=== PATIENT | male | born 1980 | race African-American/Black ===

== ENCOUNTER 2019-04-16 09:40 | Emergency (ER) | payer MEDICARE, OTHER ==
[~2019-04-16] VITALS: Ht 177.8 cm; Wt 68.6 kg
--- OUTSIDE RECORDS SUMMARY | 2019-04-16 09:44 | XMS REPORT | Summary of Care ---
Author Author [facility] Organization [facility] Address Unknown Phone Unavailable Encounter HQ [id number]) [id number] Date(s): 10/17/16 - 10/17/16 [facility] [address] [place] [address]- Discharge Disposition: Home or Self Care Attending Physician: Misty Duque MD Admitting Physician: Misty Duque MD Vital Signs No data available for this section Problem List Condition Effective Dates Status Health Status Informant Hypertension(Confirm Active ed) Morbid Active obesity(Confirmed) Allergies, Adverse Reactions, Alerts Substance Reaction Severity Status NKDA Active Medications No data available for this section Results No data available for this section Immunizations No data available for this section Procedures No data available for this section Social History Social History Type Response Smoking Status Never smoker; Exposure to Tobacco Smoke None; Cigarette Smoking Last 365 Days No; Reg Smoking Cessation Counseling No Assessment and Plan No data available for this section
--- OUTSIDE RECORDS SUMMARY | 2019-04-16 09:44 | XMS REPORT | Continuity of Care Document ---
Author Author [employer] Organization [employer] Address Unknown Phone Unavailable Care Team Providers Care Rim Technician Name Role Phone [employer] Unavailable Unavailable Problems Problem Status Onset Date Classification Date Reported Comments Source Unspecified abdominal pain 06/27/2018 11/03/2018 [facility] Liver disease, unspecified 05/07/2018 11/18/2018 [facility] K76.9 Active 04/21/2018 [facility] DX: R10.9/Z98.84 Active 04/09/2018 [facility] Calculus of kidney 02/16/2018 08/30/2018 [facility] N20.0 Active 02/10/2018 [facility] Calculus of ureter 11/11/2017 03/12/2018 [facility] Epigastric pain 11/03/2017 03/12/2018 [facility] ABD PAIN/ BACK PAIN Active 11/02/2017 [facility] VOMITTING Active 11/01/2017 [facility] Acute kidney failure, unspecified 10/21/2017 01/20/2018 [facility] Low back pain 10/15/2017 01/14/2018 [facility] [place] ACUTE KIDNEY INSUFFICIENCY, DEHYDRATION Active 10/11/2017 [facility] VOMITING Active 10/11/2017 [facility] UNK Active 09/10/2017 [facility] K44.9 E66.01 Active 09/10/2017 [facility] LUMBAR Active 08/12/2017 [facility] [place] XRAY Active 07/11/2017 [facility] FIRST NIGHT 53047 Active 06/12/2017 [facility] E11.9 TYPE 2 DIABETES MELLITUS WITHOUT C Active 06/02/2017 [facility] PAIN Active 10/26/2016 [facility] [place] BACK Active 10/26/2016 [facility] [place] DX: E66.01=MORBID (SEVERE) OBESITY DUE Active 10/24/2016 [facility] ABD PAIN RUQ R10.11 SY WEBB Active 07/31/2016 [facility] PAIN IN UNSPECIFIED JOINT Active 05/18/2015 [place] V58.69 - LONG-TERM USE M Active 10/07/2014 D[facility] Hypertensive disorder, systemic arterial (disorder) Active Problem 11/18/2018 [facility] [place], [facility] Morbid obesity (disorder) Active Problem 11/18/2018 [facility] [place], [facility] [place] Knee pain (finding) Resolved Problem 11/18/2018 [facility], [facility] [place] Pain in thoracic spine 01/14/2018 [facility] Abnormal posture 01/14/2018 [facility] Gastroesophageal reflux disease (disorder) Resolved Problem 08/05/2017 [facility], [facility] [place] Depressive disorder (disorder) Resolved Problem 08/05/2017 [facility], [facility] [place] Disorder of kidney and ureter, unspecified 01/20/2018 [facility] Body mass index (BMI) 40.0-44.9, adult 01/20/2018 [facility] Morbid (severe) obesity due to excess calories 02/08/2018 [facility] Dehydration 01/20/2018 [facility] Nausea with vomiting, unspecified 01/20/2018 [facility] Right upper quadrant pain 01/20/2018 [facility] Essential (primary) hypertension 03/12/2018 [facility] Arthropathic psoriasis, unspecified 01/20/2018 [facility] Bariatric surgery status 11/03/2018 [facility] Type 2 diabetes mellitus without complications 01/08/2018 [facility] Psoriasis, unspecified 01/08/2018 [facility] Unspecified osteoarthritis, unspecified site 01/08/2018 [facility] Diaphragmatic hernia without obstruction or gangrene 01/08/2018 [facility] Body mass index (BMI) 45.0-49.9, adult 01/08/2018 [facility] Gastro-esophageal reflux disease without esophagitis 02/08/2018 [facility] Vomiting, unspecified 03/12/2018 [facility] Pleural effusion, not elsewhere classified 11/03/2018 [facility] Constipation, unspecified 08/30/2018 [facility] PAIN IN UNSPECIFIED JOINT Active [facility] RIGHT UPPER QUADRANT PAIN Active [facility] LOW BACK PAIN Active [facility] OTHER HALFWAY (CURRENT) DRUG THERAPY Active [facility] PSORIASIS, UNSPECIFIED Active [facility] MORBID (SEVERE) OBESITY DUE TO EXCESS CA Active [facility] GASTRO-ESOPHAGEAL REFLUX DISEASE WITHOUT Active [facility] ENCOUNTER FOR OTHER PREPROCEDURAL EXAMIN Active [facility] DIAPHRAGMATIC HERNIA WITHOUT OBSTRUCTION Active [facility] DISORDER OF KIDNEY AND URETER, UNSPECIFI Active [facility] DEHYDRATION Active [facility] Medications Medication Details Route Status Patient Instructions Ordering Provider Order Date Source Amoxicillin 500 Mg Capsule Twice A Day Active Jobypatricia 08/04/2018 [facility] Omnipaque 300 100 mL, Route: IV, Drug Form: COLETTE SUERO, Start date: 04/16/18 11:00:00 CDT, Duration: 12 hr, Stop date: 04/16/18 22:59:00 CDTNotes: (Same as:Omnipaque 300). WASTE: F/P - Black; E - Municipal Trash Bin Inactive 04/16/2018 [facility] Phenergan 25 mg oral tablet 25 mg=1 tab, PO, Q6H, PRN Nausea, # 15 tab, 0 Refill(s) Active 11/03/2017 [facility] tramadol hydrochloride 50 MG Oral Tablet [Ultram] 50 mg=1 tab, PO, Q4H, PRN pain, X 3 day, # 20 tab, 0 Refill(s) No Longer Active 11/03/2017 [facility] tramadol hydrochloride 50 MG Oral Tablet [Ultram] 50 mg, 1 tab, Route: PO, Drug form: TAB, ONCE, Dosing Weight 118.182, kg, Priority: STAT, Start date: 11/03/17 0:08:00 CDT, Stop date: 11/03/17 0:08:00 CDTNotes: Not to exceed 400mg/day. (Same As: Ultram) Inactive 11/03/2017 [facility] Phenergan 25 mg, 1 mL, Route: IVPB, ONCE, Dosing Weight 118.182, kg, Priority: STAT, Start date: 11/03/17 0:08:00 CDT, Stop date: 11/03/17 0:08:00 CDTNotes: Do not give IV push. (Same as: Phenergan) Inactive 11/03/2017 [facility] Morphine 4 mg, 1 mL, Route: IVP, Drug form: SOLN, ONCE, Dosing Weight 118.182, kg, Priority: STAT, Start date: 11/03/17 0:07:00 CDT, Stop date: 11/03/17 0:07:00 CDTNotes: (Same as:MORPhine Sulfate) Inactive 11/03/2017 [facility] GI cocktail 30 mL, Route: PO, Drug Form: SUSP, Dosing Weight 118.182, kg, ONCE, STAT, Start date: 11/02/17 23:34:00 CDT, Stop date: 11/02/17 23:34:00 CDTNotes: G.I. Cocktail=antacid with simethicone 22.5 mL - lidocaine viscous 7.5 mL Inactive 11/03/2017 [facility] Famotidine 20 mg, 2 mL, Route: IVP, Drug form: INJ, ONCE, Dosing Weight 118.182, kg, Priority: STAT, Start date: 11/02/17 23:34:00 CDT, Stop date: 11/02/17 23:34:00 CDTNotes: (Same as: Pepcid) Can be dilute in 5-10cc NS IVP: Slow IV push over at least 2 minutes. Inactive 11/03/2017 [facility] Flomax 0.4 mg, 1 cap, Route: PO, Drug form: CAP, ONCE, Dosing Weight 118.182, kg, Start date: 11/02/17 22:29:00 CDT, Stop date: 11/02/17 22:29:00 CDTNotes: (Same As: Flomax) "Do Not Crush" No Longer Active 11/03/2017 [facility] Zofran 4 mg, 2 mL, Route: IVP, Drug form: INJ, ONCE, Dosing Weight 118.182, kg, Priority: STAT, Start date: 11/02/17 22:29:00 CDT, Stop date: 11/02/17 22:29:00 CDTNotes: (Same as: Zofran) MEDICATION WASTE Product Size: 4 mg Product Wasted: ___ mg Inactive 11/03/2017 [facility] Morphine 4 mg, 1 mL, Route: IVP, Drug form: SOLN, ONCE, Dosing Weight 118.182, kg, Priority: STAT, Start date: 11/02/17 22:29:00 CDT, Stop date: 11/02/17 22:29:00 CDTNotes: (Same as:MORPhine Sulfate) Inactive 11/03/2017 [facility] Sodium Chloride 0.9% (Bolus) IV 1,000 mL, 1000 ml/hr, Infuse Over: 1 hr, Route: IV, 1,000, Drug form: INJ, ONCE, Priority: STAT, Dosing Weight 118.182 kg, Start date: 11/02/17 21:15:00 CDT, Stop date: 11/02/17 21:15:00 CDT Inactive 11/03/2017 [facility] Ondansetron 4 mg, 2 mL, Route: IVP, Drug form: INJ, ONCE, Dosing Weight 118.182, kg, Priority: STAT, Start date: 11/02/17 21:15:00 CDT, Stop date: 11/02/17 21:15:00 CDTNotes: (Same as: Leslie) MEDICATION WASTE Product Size: 4 mg Product Wasted: ___ mg Inactive 11/03/2017 [facility] Saline Flush 0.9% 10 mL, Route: IVP, Drug Form: INJ, Dosing Weight 118.182, kg, PRN, PRN Line Flush, Start date: 11/02/17 21:15:00 CDT, Duration: 30 day, Stop date: 12/02/17 21:14:00 CDTNotes: (Same as: BD Posiflush) No Longer Active 11/03/2017 [facility] ibuprofen 800 mg oral tablet 800 mg=1 tab, PO, Q8H, PRN Pain, Take with food, X 5 day, # 30 tab, 0 Refill(s) No Longer Active 11/02/2017 [facility] Ondansetron 4 MG Disintegrating Tablet 4 mg=1 tab, PO, TID, PRN Nausea / Vomiting, Dissolve tab under tongue, # 20 tab, 0 Refill(s) Active 11/02/2017 [facility] Acetaminophen 300 MG / Codeine Phosphate 30 MG Oral Tablet [Tylenol with Codeine #3] 1 - 2 tab, PO, Q6H, PRN Pain, X 4 day, # 20 tab, 0 Refill(s) No Longer Active 11/02/2017 [facility] Tamsulosin hydrochloride 0.4 MG Oral Capsule [Flomax] 0.4 mg=1 cap, PO, QPM, May discontinue when pain free, # 7 cap, 0 Refill(s) Active 11/02/2017 [facility] Ciprofloxacin 500 MG Oral Tablet [Cipro] 500 mg=1 tab, PO, Q12H, X 7 day, # 14 tab, 0 Refill(s) No Longer Active 11/02/2017 [facility] Ketorolac 30 mg, Route: IVP, Drug form: INJ, ONCE, Dosing Weight 118.182, kg, Priority: STAT, Start date: 11/01/17 22:50:00 CDT, Stop date: 11/01/17 22:50:00 CDT Inactive 11/02/2017 [facility] Sodium Chloride 0.9% (Bolus) IV 1,000 mL, 1000 ml/hr, Infuse Over: 1 hr, Route: IV, 1,000, Drug form: INJ, ONCE, Priority: STAT, Dosing Weight 118.182 kg, Start date: 11/01/17 22:21:00 CDT, Stop date: 11/01/17 22:21:00 CDT Inactive 11/02/2017 [facility] Morphine 4 mg, 1 mL, Route: IVP, Drug form: SOLN, ONCE, Dosing Weight 118.182, kg, Priority: STAT, Start date: 11/01/17 22:21:00 CDT, Stop date: 11/01/17 22:21:00 CDTNotes: (Same as:MORPhine Sulfate) Inactive 11/02/2017 [facility] Ondansetron 4 mg, 2 mL, Route: IVP, Drug form: INJ, ONCE, Dosing Weight 118.182, kg, Priority: STAT, Start date: 11/01/17 22:21:00 CDT, Stop date: 11/01/17 22:21:00 CDTNotes: (Same as: Zofran) MEDICATION WASTE Product Size: 4 mg Product Wasted: ___ mg Inactive 11/02/2017 [facility] pantoprazole 40 MG Enteric Coated Tablet [Protonix] 40 mg=1 tab, PO, Daily, # 30 tab, 1 Refill(s), Pharmacy: [facility]/pharmacy #[id number] Active 10/14/2017 [facility] Sucralfate 100 MG/ML Oral Suspension [Carafate] 1 gm=10 ml, PO, QID-Before Meals, # 560 mL, 0 Refill(s), Pharmacy: [facility]/pharmacy #[id number] Active 10/14/2017 [facility] Amlodipine 5 mg, 1 tab, Route: PO, Drug form: TAB, Daily, Dosing Weight 129.545, kg, Start date: 10/14/17 9:00:00 CDT, Duration: 30 day, Stop date: 11/12/17 9:00:00 CDTNotes: (Same as: Norvasc) Inactive 10/14/2017 [facility] morphine Sulfate 6 mg, 3 mL, Route: PO, Drug form: SOLN, Q4H, PRN Pain Score 7-10, Start date: 10/13/17 15:08:00 CDT, Stop date: 11/12/17 15:07:00 CDTNotes: (Same as:MORPhine Sulfate) No Longer Active 10/13/2017 [facility] Reglan 10 mg, 2 mL, Route: IVP, Drug form: SOLN, Q6H, Dosing Weight 129.545, kg, Start date: 10/13/17 12:00:00 CDT, Duration: 30 day, Stop date: 11/12/17 6:00:00 CDTNotes: (Same as: Reglan) No Longer Active 10/13/2017 [facility] Sodium Chloride 0.9% IV 1,000 mL + M.V.I.-12 10 mL Daily + folic acid IV 1 mg Daily + thiamine IV 5 1,000 mL, Rate: 100 ml/hr, Infuse over: 10.2 hr, Route: IV, Dosing Weight 129.545 kg, Total Volume: 1,015.2, Start date: 10/13/17 9:34:00 CDT, Duration: 1 doses or times, Stop date: 10/13/17 19:45:00 CDT, 2.55, m2 Inactive 10/13/2017 [facility] Protonix 40 mg, Route: IVP, Drug form: INJ, Daily, Dosing Weight 129.545, kg, Patient is NPO, Start date: 10/13/17 9:00:00 CDT, Duration: 30 day, Stop date: 11/11/17 9:00:00 CDTNotes: For IV push reconstitute with 10 ml 0.9% sodium chloride and push over 2 minutes. (Same as: Protonix) No Longer Active 10/13/2017 [facility] Lovenox 40 mg, 0.4 mL, Route: SUB-Q, Drug form: INJ, [id number], Dosing Weight 129.545, kg, Start date: 10/12/17 14:00:00 CDT, Duration: 30 day, Stop date: 11/10/17 14:00:00 CDTNotes: (Same as: Lovenox) No Longer Active 10/12/2017 [facility] Sucralfate 100 MG/ML Oral Suspension [Carafate] 1 gm, 1 tab, Route: PO, Drug form: TAB, QID, Dosing Weight 129.545, kg, Start date: 10/12/17 13:00:00 CDT, Duration: 30 day, Stop date: 11/11/17 9:00:00 CDTNotes: May interfere w/enteral feeds - Take 1 hr before or 2 hr after antacids, dairy pdt, meals & minerals - On empty stomach. For patients unable to swallow tablet, dissolve in 10mL - 30mL of water or juice and stir before giving. (Same As: Carafate) No Longer Active 10/12/2017 [facility] Hydralazine 10 mg, 0.5 mL, Route: IVP, Drug form: INJ, Q6H, Dosing Weight 129.545, kg, PRN Elevated BP, Start date: 10/12/17 12:45:00 CDT, Duration: 30 day, Stop date: 11/11/17 12:44:00 CDTNotes: (Same as: Prema burroughs) Push over 5 minutes No Longer Active 10/12/2017 [facility] Morphine 2 mg, 1 mL, Route: IVP, Drug form: SOLN, Q4H, Dosing Weight 129.091, kg, PRN Pain Score 7-10, Start date: 10/12/17 12:07:00 CDT, Duration: 30 day, Stop date: 11/11/17 12:06:00 CDT No Longer Active 10/12/2017 [facility] Sodium Chloride 0.9% IV 1,000 mL + M.V.I.-12 10 mL Daily + folic acid IV 1 mg Daily + thiamine IV 5 1,000 mL, Rate: 100 ml/hr, Infuse over: 10.2 hr, Route: IV, Dosing Weight 129.545 kg, Total Volume: 1,015.2, Start date: 10/12/17 12:02:00 CDT, Duration: 1 doses or times, Stop date: 10/12/17 22:13:00 CDT, 2.55, m2 Inactive 10/12/2017 [facility] D5W 1/2NS + KCL 20mEq/L 1000ml (Premix) 1,000 mL 1,000 mL, Rate: 125 ml/hr, Infuse over: 8 hr, Route: IV, Dosing Weight 129.545 kg, Total Volume: 1,000, Start date: 10/12/17 9:28:00 CDT, Duration: 30 day, Stop date: 11/11/17 9:27:00 CDT, 2.55, c6Mlvod: PREMIX IV - Do Not Alter WASTE: F/P - Sink; E - Municipal Trash Bin No Longer Active 10/12/2017 [facility] Omnipaque 300 100 mL, Route: PO, Drug Form: SOLN, Dosing Weight 129.545, kg, ONCE, Start date: 10/12/17 8:29:00 CDT, Stop date: 10/12/17 8:29:00 CDTNotes: (Same as:Omnipaque 300). WASTE: F/P - Black; E - Municipal Trash Bin Inactive 10/12/2017 [facility] NS (Bolus) IV 1,000 mL, 1,000 ml/hr, Infuse Over: 1 hr, Route: IV, 1,000, Drug form: INJ, ONCE, Priority: STAT, Dosing Weight 129.091 kg, Start date: 10/11/17 21:03:00 CDT, Stop date: 10/11/17 21:03:00 CDT No Longer Active 10/12/2017 [facility] Saline Flush 0.9% 10 ml, Route: IVP, Drug Form: INJ, Dosing Weight 129.091, kg, PRN, PRN Line Flush, Start date: 10/11/17 21:02:00 CDT, Duration: 30 day, Stop date: 11/10/17 21:01:00 CDTNotes: (Same as: BD Posiflush) No Longer Active 10/12/2017 [facility] Sodium Chloride 0.9% IV 1,000 mL 1,000 mL, Rate: 125 ml/hr, Infuse over: 8 hr, Route: IV, Dosing Weight 129.091 kg, Total Volume: 1,000, Start date: 10/11/17 21:02:00 CDT, Duration: 30 day, Stop date: 11/10/17 21:01:00 CDT, 2.54, m2 No Longer Active 10/12/2017 [facility] Morphine 4 mg, 1 mL, Route: IVP, Drug form: SOLN, Q4H, Dosing Weight 129.091, kg, PRN Pain Score 7-10, Start date: 10/11/17 21:02:00 CDT, Duration: 30 day, Stop date: 11/10/17 21:01:00 CDTNotes: (Same as:MORPhine Sulfate) No Longer Active 10/12/2017 [facility] Ondansetron 4 mg, 2 mL, Route: IVP, Drug form: INJ, Q4H, Dosing Weight 129.091, kg, PRN Nausea & Vomiting, Start date: 10/11/17 21:02:00 CDT, Duration: 30 day, Stop date: 11/10/17 21:01:00 CDTNotes: (Same as: Leslie) MEDICATION WASTE Product Size: 4 mg Product Wasted: ___ mg No Longer Active 10/12/2017 [facility] NS (Bolus) IV 1,000 mL, 1,000 ml/hr, Infuse Over: 1 hr, Route: IV, 1,000, Drug form: INJ, ONCE, Priority: STAT, Dosing Weight 129.091 kg, Start date: 10/11/17 20:46:00 CDT, Stop date: 10/11/17 20:46:00 CDT Inactive 10/12/2017 [facility] Acetaminophen 21.7 MG/ML / Hydrocodone Bitartrate 0.5 MG/ML Oral Solution 15 mL, PO, Q6H, PRN Pain Score 4-6, 0 Refill(s) No Longer Active 10/12/2017 [facility] Acetaminophen 21.7 MG/ML / Hydrocodone Bitartrate 0.67 MG/ML Oral Solution 15 mL, PO, Q6H, PRN Pain Score 4-6, 0 Refill(s) Inactive 10/12/2017 [facility] lisinopril 40 mg oral tablet 40 mg=1 tab, PO, Daily, 0 Refill(s) Active 10/12/2017 [facility] NS 1,000 mL 1,000 mL, Rate: 125 ml/hr, Infuse over: 8 hr, Route: IV, Dosing Weight 129.091 kg, Total Volume: 1,000, Start date: 10/11/17 20:21:00 CDT, Duration: 30 day, Stop date: 11/10/17 20:20:00 CDT, 2.54, m2 Inactive 10/12/2017 [facility] Sodium Chloride 0.9% IV 984.8 mL + M.V.I.-12 10 mL Daily + folic acid IV 1 mg Daily + thiamine IV 5 984.8 mL, Rate: 100 ml/hr, Infuse over: 10 hr, Route: IV, Dosing Weight 129.091 kg, Total Volume: 1,000, Start date: 10/11/17 16:30:00 CDT, Duration: 1 doses or times, Stop date: 10/12/17 2:29:00 CDT, 2.54, m2 Inactive 10/11/2017 [facility] Ondansetron 4 mg, 2 mL, Route: IVP, Drug form: INJ, ONCE, Dosing Weight 129.091, kg, Priority: STAT, Start date: 10/11/17 15:51:00 CDT, Stop date: 10/11/17 15:51:00 CDTNotes: (Same as: Leslie) MEDICATION WASTE Product Size: 4 mg Product Wasted: ___ mg Inactive 10/11/2017 [facility] Sodium Chloride 0.9% (Bolus) IV 1,000 mL, 1000 ml/hr, Infuse Over: 1 hr, Route: IV, 1,000, Drug form: INJ, ONCE, Priority: STAT, Dosing Weight 129.091 kg, Start date: 10/11/17 15:51:00 CDT, Stop date: 10/11/17 15:51:00 CDT Inactive 10/11/2017 [facility] Saline Flush 0.9% 10 mL, Route: IVP, Drug Form: INJ, Dosing Weight 129.091, kg, PRN, PRN Line Flush, Start date: 10/11/17 15:51:00 CDT, Duration: 30 day, Stop date: 11/10/17 15:50:00 CDTNotes: (Same as: BD Posiflush) No Longer Active 10/11/2017 [facility] Bentyl 20 mg, 2 mL, Route: IM, Drug form: INJ, ONCE, Dosing Weight 129.091, kg, Start date: 10/11/17 15:51:00 CDT, Stop date: 10/11/17 15:51:00 CDTNotes: (Same as: Bentyl) Inactive 10/11/2017 [facility] Ondansetron 4 MG Oral Tablet [Zofran] 4 mg=1 tab, PO, Q6H, PRN Nausea/Vomiting, please crush before giving, # 30 tab, 0 Refill(s), Pharmacy: [facility]/pharmacy #[id number] No Longer Active 10/02/2017 [facility] Acetaminophen 21.7 MG/ML / Hydrocodone Bitartrate 0.67 MG/ML Oral Solution 15 ml, PO, Q6H, PRN for pain, X 7 day, # 400 mL, 0 Refill(s) No Longer Active 10/01/2017 [facility] pregabalin 75 mg oral capsule 75 mg=1 cap, PO, Q12H, 0 Refill(s) No Longer Active 10/01/2017 [facility] lisinopril 20 mg oral tablet 40 mg=2 tab, PO, Daily, 0 Refill(s) No Longer Active 10/01/2017 [facility] DULoxetine 30 mg oral delayed release capsule 30 mg=1 cap, PO, Daily, 0 Refill(s) Active 10/01/2017 [facility] amLODIPine 5 mg oral tablet 5 mg=1 tab, PO, Daily, 0 Refill(s) Active 10/01/2017 [facility] Ketorolac 15 mg, 1 mL, Route: IVP, Drug form: INJ, Q6H, Dosing Weight 137.841, kg, Start date: 10/01/17 12:00:00 [employer] APPRENTICE DISPENSING, Stop date: 10/03/17 6:00:00 CSTNotes: (Same as:Toradol) IV bolus must be given >15 seconds. Give IM administration slowly and deeply into the muscle. Not for use > 4 days. No Longer Active 10/01/2017 [facility] Lovenox 40 mg, 0.4 mL, Route: SUB-Q, Drug form: INJ, [id number], Dosing Weight 137.841, kg, Start date: 10/01/17 10:00:00 OPTICIAN APPRENTICE DISPENSING, Duration: 30 day, Stop date: 10/30/17 10:00:00 CDTNotes: (Same as: Lovenox) No Longer Active 10/01/2017 [facility] Sodium Chloride 0.9% IV 1,000 mL 1,000 mL, Rate: 125 ml/hr, Infuse over: 8 hr, Route: IV, Dosing Weight 137.841 kg, Total Volume: 1,000, Start date: 10/01/17 9:07:00 [employer] APPRENTICE DISPENSING, Duration: 30 day, Stop date: 10/31/17 9:06:00 CDT, 2.61, m2 No Longer Active 10/01/2017 [facility] Sodium Chloride 0.9% IV 984.8 mL + M.V.I.-12 10 mL Daily + folic acid IV 1 mg Daily + thiamine IV 5 984.8 mL, Rate: 100 ml/hr, Infuse over: 10 hr, Route: IV, Dosing Weight 137.841 kg, Total Volume: 1,000, Start date: 10/01/17 9:07:00 OPTICIAN APPRENTICE DISPENSING, Duration: 10 hr, Stop date: 10/01/17 19:06:00 [employer] APPRENTICE DISPENSING, 2.61, m2 Inactive 10/01/2017 [facility] Morphine 6 mg, 3 mL, Route: PO, Drug form: SOLN, Q4H, Dosing Weight 137.841, kg, PRN Pain Score 7-10, Start date: 10/01/17 9:07:00 OPTICIAN APPRENTICE DISPENSING, Duration: 30 day, Stop date: 10/31/17 9:06:00 CDTNotes: (Same as:MORPhine Sulfate) No Longer Active 10/01/2017 [facility] Ofirmev 1,000 mg, 31.23 mL, Route: PO, Drug form: LIQ, Q6H, Dosing Weight 137.841, kg, PRN Pain 1-3/Temp > 100.4 F, for > or=50 kg, Start date: 10/01/17 9:05:00 OPTICIAN APPRENTICE DISPENSING, Duration: 30 day, Stop date: 10/31/17 9:04:00 CDTNotes: Max erlthaighqjwz=2993nd/day (4 gm/day). (Same as: Tylenol) No Longer Active 10/01/2017 [facility] Amlodipine 10 mg, 2 tab, Route: PO, Drug form: TAB, Daily, Dosing Weight 137.841, kg, Start date: 10/01/17 9:00:00 OPTICIAN APPRENTICE DISPENSING, Duration: 30 day, Stop date: 10/30/17 9:00:00 CDTNotes: (Same as: Norvasc) No Longer Active 10/01/2017 [facility] Lisinopril 40 mg, 2 tab, Route: PO, Drug form: TAB, Daily, Dosing Weight 137.841, kg, Start date: 10/01/17 9:00:00 [employer]IC[employer] APPRENTICE DISPENSING, Duration: 30 day, Stop date: 10/30/17 9:00:00 CDTNotes: (Same as: Prinivil, Zestril) No Longer Active 10/01/2017 [facility] duloxetine 30 mg, 1 cap, Route: PO, Drug form: DRC, Daily, Dosing Weight 137.841, kg, Start date: 10/01/17 9:00:00 [employer] APPRENTICE DISPENSING, Duration: 30 day, Stop date: 10/30/17 9:00:00 CDTNotes: (Same as: Cymbalta) (Do Not Crush) No Longer Active 10/01/2017 [facility] Lyrica 75 mg, 1 cap, Route: PO, Drug form: CAP, Q12H, Dosing Weight 137.841, kg, Start date: 09/30/17 21:00:00 [employer] APPRENTICE DISPENSING, Duration: 30 day, Stop date: 10/30/17 9:00:00 CDTNotes: (Same as: Lyrica) No Longer Active 10/01/2017 [facility] Famotidine 20 mg, 2 mL, Route: IVP, Drug form: INJ, Q12H, Dosing Weight 137.841, kg, Start date: 09/30/17 21:00:00 [employer] APPRENTICE DISPENSING, Duration: 30 day, Stop date: 10/30/17 9:00:00 CDTNotes: (Same as: Pepcid) Can be dilute in 5-10cc NS IVP: Slow IV push over at least 2 minutes. No Longer Active 10/01/2017 [facility] scopolamine 1 patch, Route: TOP, Drug form: ERFILM, PRE OP, Start date: 09/30/17 19:00:00 [employer] APPRENTICE DISPENSING, Duration: 1 day, Stop date: 10/01/17 18:59:00 CSTNotes: "Remove old patch before application of new patch" Change patch every 72 hours (Same as: Transderm-Scop) No Longer Active 10/01/2017 [facility] Hydralazine 10 mg, 0.5 mL, Route: IVP, Drug form: INJ, Q6H, Dosing Weight 137.841, kg, PRN Hypertension, Start date: 09/30/17 18:34:00 [employer]PRENTICE DISPENSING, Duration: 30 day, Stop date: 10/30/17 18:33:00 CDTNotes: (Same as: Apre soline) Push over 5 minutes No Longer Active 10/01/2017 [facility] Metoclopramide 10 mg, 2 mL, Route: IVP, Drug form: SOLN, Q8H, Dosing Weight 137.841, kg, Start date: 09/30/17 16:00:00 [employer]ICIAN APPRENTICE DISPENSING, Duration: 30 day, Stop date: 10/30/17 8:00:00 CDTNotes: (Same as: Reglan) No Longer Active 09/30/2017 [facility] Labetalol 10 mg, 2 mL, Route: IVP, Drug form: INJ, ONCE, Dosing Weight 137.841, kg, Start date: 09/30/17 15:45:00 [employer]ICIAN APPRENTICE DISPENSING, Stop date: 09/30/17 15:45:00 CSTNotes: (Same as: Normodyne, Trandate) Push over 2 minutes Give bolus over 2-3 minutes. 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 Avoid use in elderly., Start date: 09/30/17 15:05:00 [employer]ICIAN APPRENTICE DISPENSING, Stop date: 09/30/17 15:05:00 [employer] APPRENTICE DISPENSING Inactive 09/30/2017 [facility] Promethazine 6.25 mg, Route: IVPB, ONCE, Dosing Weight 137.841, kg, PRN Nausea & Vomiting, Start date: 09/30/17 15:05:00 [employer]IC[employer] APPRENTICE DISPENSING No Longer Active 09/30/2017 [facility] Fentanyl 50 microgram, Route: IVP, Q5Min, Dosing Weight 137.841, kg, PRN Pain Score 7-10, Priority: Routine, Start date: 09/30/17 15:05:00 [employer] APPRENTICE DISPENSING, Duration: 2 doses or times, Stop date: Limited # of times No Longer Active 09/30/2017 [facility] Oxycodone 10 mg, Route: NG, Drug form: LIQ, Q4H, Dosing Weight 137.841, kg, PRN Pain Score 7-10, Start date: 09/30/17 15:05:00 [employer] APPR[employer]ICE DISPENSING, Duration: 30 day, Stop date: 10/30/17 15:04:00 CDT No Longer Active 09/30/2017 [facility] Hydromorphone 0.5 mg, Route: IVP, Q5Min, Dosing Weight 137.841, kg, PRN Pain Score 7-10, Start date: 09/30/17 15:05:00 [employer] APPRENTICE DISPENSING, Duration: 4 doses or times, Stop date: Limited # of times No Longer Active 09/30/2017 [facility] Naloxone 0.4 mg, Route: IVP, Q2MIN, Dosing Weight 137.841, kg, PRN Narcotic Reversal, Start date: 09/30/17 15:05:00 [employer] APPR[employer]ICE DISPENSING, Duration: 8 doses or times, Stop date: Limited # of times No Longer Active 09/30/2017 [facility] Flumazenil 0.2 mg, Route: IVP, PRN, Dosing Weight 137.841, kg, PRN Benzodiazepine Reversal, Initial dose, Start date: 09/30/17 15:05:00 [employer] APPR[employer]ICE DISPENSING, Duration: 30 day, Stop date: 10/30/17 16:04:00 CDT No Longer Active 09/30/2017 [facility] Diphenhydramine 12.5 mg, Route: IVP, Drug form: INJ, Q6H, Dosing Weight 137.841, kg, PRN Itching, Start date: 09/30/17 15:05:00 [employer]ICE DISPENSING, Duration: 30 day, Stop date: 10/30/17 15:04:00 CDT No Longer Active 09/30/2017 [facility] Albuterol 0.83 MG/ML Inhalant Solution 2.49 mg, Route: NEB, Q20Min, Dosing Weight 137.841, kg, PRN Wheezing, Priority: STAT, Start date: 09/30/17 15:05:00 [employer] APPR[employer]ICE DISPENSING, Duration: 30 day, Stop date: 10/30/17 16:04:00 CDT No Longer Active 09/30/2017 [facility] Meperidine 12.5 mg, Route: IVP, Q30Min, Dosing Weight 137.841, kg, PRN Other -See Comment, For shivering, Start date: 09/30/17 15:05:00 [employer] APPR[employer]ICE DISPENSING, Duration: 2 doses or times, Stop date: Limited # of times No Longer Active 09/30/2017 [facility] Ondansetron 4 mg, Route: IVP, ONCE, Dosing Weight 137.841, kg, PRN Nausea & Vomiting, Start date: 09/30/17 15:05:00 [employer]ICE DISPENSING No Longer Active 09/30/2017 [facility] Acetaminophen 1,000 mg, Route: IVPB, Drug form: INJ, ONCE, Dosing Weight 137.841, kg, PRN Pain Score 1-3, Start date: 09/30/17 15:05:00 [employer]ICE DISPENSING No Longer Active 09/30/2017 [facility] Naloxone 0.04 mg, 0.1 mL, Route: IVP, Drug form: INJ, Q2MIN, Dosing Weight 137.841, kg, PRN Narcotic Reversal, Start date: 09/30/17 14:59:00 [employer] APPRENTICE DISPENSING, Duration: 30 day, Stop date: 10/30/17 15:58:00 CDTNotes: Same as Narcan No Longer Active 09/30/2017 [facility] Morphine 30 mg, 30 mL, Route: IV, Initial Loading Dose: 2 mg, [employer] SPECIALIST Dose: 1 mg, [employer] HEALTH SPECIALIST Lockout: 10 minutes, Continuous Basal Rate: 0 mg, 4 Hour Limit (In MG): 30, Drug Form: INJ, Continuous, Start date: 09/30/17 14: 59:00 [employer]PR[employer]ICE DISPENSING, Duration: 30 day, Stop date: 10/30/17...Notes: Dose: Delay: Basal rate: 4hr limit: (Same as:Yelitza) No Longer Active 09/30/2017 [facility] Acetaminophen 21.7 MG/ML / Hydrocodone Bitartrate 0.5 MG/ML Oral Solution 15 mL, Route: PO, Drug Form: SOLN, Dosing Weight 137.841, kg, Q6H, PRN Pain Score 4-6, Start date: 09/30/17 14:58:00 [employer] APPR[employer]ICE DISPENSING, Duration: 30 day, Stop date: 10/30/17 14:57:00 CDTNotes: Do not exceed 4gm/day of acetaminophen. (Same as: [place] 325/7.5) No Longer Active 09/30/2017 [facility] glycopyrrolate (ANES) Route: IV, Drug form: INJ, ONCE, Stop date: 09/30/17 14:57:00 [employer] DISPENSING Inactive 09/30/2017 [facility] neostigmine (ANES) Route: IV, Drug form: INJ, ONCE, Stop date: 09/30/17 14:57:00 [employer]ICE DISPENSING Inactive 09/30/2017 [facility] Ondansetron 4 mg, 2 mL, Route: IVP, Drug form: INJ, Q12H, Dosing Weight 137.841, kg, PRN Nausea & Vomiting, Start date: 09/30/17 14:51:00 [employer]ICE DISPENSING, Duration: 30 day, Stop date: 10/30/17 14:50:00 CDTNotes: (Same as: Zofran) MEDICATION WASTE Product Size: 4 mg Product Wasted: ___ mg No Longer Active 09/30/2017 [facility] Promethazine 12.5 mg, 0.5 mL, Route: IVPB, Q4H, Dosing Weight 137.841, kg, PRN Nausea & Vomiting, Start date: 09/30/17 14:51:00 [employer]ICE DISPENSING, Duration: 30 day, Stop date: 10/30/17 14:50:00 CDTNotes: Do not give IV push. (Same as: Phenergan) No Longer Active 09/30/2017 [facility] Sodium Chloride 0.9% IV 1,000 mL 1,000 mL, Rate: 125 ml/hr, Infuse over: 8 hr, Route: IV, Dosing Weight 137.841 kg, Total Volume: 1,000, Start date: 09/30/17 14:51:00 [employer]ICE DISPENSING, Duration: 30 day, Stop date: 10/30/17 14:50:00 CDT, 2.61, m2 No Longer Active 09/30/2017 [facility] ePHEDrine (ANES) Route: IV, Drug form: INJ, ONCE, Stop date: 09/30/17 13:51:00 [employer] DISPENSING Inactive 09/30/2017 [facility] phenylephrine (ANES) Route: IV, Drug form: INJ, ONCE, Stop date: 09/30/17 13:46:00 [employer] DISPENSING Inactive 09/30/2017 [facility] ondansetron (ANES) Route: IV, Drug form: INJ, ONCE, Stop date: 09/30/17 13:41:00 [employer] DISPENSING Inactive 09/30/2017 [facility] rocuronium (ANES) Route: IV, Drug form: INJ, ONCE, Stop date: 09/30/17 13:36:00 [employer]ICE DISPENSING Inactive 09/30/2017 [facility] propofol (ANES) Route: IV, Drug form: INJ, ONCE, Stop date: 09/30/17 13:36:00 [employer] AP[employer]ICE DISPENSING Inactive 09/30/2017 [facility] fentaNYL (ANES) Route: IV, Drug form: INJ, ONCE, Stop date: 09/30/17 13:36:00 [employer] APPR[employer]ICE DISPENSING Inactive 09/30/2017 [facility] lidocaine (ANES) Route: IV, Drug form: INJ, ONCE, Stop date: 09/30/17 13:30:00 [employer]ICE DISPENSING Inactive 09/30/2017 [facility] midazolam (ANES) Route: IV, Drug form: SOLN, ONCE, Stop date: 09/30/17 13:30:00 [employer] APPR[employer]ICE DISPENSING Inactive 09/30/2017 [facility] acetaminophen (ANES) 10 mg Route: IV, Drug form: INJ, Start date: 09/30/17 13:08:00 [employer]IC[employer] APPRENTICE DISPENSING, Stop date: 09/30/17 14:08:00 [employer] APPRENTICE DISPENSING Inactive 09/30/2017 [facility] cefOXitin (ANES) 1000 mg Route: IV, Drug form: INJ, Start date: 09/30/17 12:50:00 [employer]IAN APPRENTICE DISPENSING, Stop date: 09/30/17 13:50:00 [employer] APPR[employer]ICE DISPENSING Inactive 09/30/2017 [facility] Lactated Ringers Injection IV (ANES) 1000 mL Route: IV, Total Volume: 1,000, Start date: 09/30/17 12:39:00 [employer] APPRENTICE DISPENSING, Stop date: 09/30/17 13:39:00 [employer]ICE DISPENSING Inactive 09/30/2017 [facility] 72 HR Scopolamine 0.0139 MG/HR Transdermal Patch [Transderm Scop] 1 patch, Route: TOP, Drug Form: ERFILM, Dosing Weight 140.909, kg, PRE OP, Start date: 09/30/17 10:00:00 [employer] APPRENTICE DISPENSING, Duration: 30 day, Stop date: 10/30/17 10:59:00 CDT Inactive 09/30/2017 [facility] heparin 5,000 unit, Route: SUB-Q, ONCE, Dosing Weight 140.909, kg, Start date: 09/30/17 9:33:00 [employer] APPRENTICE DISPENSING, Stop date: 09/30/17 9:33:00 [employer] APPR[employer]ICE DISPENSING Inactive 09/30/2017 [facility] Calcium Chloride 0.0014 MEQ/ML / Potassium Chloride 0.004 MEQ/ML / Sodium Chloride 0.103 MEQ/ML / Sodium Lactate 0.028 MEQ/ML Injectable Solution 1,000 mL, Rate: 25 ml/hr, Infuse over: 40 hr, Route: IV, Dosing Weight 140.909 kg, Total Volume: 1,000, Start date: 09/30/17 9:32:00 [employer]ICE DISPENSING, Duration: 30 day, Stop date: 10/30/17 9:31:00 CDT, 2.64, m2 Inactive 09/30/2017 [facility] citalopram 20 mg oral tablet 20 mg=1 tab, PO, Daily, # 30 tab, 0 Refill(s), Pharmacy: [facility]/pharmacy #[id number] Active [facility] citalopram 20 mg oral tablet 20 mg=1 tab, PO, Daily, # 30 tab, 0 Refill(s), Pharmacy: [facility]/pharmacy #[id number] Active 06/25/2017 [facility] Sodium Chloride 0.9% (Bolus) IV 500 mL, 0 ml/hr, Infuse Over: 0 hr, Route: IV, 500, Drug form: INJ, ONCE, Dosing Weight 133.636 kg, Start date: 02/17/17 14:55:00 CDT, Stop date: 02/17/17 14:55:00 CDT, Bolus Inactive 02/17/2017 [facility] Naproxen 500 mg=1 tab, PO, BID, PRN Pain, # 30 tab, 0 Refill(s) Active 02/17/2017 [facility] Allergies, Adverse Reactions, Alerts No Known Medication Allergies Immunizations No Data Provided for This Section Results Order Name Results Value Reference Range Date Interpretation Comments Source CHEM PANEL Lipase Lvl 164 73 - 393 11/03/2017 [facility] CHEM PANEL Globulin 4.1 2.7 - 4.2 11/03/2017 [facility] CHEM PANEL Total Protein 8.2 6.4 - 8.4 11/03/2017 [facility] CHEM PANEL Albumin Lvl 4.1 3.5 - 5.0 11/03/2017 [facility] CHEM PANEL A/G Ratio 1.0 0.7 - 1.6 11/03/2017 [facility] CHEM PANEL Bili Total 0.6 0.2 - 1.3 11/03/2017 [facility] CHEM PANEL Alk Phos 64 39 - 136 11/03/2017 [facility] CHEM PANEL ALT 32 0 - 65 11/03/2017 [facility] CHEM PANEL AST 16 0 - 37 11/03/2017 [facility] CHEM PANEL eGFR 70 11/03/2017 Result Comment: The eGFR is calculated using the CKD-EPI formula. In most young, healthy individuals the eGFR will be >90 mL/min/1.73m2. The eGFR declines with age. An eGFR of 60-89 may be normal in some populations, particularly the elderly, for whom the CKD-EPI formula has not been extensively validated. Use of the eGFR is not recommended in the following populations:

Individuals with unstable creatinine concentrations, including patients and those with serious co-morbid conditions.

Patients with extremes in muscle mass or diet.

The data above are obtained from the National Kidney Disease Education Program (NKDEP) which additionally recommends that when the eGFR is used in patients with extremes of body mass index for purposes of drug dosing, the eGFR should be multiplied by the estimated BMI. [facility] CHEM PANEL Potassium Lvl 3.4 3.5 - 5.1 11/03/2017 [facility] CHEM PANEL Sodium Lvl 138 135 - 145 11/03/2017 [facility] CHEM PANEL Chloride Lvl 101 95 - 109 11/03/2017 [facility] CHEM PANEL Calcium Lvl 8.8 8.5 - 10.5 11/03/2017 [facility] CHEM PANEL CO2 29 24 - 32 11/03/2017 [facility] CHEM PANEL AGAP 11.4 10.0 - 20.0 11/03/2017 [facility] CHEM PANEL B/C Ratio 3 6 - 25 11/03/2017 [facility] CHEM PANEL Glucose Lvl 77 70 - 99 11/03/2017 [facility] CHEM PANEL Creatinine Lvl 1.46 0.50 - 1.40 11/03/2017 [facility] CHEM PANEL BUN 4 7 - 22 11/03/2017 [facility] HEMATOLOGY Hgb 12.9 14.0 - 18.0 11/03/2017 [facility] Hct 39.3 42.0 - 54.0 11/03/2017 [facility] WBC 7.0 3.7 - 10.4 11/03/2017 [facility] RBC 4.70 4.70 - 6.10 11/03/2017 [facility] Platelet 327 133 - 450 11/03/2017 [facility] MPV 8.3 7.4 - 10.4 11/03/2017 [facility] MCV 83.5 80.0 - 94.0 11/03/2017 [facility] MCHC 32.8 32.0 - 36.0 11/03/2017 [facility] MCH 27.4 27.0 - 31.0 11/03/2017 [facility] RDW 14.1 11.5 - 14.5 11/03/2017 [facility] Eosinophils # 0.2 0.0 - 0.5 11/03/2017 [facility] Basophils # 0.1 0.0 - 0.2 11/03/2017 [facility] Monocytes # 0.8 0.0 - 0.8 11/03/2017 [facility] Segs-Bands # 3.3 1.5 - 8.1 11/03/2017 [facility] Lymphocytes # 2.6 1.0 - 5.5 11/03/2017 [facility] Monocytes 11.6 2.0 - 12.0 11/03/2017 [facility] Eosinophils 2.9 0.0 - 4.0 11/03/2017 [facility] Basophils 0.8 0.0 - 1.0 11/03/2017 [facility] Lymphocytes 36.9 20.0 - 40.0 11/03/2017 [facility] Segs 47.8 45.0 - 75.0 11/03/2017 [facility] URINE AND STOOL UA Bili Negative *NA* (11/02/17 10:09 PM) Negative 11/03/2017 [facility] URINE AND STOOL UA Color Yellow *NA* (11/02/17 10:09 PM) Yellow 11/03/2017 [facility] URINE AND STOOL UA Spec Grav 1.014 <=1.030 11/03/2017 [facility] URINE AND STOOL UA Turbidity Clear (11/02/17 10:09 PM) Clear 11/03/2017 [facility] URINE AND STOOL UA RBC 5 0 - 2 11/03/2017 [facility] URINE AND STOOL UA Mucus Few /LPF None Seen /LPF 11/03/2017 [facility] URINE AND STOOL UA Amorph Michelle Occasional /HPF None Seen /HPF 11/03/2017 [facility] URINE AND STOOL UA Urobilinogen <=1.0 mg/dL 0.1 - 1.0 11/03/2017 [facility] URINE AND STOOL UA Nitrite Negative (11/02/17 10:09 PM) Negative 11/03/2017 [facility] URINE AND STOOL UA Leuk Est Negative (11/02/17 10:09 PM) Negative 11/03/2017 [facility] URINE AND STOOL UA Blood Moderate *ABN* (11/02/17 10:09 PM) Negative 11/03/2017 [facility] URINE AND STOOL UA WBC 4 0 - 5 11/03/2017 [facility] URINE AND STOOL UA Sq Epi Occasional /LPF Few /LPF 11/03/2017 [facility] URINE AND STOOL UA Glucose Negative mg/dL Negative mg/dL 11/03/2017 [facility] URINE AND STOOL UA Ketones 80 mg/dL Negative mg/dL 11/03/2017 [facility] URINE AND STOOL UA pH 5.0 5.0 - 8.0 11/03/2017 [facility] URINE AND STOOL UA Protein 30 mg/dL Negative mg/dL 11/03/2017 [facility] CHEM PANEL eGFR 68 11/02/2017 Result Comment: The eGFR is calculated using the CKD-EPI formula. In most young, healthy individuals the eGFR will be >90 mL/min/1.73m2. The eGFR declines with age. An eGFR of 60-89 may be normal in some populations, particularly the elderly, for whom the CKD-EPI formula has not been extensively validated. Use of the eGFR is not recommended in the following populations:

Individuals with unstable creatinine concentrations, including patients and those with serious co-morbid conditions.

Patients with extremes in muscle mass or diet.

The data above are obtained from the National Kidney Disease Education Program (NKDEP) which additionally recommends that when the eGFR is used in patients with extremes of body mass index for purposes of drug dosing, the eGFR should be multiplied by the estimated BMI. [facility] CHEM PANEL Bili Total 0.6 0.2 - 1.3 11/02/2017 [facility] CHEM PANEL Total Protein 8.6 6.4 - 8.4 11/02/2017 [facility] CHEM PANEL AST 18 0 - 37 11/02/2017 [facility] CHEM PANEL Alk Phos 65 39 - 136 11/02/2017 [facility] CHEM PANEL Albumin Lvl 4.3 3.5 - 5.0 11/02/2017 [facility] CHEM PANEL ALT 36 0 - 65 11/02/2017 [facility] CHEM PANEL Chloride Lvl 100 95 - 109 11/02/2017 [facility] CHEM PANEL CO2 29 24 - 32 11/02/2017 [facility] CHEM PANEL Sodium Lvl 137 135 - 145 11/02/2017 [facility] CHEM PANEL Potassium Lvl 4.1 3.5 - 5.1 11/02/2017 [facility] CHEM PANEL Calcium Lvl 9.1 8.5 - 10.5 11/02/2017 [facility] CHEM PANEL Creatinine Lvl 1.50 0.50 - 1.40 11/02/2017 [facility] CHEM PANEL Glucose Lvl 113 70 - 99 11/02/2017 [facility] CHEM PANEL BUN 5 7 - 22 11/02/2017 [facility] CHEM PANEL AGAP 12.1 10.0 - 20.0 11/02/2017 [facility] CHEM PANEL B/C Ratio 3 6 - 25 11/02/2017 [facility] CHEM PANEL Globulin 4.3 2.7 - 4.2 11/02/2017 [facility] CHEM PANEL A/G Ratio 1.0 0.7 - 1.6 11/02/2017 [facility] CHEM PANEL Lipase Lvl 168 73 - 393 11/02/2017 [facility] HEMATOLOGY WBC 9.3 3.7 - 10.4 11/02/2017 [facility] HEMATOLOGY RBC 4.91 4.70 - 6.10 11/02/2017 [facility] HEMATOLOGY MPV 8.6 7.4 - 10.4 11/02/2017 [facility] HEMATOLOGY Hgb 13.4 14.0 - 18.0 11/02/2017 [facility] HEMATOLOGY Hct 41.0 42.0 - 54.0 11/02/2017 [facility] HEMATOLOGY MCV 83.5 80.0 - 94.0 11/02/2017 [facility] HEMATOLOGY MCHC 32.7 32.0 - 36.0 11/02/2017 [facility] HEMATOLOGY MCH 27.3 27.0 - 31.0 11/02/2017 [facility] HEMATOLOGY Platelet 317 133 - 450 11/02/2017 [facility] HEMATOLOGY RDW 14.2 11.5 - 14.5 11/02/2017 [facility] HEMATOLOGY Monocytes 7.5 2.0 - 12.0 11/02/2017 [facility] HEMATOLOGY Lymphocytes 12.6 20.0 - 40.0 11/02/2017 [facility] HEMATOLOGY Segs 79.1 45.0 - 75.0 11/02/2017 [facility] HEMATOLOGY Monocytes # 0.7 0.0 - 0.8 11/02/2017 [facility] HEMATOLOGY Lymphocytes # 1.2 1.0 - 5.5 11/02/2017 [facility] HEMATOLOGY Basophils 0.4 0.0 - 1.0 11/02/2017 [facility] HEMATOLOGY Eosinophils 0.4 0.0 - 4.0 11/02/2017 [facility] HEMATOLOGY Segs-Bands # 7.4 1.5 - 8.1 11/02/2017 [facility] URINE AND STOOL UA Color Anastasia 11/02/2017 [facility] URINE AND STOOL UA WBC Cast 4 <=0 /LPF 11/02/2017 [facility] URINE AND STOOL UA Sq Epi Moderate /LPF Few /LPF 11/02/2017 [facility] URINE AND STOOL UA Mucus Many /LPF None Seen /LPF 11/02/2017 [facility] URINE AND STOOL UA Hyal Cast 86 0 - 2 11/02/2017 [facility] URINE AND STOOL UA RBC 5 0 - 2 11/02/2017 [facility] URINE AND STOOL UA WBC 17 0 - 5 11/02/2017 [facility] URINE AND STOOL UA Leuk Est Negative (11/01/17 10:56 PM) Negative 11/02/2017 [facility] URINE AND STOOL UA Nitrite Negative (11/01/17 10:56 PM) Negative 11/02/2017 [facility] URINE AND STOOL UA Urobilinogen 2.0 0.1 - 1.0 11/02/2017 [facility] URINE AND STOOL UA Blood Negative (11/01/17 10:56 PM) Negative 11/02/2017 [facility] URINE AND STOOL UA Bili Small *ABN* (11/01/17 10:56 PM) Negative 11/02/2017 [facility] URINE AND STOOL UA Glucose 50 mg/dL Negative mg/dL 11/02/2017 [facility] URINE AND STOOL UA pH 6.0 5.0 - 8.0 11/02/2017 [facility] URINE AND STOOL UA Spec Grav 1.027 <=1.030 11/02/2017 [facility] URINE AND STOOL UA Ketones 80 mg/dL Negative mg/dL 11/02/2017 [facility] URINE AND STOOL UA Protein 100 mg/dL Negative mg/dL 11/02/2017 [facility] URINE AND STOOL UA Turbidity Marked *ABN* (11/01/17 10:56 PM) Clear 11/02/2017 [facility] Culture: Urine <10,000 CFU/mL Skin Digna 11/02/2017 [facility] CHEM PANEL eGFR 79 10/13/2017 Result Comment: The eGFR is calculated using the CKD-EPI formula. In most young, healthy individuals the eGFR will be >90 mL/min/1.73m2. The eGFR declines with age. An eGFR of 60-89 may be normal in some populations, particularly the elderly, for whom the CKD-EPI formula has not been extensively validated. Use of the eGFR is not recommended in the following populations:

Individuals with unstable creatinine concentrations, including patients and those with serious co-morbid conditions.

Patients with extremes in muscle mass or diet.

The data above are obtained from the National Kidney Disease Education Program (NKDEP) which additionally recommends that when the eGFR is used in patients with extremes of body mass index for purposes of drug dosing, the eGFR should be multiplied by the estimated BMI. [facility] CHEM PANEL Glucose Lvl 75 70 - 99 10/13/2017 [facility] CHEM PANEL Sodium Lvl 140 135 - 145 10/13/2017 [facility] CHEM PANEL BUN 10 7 - 22 10/13/2017 [facility] CHEM PANEL Creatinine Lvl 1.17 0.50 - 1.40 10/13/2017 [facility] CHEM PANEL Chloride Lvl 104 95 - 109 10/13/2017 [facility] CHEM PANEL CO2 26 24 - 32 10/13/2017 [facility] CHEM PANEL Potassium Lvl 3.4 3.5 - 5.1 10/13/2017 [facility] CHEM PANEL Calcium Lvl 9.0 8.5 - 10.5 10/13/2017 [facility] CHEM PANEL AGAP 13.4 10.0 - 20.0 10/13/2017 [facility] CHEM PANEL Phosphorus 4.2 2.5 - 4.5 10/12/2017 [facility] CHEM PANEL Magnesium Lvl 2.6 1.8 - 2.4 10/12/2017 [facility] CHEM PANEL eGFR 52 10/12/2017 Result Comment: The eGFR is calculated using the CKD-EPI formula. In most young, healthy individuals the eGFR will be >90 mL/min/1.73m2. The eGFR declines with age. An eGFR of 60-89 may be normal in some populations, particularly the elderly, for whom the CKD-EPI formula has not been extensively validated. Use of the eGFR is not recommended in the following populations:

Individuals with unstable creatinine concentrations, including patients and those with serious co-morbid conditions.

Patients with extremes in muscle mass or diet.

The data above are obtained from the National Kidney Disease Education Program (NKDEP) which additionally recommends that when the eGFR is used in patients with extremes of body mass index for purposes of drug dosing, the eGFR should be multiplied by the estimated BMI. [facility] CHEM PANEL Alk Phos 60 39 - 136 10/12/2017 [facility] CHEM PANEL Bili Total 0.7 0.2 - 1.3 10/12/2017 [facility] CHEM PANEL Globulin 4.4 2.7 - 4.2 10/12/2017 [facility] CHEM PANEL ALT 48 0 - 65 10/12/2017 [facility] CHEM PANEL AST 21 0 - 37 10/12/2017 [facility] CHEM PANEL A/G Ratio 0.9 0.7 - 1.6 10/12/2017 [facility] CHEM PANEL Total Protein 8.2 6.4 - 8.4 10/12/2017 [facility] CHEM PANEL Chloride Lvl 103 95 - 109 10/12/2017 [facility] CHEM PANEL Potassium Lvl 3.7 3.5 - 5.1 10/12/2017 [facility] CHEM PANEL Calcium Lvl 8.3 8.5 - 10.5 10/12/2017 [facility] CHEM PANEL B/C Ratio 13 6 - 25 10/12/2017 [facility] CHEM PANEL Sodium Lvl 141 135 - 145 10/12/2017 [facility] CHEM PANEL Creatinine Lvl 1.65 0.50 - 1.40 10/12/2017 [facility] CHEM PANEL BUN 21 7 - 22 10/12/2017 [facility] CHEM PANEL Glucose Lvl 69 70 - 99 10/12/2017 [facility] CHEM PANEL Albumin Lvl 3.8 3.5 - 5.0 10/12/2017 [facility] CHEM PANEL AGAP 13.7 10.0 - 20.0 10/12/2017 [facility] CHEM PANEL CO2 28 24 - 32 10/12/2017 [facility] ENDOCRINOLOGY S Preg Negative *NA* (10/12/17 5:50 AM) Negative 10/12/2017 [facility] HEMATOLOGY Eosinophils # 0.2 0.0 - 0.5 10/12/2017 [facility] HEMATOLOGY Basophils # 0.1 0.0 - 0.2 10/12/2017 [facility] HEMATOLOGY Monocytes # 0.7 0.0 - 0.8 10/12/2017 [facility] HEMATOLOGY Basophils 1.7 0.0 - 1.0 10/12/2017 [facility] HEMATOLOGY Lymphocytes # 2.7 1.0 - 5.5 10/12/2017 [facility] Segs-Bands # 3.5 1.5 - 8.1 10/12/2017 [facility] Monocytes 9.8 2.0 - 12.0 10/12/2017 [facility] Eosinophils 2.8 0.0 - 4.0 10/12/2017 [facility] HEMATOLOGY Segs 49.0 45.0 - 75.0 10/12/2017 [facility] Lymphocytes 36.7 20.0 - 40.0 10/12/2017 [facility] Hct 39.6 42.0 - 54.0 10/12/2017 [facility] MCV 84.5 80.0 - 94.0 10/12/2017 [facility] MCH 27.9 27.0 - 31.0 10/12/2017 [facility] RDW 14.0 11.5 - 14.5 10/12/2017 [facility] MPV 8.0 7.4 - 10.4 10/12/2017 [facility] HEMATOLOGY Platelet 395 133 - 450 10/12/2017 [facility] MCHC 33.0 32.0 - 36.0 10/12/2017 [facility] WBC 7.2 3.7 - 10.4 10/12/2017 [facility] RBC 4.69 4.70 - 6.10 10/12/2017 [facility] Hgb 13.1 14.0 - 18.0 10/12/2017 [facility] URINE AND STOOL UA Urobilinogen <=1.0 mg/dL 0.1 - 1.0 10/12/2017 [facility] URINE AND STOOL UA Mucus Few /LPF None Seen /LPF 10/12/2017 [facility] URINE AND STOOL UA Hyal Cast 8 0 - 2 10/12/2017 [facility] URINE AND STOOL UA Ketones 80 mg/dL Negative mg/dL 10/12/2017 [facility] URINE AND STOOL UA Bili Negative *NA* (10/12/17 3:02 AM) Negative 10/12/2017 [facility] URINE AND STOOL UA Blood Negative (10/12/17 3:02 AM) Negative 10/12/2017 [facility] URINE AND STOOL UA Nitrite Negative (10/12/17 3:02 AM) Negative 10/12/2017 [facility] URINE AND STOOL UA Glucose Negative mg/dL Negative mg/dL 10/12/2017 [facility] URINE AND STOOL UA Leuk Est Negative (10/12/17 3:02 AM) Negative 10/12/2017 [facility] URINE AND STOOL UA RBC <1 0 - 2 10/12/2017 [facility] URINE AND STOOL UA Sq Epi Occasional /LPF Few /LPF 10/12/2017 [facility] URINE AND STOOL UA WBC 2 0 - 5 10/12/2017 [facility] URINE AND STOOL UA Protein 30 mg/dL Negative mg/dL 10/12/2017 [facility] URINE AND STOOL UA Color Yellow *NA* (10/12/17 3:02 AM) Yellow 10/12/2017 [facility] URINE AND STOOL UA Turbidity Slight *ABN* (10/12/17 3:02 AM) Clear 10/12/2017 [facility] URINE AND STOOL UA Spec Grav 1.020 <=1.030 10/12/2017 [facility] URINE AND STOOL UA pH 5.0 5.0 - 8.0 10/12/2017 [facility] CARDIAC ENZYMES CK MB Index <0.3 0.0 - 2.5 10/11/2017 [facility] CARDIAC ENZYMES Total CK 198 12 - 191 10/11/2017 [facility] CARDIAC ENZYMES CK MB <0.5 0.5 - 3.6 10/11/2017 [facility] CARDIAC ENZYMES Troponin-I <0.02 0.00 - 0.40 10/11/2017 [facility] CHEM PANEL Lipase Lvl 213 73 - 393 10/11/2017 [facility] CHEM PANEL Phosphorus 5.1 2.5 - 4.5 10/11/2017 [facility] CHEM PANEL Magnesium Lvl 3.0 1.8 - 2.4 10/11/2017 [facility] CHEM PANEL VITAMIN B1 (THIAMINE) WHOLE BLOOD 141.8 66.5 - 200.0 10/11/2017 Result Comment:
This test was developed and its performance characteristics
determined by [facility]. It has not been cleared or
approved by the Food and Drug Administration.
[facility] At[facility]
[address], [place] [id number]
Tapan Merritt MD Ph:[phone] [facility] CHEM PANEL eGFR 24 10/11/2017 Result Comment: The eGFR is calculated using the CKD-EPI formula. In most young, healthy individuals the eGFR will be >90 mL/min/1.73m2. The eGFR declines with age. An eGFR of 60-89 may be normal in some populations, particularly the elderly, for whom the CKD-EPI formula has not been extensively validated. Use of the eGFR is not recommended in the following populations:

Individuals with unstable creatinine concentrations, including patients and those with serious co-morbid conditions.

Patients with extremes in muscle mass or diet.

The data above are obtained from the National Kidney Disease Education Program (NKDEP) which additionally recommends that when the eGFR is used in patients with extremes of body mass index for purposes of drug dosing, the eGFR should be multiplied by the estimated BMI. [facility] CHEM PANEL Potassium Lvl 3.9 3.5 - 5.1 10/11/2017 [facility] CHEM PANEL CO2 24 24 - 32 10/11/2017 [facility] CHEM PANEL Chloride Lvl 98 95 - 109 10/11/2017 [facility] CHEM PANEL Sodium Lvl 138 135 - 145 10/11/2017 [facility] CHEM PANEL Creatinine Lvl 3.10 0.50 - 1.40 10/11/2017 [facility] CHEM PANEL BUN 27 7 - 22 10/11/2017 [facility] CHEM PANEL Glucose Lvl 94 70 - 99 10/11/2017 [facility] CHEM PANEL Alk Phos 68 39 - 136 10/11/2017 [facility] CHEM PANEL AGAP 19.9 10.0 - 20.0 10/11/2017 [facility] CHEM PANEL Bili Total 0.8 0.2 - 1.3 10/11/2017 [facility] CHEM PANEL AST 24 0 - 37 10/11/2017 [facility] CHEM PANEL Total Protein 9.3 6.4 - 8.4 10/11/2017 [facility] CHEM PANEL ALT 56 0 - 65 10/11/2017 [facility] CHEM PANEL Albumin Lvl 4.5 3.5 - 5.0 10/11/2017 [facility] CHEM PANEL Calcium Lvl 9.1 8.5 - 10.5 10/11/2017 [facility] CHEM PANEL A/G Ratio 0.9 0.7 - 1.6 10/11/2017 [facility] CHEM PANEL Globulin 4.8 2.7 - 4.2 10/11/2017 [facility] CHEM PANEL B/C Ratio 9 6 - 25 10/11/2017 [facility] HEMATOLOGY RDW 14.2 11.5 - 14.5 10/11/2017 [facility] HEMATOLOGY Platelet 466 133 - 450 10/11/2017 [facility] MCHC 33.0 32.0 - 36.0 10/11/2017 [facility] MCH 27.7 27.0 - 31.0 10/11/2017 [facility] MPV 8.2 7.4 - 10.4 10/11/2017 [facility] Hgb 14.1 14.0 - 18.0 10/11/2017 [facility] HEMATOLOGY WBC 8.0 3.7 - 10.4 10/11/2017 [facility] HEMATOLOGY RBC 5.09 4.70 - 6.10 10/11/2017 [facility] HEMATOLOGY Hct 42.7 42.0 - 54.0 10/11/2017 [facility] HEMATOLOGY MCV 83.8 80.0 - 94.0 10/11/2017 [facility] HEMATOLOGY Lymphocytes # 2.4 1.0 - 5.5 10/11/2017 [facility] HEMATOLOGY Monocytes # 0.7 0.0 - 0.8 10/11/2017 [facility] HEMATOLOGY Basophils 1.0 0.0 - 1.0 10/11/2017 [facility] HEMATOLOGY Segs-Bands # 4.7 1.5 - 8.1 10/11/2017 [facility] HEMATOLOGY Segs 58.9 45.0 - 75.0 10/11/2017 [facility] HEMATOLOGY Lymphocytes 30.5 20.0 - 40.0 10/11/2017 [facility] HEMATOLOGY Eosinophils 0.9 0.0 - 4.0 10/11/2017 [facility] HEMATOLOGY Monocytes 8.7 2.0 - 12.0 10/11/2017 [facility] HEMATOLOGY Eosinophils # 0.1 0.0 - 0.5 10/11/2017 [facility] HEMATOLOGY Basophils # 0.1 0.0 - 0.2 10/11/2017 [facility] ELECTROLYTES AGAP 13.8 10.0 - 20.0 10/01/2017 [facility] ELECTROLYTES eGFR 89 10/01/2017 Result Comment: The eGFR is calculated using the CKD-EPI formula. In most young, healthy individuals the eGFR will be >90 mL/min/1.73m2. The eGFR declines with age. An eGFR of 60-89 may be normal in some populations, particularly the elderly, for whom the CKD-EPI formula has not been extensively validated. Use of the eGFR is not recommended in the following populations:

Individuals with unstable creatinine concentrations, including patients and those with serious co-morbid conditions.

Patients with extremes in muscle mass or diet.

The data above are obtained from the National Kidney Disease Education Program (NKDEP) which additionally recommends that when the eGFR is used in patients with extremes of body mass index for purposes of drug dosing, the eGFR should be multiplied by the estimated BMI. [facility] ELECTROLYTES BUN 8 7 - 22 10/01/2017 [facility] ELECTROLYTES Glucose Lvl 108 70 - 99 10/01/2017 [facility] ELECTROLYTES Creatinine Lvl 1.06 0.50 - 1.40 10/01/2017 [facility] ELECTROLYTES Chloride Lvl 101 95 - 109 10/01/2017 [facility] ELECTROLYTES CO2 24 24 - 32 10/01/2017 [facility] ELECTROLYTES Sodium Lvl 135 135 - 145 10/01/2017 [facility] ELECTROLYTES Potassium Lvl 3.8 3.5 - 5.1 10/01/2017 [facility] ELECTROLYTES Calcium Lvl 8.9 8.5 - 10.5 10/01/2017 [facility] HEMATOLOGY WBC 12.9 3.7 - 10.4 10/01/2017 [facility] RBC 4.75 4.70 - 6.10 10/01/2017 [facility] Hct 40.3 42.0 - 54.0 10/01/2017 [facility] Hgb 13.2 14.0 - 18.0 10/01/2017 [facility] MCH 27.7 27.0 - 31.0 10/01/2017 [facility] Platelet 358 133 - 450 10/01/2017 [facility] MPV 8.2 7.4 - 10.4 10/01/2017 [facility] MCHC 32.7 32.0 - 36.0 10/01/2017 [facility] HEMATOLOGY RDW 14.0 11.5 - 14.5 10/01/2017 [facility] HEMATOLOGY MCV 84.7 80.0 - 94.0 10/01/2017 [facility] HEMATOLOGY Monocytes # 0.8 0.0 - 0.8 10/01/2017 [facility] HEMATOLOGY Lymphocytes # 1.6 1.0 - 5.5 10/01/2017 [facility] HEMATOLOGY Segs-Bands # 10.4 1.5 - 8.1 10/01/2017 [facility] HEMATOLOGY Segs 81.0 45.0 - 75.0 10/01/2017 [facility] HEMATOLOGY Basophils # 0.1 0.0 - 0.2 10/01/2017 [facility] HEMATOLOGY Basophils 0.5 0.0 - 1.0 10/01/2017 [facility] HEMATOLOGY Monocytes 6.0 2.0 - 12.0 10/01/2017 [facility] Lymphocytes 12.5 20.0 - 40.0 10/01/2017 [facility] ELECTROLYTES AGAP 13.4 10.0 - 20.0 09/30/2017 [facility] eGFR 65 09/30/2017 Result Comment: The eGFR is calculated using the CKD-EPI formula. In most young, healthy individuals the eGFR will be >90 mL/min/1.73m2. The eGFR declines with age. An eGFR of 60-89 may be normal in some populations, particularly the elderly, for whom the CKD-EPI formula has not been extensively validated. Use of the eGFR is not recommended in the following populations:

Individuals with unstable creatinine concentrations, including patients and those with serious co-morbid conditions.

Patients with extremes in muscle mass or diet.

The data above are obtained from the National Kidney Disease Education Program (NKDEP) which additionally recommends that when the eGFR is used in patients with extremes of body mass index for purposes of drug dosing, the eGFR should be multiplied by the estimated BMI. [facility] ELECTROLYTES CO2 26 24 - 32 09/30/2017 [facility] ELECTROLYTES Calcium Lvl 8.8 8.5 - 10.5 09/30/2017 [facility] ELECTROLYTES Potassium Lvl 4.4 3.5 - 5.1 09/30/2017 [facility] ELECTROLYTES Sodium Lvl 135 135 - 145 09/30/2017 [facility] ELECTROLYTES Chloride Lvl 100 95 - 109 09/30/2017 [facility] ELECTROLYTES Creatinine Lvl 1.38 0.50 - 1.40 09/30/2017 [facility] ELECTROLYTES BUN 13 7 - 22 09/30/2017 [facility] ELECTROLYTES Glucose Lvl 146 70 - 99 09/30/2017 [facility] HEMATOLOGY Basophils # 0.1 0.0 - 0.2 09/30/2017 [facility] HEMATOLOGY Segs-Bands # 14.5 1.5 - 8.1 09/30/2017 [facility] HEMATOLOGY Basophils 0.6 0.0 - 1.0 09/30/2017 [facility] HEMATOLOGY Lymphocytes # 0.9 1.0 - 5.5 09/30/2017 [facility] Monocytes # 0.6 0.0 - 0.8 09/30/2017 [facility] Monocytes 3.5 2.0 - 12.0 09/30/2017 [facility] HEMATOLOGY Eosinophils 0.1 0.0 - 4.0 09/30/2017 [facility] Lymphocytes 5.8 20.0 - 40.0 09/30/2017 [facility] Segs 90.0 45.0 - 75.0 09/30/2017 [facility] MCH 27.9 27.0 - 31.0 09/30/2017 [facility] MCHC 33.0 32.0 - 36.0 09/30/2017 [facility] RDW 14.1 11.5 - 14.5 09/30/2017 [facility] Platelet 338 133 - 450 09/30/2017 [facility] MPV 8.0 7.4 - 10.4 09/30/2017 [facility] WBC 16.0 3.7 - 10.4 09/30/2017 [facility] RBC 4.91 4.70 - 6.10 09/30/2017 [facility] Hgb 13.7 14.0 - 18.0 09/30/2017 [facility] Hct 41.5 42.0 - 54.0 09/30/2017 [facility] MCV 84.5 80.0 - 94.0 09/30/2017 [facility] BLOOD BANK RESULTS Antibody Scrn Negative (09/25/17 12:35 PM) 09/25/2017 [facility] BLOOD BANK RESULTS ABO/Rh O POS 09/25/2017 [facility] ELECTROLYTES AGAP 14.1 10.0 - 20.0 09/25/2017 [facility] ELECTROLYTES Globulin 4.0 2.7 - 4.2 09/25/2017 [facility] ELECTROLYTES B/C Ratio 8 6 - 25 09/25/2017 [facility] ELECTROLYTES A/G Ratio 1.0 0.7 - 1.6 09/25/2017 [facility] ELECTROLYTES eGFR 85 09/25/2017 Result Comment: The eGFR is calculated using the CKD-EPI formula. In most young, healthy individuals the eGFR will be >90 mL/min/1.73m2. The eGFR declines with age. An eGFR of 60-89 may be normal in some populations, particularly the elderly, for whom the CKD-EPI formula has not been extensively validated. Use of the eGFR is not recommended in the following populations:

Individuals with unstable creatinine concentrations, including patients and those with serious co-morbid conditions.

Patients with extremes in muscle mass or diet.

The data above are obtained from the National Kidney Disease Education Program (NKDEP) which additionally recommends that when the eGFR is used in patients with extremes of body mass index for purposes of drug dosing, the eGFR should be multiplied by the estimated BMI. [facility] ELECTROLYTES Bili Total 0.4 0.2 - 1.3 09/25/2017 [facility] ELECTROLYTES AST 13 0 - 37 09/25/2017 [facility] ELECTROLYTES ALT 23 0 - 65 09/25/2017 [facility] ELECTROLYTES Alk Phos 60 39 - 136 09/25/2017 [facility] ELECTROLYTES Albumin Lvl 4.1 3.5 - 5.0 09/25/2017 [facility] ELECTROLYTES Total Protein 8.1 6.4 - 8.4 09/25/2017 [facility] ELECTROLYTES Calcium Lvl 8.8 8.5 - 10.5 09/25/2017 [facility] ELECTROLYTES Chloride Lvl 102 95 - 109 09/25/2017 [facility] ELECTROLYTES CO2 28 24 - 32 09/25/2017 [facility] ELECTROLYTES BUN 9 7 - 22 09/25/2017 [facility] ELECTROLYTES Glucose Lvl 94 70 - 99 09/25/2017 [facility] ELECTROLYTES Creatinine Lvl 1.10 0.50 - 1.40 09/25/2017 [facility] ELECTROLYTES Sodium Lvl 140 135 - 145 09/25/2017 [facility] ELECTROLYTES Potassium Lvl 4.1 3.5 - 5.1 09/25/2017 [facility] HEMATOLOGY MPV 7.9 7.4 - 10.4 09/25/2017 [facility] HEMATOLOGY WBC 4.9 3.7 - 10.4 09/25/2017 [facility] MCH 28.3 27.0 - 31.0 09/25/2017 [facility] MCHC 33.8 32.0 - 36.0 09/25/2017 [facility] RDW 14.2 11.5 - 14.5 09/25/2017 [facility] Platelet 341 133 - 450 09/25/2017 [facility] Hgb 13.6 14.0 - 18.0 09/25/2017 [facility] RBC 4.79 4.70 - 6.10 09/25/2017 [facility] MCV 83.7 80.0 - 94.0 09/25/2017 [facility] Hct 40.1 42.0 - 54.0 09/25/2017 [facility] Basophils # 0.1 0.0 - 0.2 09/25/2017 [facility] Eosinophils # 0.2 0.0 - 0.5 09/25/2017 [facility] Monocytes # 0.5 0.0 - 0.8 09/25/2017 [facility] Eosinophils 5.0 0.0 - 4.0 09/25/2017 [facility] Monocytes 9.3 2.0 - 12.0 09/25/2017 [facility] Lymphocytes # 2.2 1.0 - 5.5 09/25/2017 [facility] Basophils 1.2 0.0 - 1.0 09/25/2017 [facility] Segs-Bands # 1.9 1.5 - 8.1 09/25/2017 [facility] Lymphocytes 44.9 20.0 - 40.0 09/25/2017 [facility] Segs 39.6 45.0 - 75.0 09/25/2017 [facility] SPECIAL CHEMISTRY Hgb A1C 6.4 <=5.6 % 09/25/2017 [facility] Pathology Reports No Data Provided for This Section Diagnostic Reports Report Value Date Source Abdomen w/wo contrast MRI AP Patient Name: JUAN ARVIZU : 1980; Age: 37 years y/o Male MR: [id number] Study: Abdomen w/wo contrast MRI 05/01/2018 4:50 PM CDT CLINICAL INDICATION: K76.9 Liver disease, unspecified - LIVER LESION. COMPARISON: CT on 04/16/2018 TECHNIQUE: Multiplanar and multisequence MR imaging of the abdomen with and without IV contrast. IV contrast: 17 cc of MultiHance FINDINGS: Liver: Normal liver contour and signal. No focal hepatic lesion. Gallbladder: Unremarkable. Bile ducts: No ductal dilatation or choledocholithiasis. Spleen: Normal in size and signal. Pancreas: No mass or ductal dilatation. Adrenals: Tiny left adrenal adenoma. Kidneys: No hydronephrosis or focal lesion. Peritoneum/retroperitoneum: No significant ascites. Vasculature: The visualized aorta and IVC are unremarkable. Lymph nodes: No significant lymphadenopathy. Additional findings: Trace bilateral pleural effusions. Postoperative changes of the stomach related to gastric sleeve. IMPRESSION: Trace bilateral pleural effusions. Otherwise, unremarkable MR imaging of the abdomen. No focal hepatic lesion. The subcapsular hypodense lesions within the liver seen on CT from 04/16/2018 are most likely related to transient perfusion anomalies. 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 50 mL Omnipaque oral contrast. Sagittal and coronal reformats. DL 1636 CT imaging performed at this location utilizes radiation dose optimization techniques which include one or more of the following: -Automated exposure control -Adjustment of the mA and/or kV according to patient size -Use of iterative reconstruction technique FINDINGS: GI TRACT: Stable sleeve gastrectomy. Bowel pattern otherwise appears unremarkable. No bowel obstruction. Appendicoliths without appendicitis. SOLID ORGANS: Mild fatty change of the liver; two triangular low-attenuation foci in the periphery of the right hepatic lobe and one in the dome measure up to 3.5 cm (series 4, images 18-19, 27-28, and 39-45). Mild nodularity of the adrenal glands may reflect small adenomas. The gallbladder, spleen, kidneys, and pancreas are unremarkable. The bladder is underdistended. PERITONEUM AND RETROPERITONEUM: No bulky lymph nodes. No free fluid. LOWER CHEST: New mild airspace disease right lung base. New tiny pleural effusion on the right. BONES: Mild scoliosis. OTHER: Generalized skin thickening most pronounced anterior abdomen. IMPRESSION: 1. Mild fatty change of the liver. Three lesions in the liver are indeterminate, may reflect vascular shunts versus hemangiomas or other lesion; infarcts are considered unlikely. An MRI abdomen with liver protocol is advised to further evaluate. 2. New mild airspace disease right lung base may reflect dependent atelectasis or pneumonia. New tiny pleural effusion on the right. 3. Stable sleeve gastrectomy. 4. Generalized skin thickening, correlate for cellulitis. SL: [id number] 04/16/2018 [facility] Abdomen AP DX Patient Name: REYNA TANG : 1980 Age: 37 years, Male MR: [id number] Study: Abdomen AP DX 02/10/2018 4:09 PM CDT Examination: Abdomen, one view Indication: Nephrolithiasis. Clinical information: - N20.0 Calculus of kidney. Comparison: CT abdomen and pelvis 11/01/2017. Findings: Lines/tubes: None. Bowel: No air-fluid levels. No pneumoperitoneum. Moderate amount of retained feces and air are noted in the colon and rectum. Calcifications: No calcifications project over the renal shadows, expected course of the ureters bilaterally, and urinary bladder. Soft tissues: Normal. Bones: No acute osseous abnormality. IMPRESSION: No acute radiographic abnormality. SL: [id number] 02/10/2018 [facility] [address] CT ABDOMEN AND PELVIS WITHOUT CONTRAST Clinical Indication: - Left-sided abdominal pain. Comparison: None. TECHNIQUE: Helical imaging was performed diaphragm through the symphysis with multiplanar reconstructions. Images reviewed in 3 planes. IV CONTRAST: None. GI CONTRAST: None. DLP: 1251 mGy-cm FINDINGS: This examination is limited for the evaluation of solid organs and vascular structures due to lack of intravenous contrast. LOWER CHEST: The lung bases are clear. No pleural abnormality. Included mediastinum is grossly normal. LIVER: Normal. GALLBLADDER: Normal appearance of the gallbladder (non calcified stones may not be visible on CT). SPLEEN: Normal appearance of the spleen. PANCREAS: Normal. ADRENALS: Normal appearance of each adrenal. KIDNEYS: Punctate calculus at the left UV junction on axial image 103 of series 2 with mild left hydronephrosis and minimal perinephric edema. No other urinary calculus is apparent. BOWEL, MESENTERY: Evidence of previous gastric surgery. No evidence of acute bowel pathology. Mild articular changes noted within the sigmoid colon. APPENDIX: Normal appearance of the appendix. PERITONEUM: No extraluminal gas or significant free fluid. RETROPERITONEUM: No inflammation, mass or adenopathy. Normal appearance of the aorta. ABDOMINAL WALL: No significant abnormality. PELVIS: The urinary bladder is decompressed. No mass, inflammation, lymphadenopathy or significant free fluid. No inguinal abnormality. MUSCULOSKELETAL: No significant skeletal abnormality is apparent. IMPRESSION: 1. Punctate calculus at the left UV junction with mild hydroureteronephrosis. SL: DEBORAH 11/01/2017 [facility] Upper GI Series w water soluble DX Upper GI Series w water soluble DX CLINICAL HISTORY: - post op # 11 Gastric sleeve, r/o leak. Status post gastric sleeve, evaluate for leaks and obstruction TECHNIQUE: Water-soluble contrast was administered per os. Fluoroscopic and overhead images of the GE junction were subsequently performed. FINDINGS: There is no significant delay in passage of contrast from the esophagus to the stomach. The tubular appearance of the stomach is consistent with patient's history of gastric sleeve. There is no evidence for obstruction. No leakage of contrast outside gastric lumen is noted. IMPRESSION: Negative study. No fluoroscopic evidence for obstruction or leak. SL: [id number] 10/12/2017 [facility] Abdomen/Pelvis wo IV contrast CT Patient Name: REYNA TANG : 1980; Age: 37 years y/o Male MR: [id number] Study: Abdomen/Pelvis wo IV contrast CT 10/11/2017 5:25 PM CDT Referring physician:Patrice Mansfield Clinical Indication: - upper abd pain, vomiting, 10d post op gastric sleeve; Comparison: None TECHNIQUE: Sequential trans-axial images were obtained with a multi-detector helical CT without administration of IV contrast. Coronal and sagittal reconstructions were obtained. Total exam DLP 979 FINDINGS: LUNG BASES: Lung bases are clear without significant pleural effusion bilaterally. ABDOMINAL ORGANS: No focal liver or splenic abnormality. No pelvocaliectasis or ureterectasis bilaterally. Punctate 2 mm nonobstructive left renal upper pole calculus. The adrenals, pancreas and gallbladder are unremarkable. PERITONEUM AND RETROPERITONEUM: No abdominal or pelvic lymphadenopathy. No free intraperitoneal air. No abnormal fluid collection identified in the abdomen or pelvis. The abdominal aorta is unremarkable. BOWEL: No acute bowel abnormality identified in the abdomen or pelvis. The appendix is unremarkable. Status post gastroplasty. No pathologic fluid or inflammation is noted regionally. PELVIS: No pelvic mass. Bladder is unremarkable. BONES: There are no definite significant osseous abnormalities seen. IMPRESSION: Status post gastroplasty. No pathologic fluid, inflammation or other acute findings. Punctate nonobstructive left renal calculus. No other significant acute findings. SL: JRICHARDPC 10/11/2017 [facility] Abdomen acute series w chest 1 view DX Clinical Indication: - vomiting, 10d post op gastric sleeve. Comparison: None FINDINGS: Frontal view of the chest was obtained. The heart is normal in size. The lungs are clear. Supine and upright views of the abdomen were obtained. Bowel gas pattern is nonobstructive. There is a moderate stool burden. There is no pneumoperitoneum. Suture material and surgical clips are seen in the left upper quadrant compatible with provided history of sleeve gastrectomy. No acute osseous abnormality. IMPRESSION: 1. No acute cardiopulmonary abnormality 2. No appreciable acute abdominal abnormality SL: NOVAOBERT 10/11/2017 [facility] Chest 2 views DX Patient Name: REYNA TANG : 1980; Age: 36 years y/o Male MR: [id number] * CHEST, 2 views HISTORY: - Dyspnea COMPARISON: 10/17/2016. A study of 10/07/2014 was also reviewed. TECHNIQUE: Frontal and lateral radiographs of the chest were obtained. FINDINGS: There is no evidence of an active or acute process within the chest. The lungs are clear. There are no pleural effusions. The heart and pulmonary vasculature are within normal limits. The regional skeleton is unremarkable. IMPRESSION: 1. No active disease. SL: [id number] 07/11/2017 [facility] Spine thoracic 2 views DX EXAM: XR THORACIC SPINE 2 VIEWS EXAM: XR LUMBAR SPINE 2 VIEWS DATE: 05/20/2017 3:14 PM CDT INDICATION: - Z87.2 Personal history of diseases of the skin and subcutaneous tissue COMPARISON: None TECHNIQUE: AP and lateral radiographs of the thoracic and lumbar spine. DISCUSSION: Visualization of the upper thoracic spinal lateral radiograph. Satisfactory alignment of the thoracic and lumbar spine. 5 lumbar type vertebral bodies. Lumbar vertebral body and disc heights are maintained. Mild facet arthropathy of the lower lumbar spine. No enthesophyte formation. Mediastinal contours are normal. IMPRESSION: 1. Mild facet arthropathy of the lower lumbar spine. 2. No other abnormality identified. 05/20/2017 [facility] Hand 2 views Bilateral DX EXAM: XR BILATERAL HAND 2 VIEWS DATE: 05/20/2017 3:14 PM CDT INDICATION: - Z87.2 Personal history of diseases of the skin and subcutaneous tissue COMPARISON: None TECHNIQUE: PA and lateral radiographs of the hands. Laterality: Bilateral FINDINGS: No acute fracture or malalignment is identified. Joint spaces and bone mineral density are preserved. No erosions, osteophytes, or cysts. No soft tissue abnormality is identified. IMPRESSION: Normal exam of the bilateral hands. 05/20/2017 [facility] Spine cervical 2 or 3 view DX EXAM: XR CERVICAL SPINE 3 VIEWS DATE: 05/20/2017 3:13 PM CDT INDICATION: - Z87.2 Personal history of diseases of the skin and subcutaneous tissue COMPARISON: None TECHNIQUE: AP, open-mouth odontoid and lateral views of the cervical spine FINDINGS: There is loss of cervical lordosis with minimal reversal of curvature centered at C4-5. Mild atlantodental degenerative changes are present. Vertebral body heights, disk heights and alignment are overall preserved. No prevertebral or paraspinous soft tissue abnormality is identified. IMPRESSION: 1. Loss of cervical lordosis may be due to muscle spasm/pain. 2. Mild atlantodental degenerative changes. 05/20/2017 [facility] Spine lumbar 2 or 3 views DX EXAM: XR THORACIC SPINE 2 VIEWS EXAM: XR LUMBAR SPINE 2 VIEWS DATE: 05/20/2017 3:14 PM CDT INDICATION: - Z87.2 Personal history of diseases of the skin and subcutaneous tissue COMPARISON: None TECHNIQUE: AP and lateral radiographs of the thoracic and lumbar spine. DISCUSSION: Visualization of the upper thoracic spinal lateral radiograph. Satisfactory alignment of the thoracic and lumbar spine. 5 lumbar type vertebral bodies. Lumbar vertebral body and disc heights are maintained. Mild facet arthropathy of the lower lumbar spine. No enthesophyte formation. Mediastinal contours are normal. IMPRESSION: 1. Mild facet arthropathy of the lower lumbar spine. 2. No other abnormality identified. 05/20/2017 [facility] Knee 1-2 Views Bilateral DX EXAM: XR BILATERAL KNEE 2 VIEWS DATE: 05/20/2017 3:14 PM CDT INDICATION: - Z87.2 Personal history of diseases of the skin and subcutaneous tissue COMPARISON: None TECHNIQUE: Standing AP and lateral radiographs of both knees FINDINGS: No fracture, dislocation or other acute bony abnormality is identified. Joint spaces are preserved in all three compartments. There is no knee joint effusion. No soft tissue abnormality is identified. IMPRESSION: Normal exam of the bilateral knees. 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 TECHNIQUE: Frontal and lateral radiographs of the chest were obtained. FINDINGS: The lungs are clear. There are no pleural effusions. The heart and pulmonary vasculature are within normal limits. The regional skeleton is unremarkable. IMPRESSION: 1. No active disease. SL: [id number] 10/17/2016 [facility] Abdomen complete US Patient Name: REYNA TANG : 1980; Age: 35 years Male MR: [id number] Study: Abdomen complete US 08/06/2016 9:24 AM [facility] APPRENTICE DISPENSING CLINICAL INDICATION: ruq pain ADDITIONAL HISTORY: None COMPARISON: None TECHNIQUE: Grayscale and limited color sonographic evaluation of the abdomen was performed using standard technique. FINDINGS: Liver: The liver demonstrates increased echogenicity and is normal in size, measuring 16.3 cm. No focal liver lesion identified. Gallbladder: Normal appearance of the gallbladder without evidence of stones, wall thickening, or pericholecystic fluid. Biliary: No intra or extrahepatic biliary ductal dilatation. The common bile duct measures 0.4 cm. Pancreas: The visualized aspects of the pancreas are body are unremarkable. Spleen: The spleen is normal in echogenicity and in size, measuring 10.3 cm. Kidney: The right kidney measures 12.1 cm in length. The left kidney measures 12.7 cm in length. Normal renal echogenicity and contour without evidence of hydronephrosis. Aorta and IVC: The visualized portions are unremarkable. No evidence of free fluid. IMPRESSION: Hepatic steatosis. SL: [id number] 08/06/2016 [facility] Spine lumbar wo contrast MRI EXAM: MRI LUMBAR SPINE WITHOUT CONTRAST DATE: 09/27/2015 2:47 PM [facility]ENTICE DISPENSING INDICATION: low back pain COMPARISON: Lumbar spine radiographs from 05/18/2015 TECHNIQUE: Multiplanar, multisequence noncontrast MR imaging of the lumbar spine. IV contrast: None. FINDINGS: Lumbar vertebrae have normal height, alignment, and signal intensity. A few small Schmorl's nodes. Intervertebral discs maintain normal height and signal intensity. No significant disc protrusion or bulge. Conus medullaris terminates at the T12-L1 level. Normal caliber and distribution of nerve roots in the cauda equina. Mild developmentally narrowed caliber of the spinal canal at the L2-L3 level. Mild right L5-S1 facet arthropathy. No significant foraminal stenosis. Incompletely imaged facet arthropathy on the right at T10-T11. Paraspinal soft tissues are unremarkable. IMPRESSION: Mild developmental spinal canal narrowing at the L2-L3 level. No significant degenerative changes, spinal canal or foraminal stenosis. Mild right L5-S1 facet arthropathy. Right T11-T12 facet arthropathy. [facility] 2 views DX EXAM: XR CHEST 2 VIEWS DATE: 09/13/2015 3:03 PM [facility] APPRENTICE DISPENSING INDICATION: L40.9 Psoriasis, unspecified/Z79.899 Other snf (current) drug therapy COMPARISON: 10/07/2014. TECHNIQUE: PA and lateral chest radiographs FINDINGS: The osseous structures appear grossly on markable. Note that the patient's body habitus prevents adequate visualization of the vertebral bodies on the lateral view. The heart size is normal. No mediastinal or hilar masses are present. The lungs are clear, and there are no pleural effusions. IMPRESSION: 1. No acute cardiopulmonary disease. 09/13/2015 [facility] Knee 4+ views bilat DX Bilateral knee series 4 views each: FINDINGS: There is no evidence for fracture, dislocation or any significant effusion on either side. Minimal to mild decrease in joint space height is present in the medial compartment of both knees. No significant osteophyte formation is noted on either side. SL:13 05/18/2015 [facility] Hand 3 views Bilateral DX RIGHT HAND-3 VIEWS HX: M25.50 Pain in unspecified joint / FINDINGS: AP, lateral and oblique views reveal no evidence of fracture, dislocation or radiopaque foreign body. The visualized soft tissues are grossly normal. There is no evidence of bony erosion, demineralization, subluxation or soft tissue calcification. IMPRESSION: Negative study. SL: 12 05/18/2015 [facility] Spine lumbar series DX Lumbar spine series 5 views: FINDINGS: Five non rib-bearing lumbar type vertebrae are identified. The alignment is anatomic and there is no evidence for acute fractures. The vertebral body heights and disc spaces are reasonably well-maintained. The SI joints demonstrate normal morphology. No significant degenerative change is noted. IMPRESSION: Negative lumbar spine. No fractures are evident. SL:13 05/18/2015 [facility] Sacroiliac joints series DX Sacroiliac joints series HX: M25.50 Pain in unspecified joint COMPARISON: NONE FINDINGS: Views of the SI joints reveal some minimal degenerative spurring of the inferior margins of the joints bilaterally. Some minimal sclerosis is present in the iliac bones at the lateral margins of the SI joints on either side. The joints are well defined. The remaining osseous structures are within normal limits. Bowel gas pattern is unremarkable. No unusual calcifications are noted. IMPRESSION: 1. Minimal sclerosis and spurring of the SI joints consistent with some osteoarthropathy. 2. Otherwise negative. SL: 12 05/18/2015 [facility] Consultation Notes No Data Provided for This Section Discharge Summaries No Data Provided for This Section History and Physicals No Data Provided for This Section Vital Signs Vital Sign Value Date Comments Source Respitory Rate 14 11/03/2017 [facility] Temperature Oral (F) 97.7 F 11/03/2017 [facility] Systolic (mm Hg) 144 11/03/2017 [facility] Diastolic (mm Hg) 96 11/03/2017 [facility] Heart Rate 78 11/03/2017 [facility] Systolic (mm Hg) 155 11/03/2017 [facility] Diastolic (mm Hg) 70 11/03/2017 [facility] Temperature Oral (F) 97.8 F 11/03/2017 [facility] Respitory Rate 18 11/03/2017 [facility] Heart Rate 78 11/03/2017 [facility] Temperature Oral (F) 97.9 F 11/03/2017 [facility] Systolic (mm Hg) 151 11/03/2017 [facility] Diastolic (mm Hg) 94 11/03/2017 [facility] Respitory Rate 20 11/03/2017 [facility] Heart Rate 90 11/03/2017 [facility] Height 175.26 cm 11/03/2017 [facility] Weight 118.182 11/03/2017 [facility] BMI Calculated 38.48 11/03/2017 [facility] Systolic (mm Hg) 120 11/02/2017 [facility] Diastolic (mm Hg) 78 11/02/2017 [facility] Respitory Rate 18 11/02/2017 [facility] Temperature Oral (F) 98.0 F 11/02/2017 [facility] Heart Rate 78 11/02/2017 [facility] Height 175.26 cm 11/02/2017 [facility] Systolic (mm Hg) 129 11/02/2017 [facility] Diastolic (mm Hg) 80 11/02/2017 [facility] Temperature Oral (F) 98.2 F 11/02/2017 [facility] Heart Rate 96 11/02/2017 [facility] Respitory Rate 20 11/02/2017 [facility] Weight 118.182 11/02/2017 [facility] BMI Calculated 38.48 11/02/2017 [facility] Systolic (mm Hg) 137 10/14/2017 [facility] Diastolic (mm Hg) 86 10/14/2017 [facility] Heart Rate 76 10/14/2017 [facility] Temperature Oral (F) 98.4 F 10/14/2017 [facility] Systolic (mm Hg) 150 10/14/2017 [facility] Diastolic (mm Hg) 91 10/14/2017 [facility] Temperature Oral (F) 98.1 F 10/14/2017 [facility] Heart Rate 75 10/14/2017 [facility] Temperature Oral (F) 98.1 F 10/14/2017 [facility] Systolic (mm Hg) 151 10/14/2017 [facility] Diastolic (mm Hg) 89 10/14/2017 [facility] Heart Rate 78 10/14/2017 [facility] Respitory Rate 18 10/12/2017 [facility] Respitory Rate 18 10/12/2017 [facility] Respitory Rate 18 10/12/2017 [facility] BMI Calculated 42.17 10/12/2017 [facility] Weight 129.545 10/12/2017 [facility] Height 175.26 cm 10/12/2017 [facility] Weight 129.091 10/11/2017 [facility] BMI Calculated 42.03 10/11/2017 [facility] Height 175.26 cm 10/11/2017 [facility] Respitory Rate 18 10/02/2017 [facility] Respitory Rate 18 10/02/2017 [facility] Heart Rate 83 10/02/2017 [facility] Systolic (mm Hg) 160 10/02/2017 [facility] Diastolic (mm Hg) 91 10/02/2017 [facility] Temperature Oral (F) 98.0 F 10/02/2017 [facility] Systolic (mm Hg) 147 10/02/2017 [facility] Diastolic (mm Hg) 90 10/02/2017 [facility] Temperature Oral (F) 98.4 F 10/02/2017 [facility] Systolic (mm Hg) 158 10/02/2017 [facility] Diastolic (mm Hg) 74 10/02/2017 [facility] Temperature Oral (F) 98.6 F 10/02/2017 [facility] Respitory Rate 16 10/02/2017 [facility] Heart Rate 96 10/02/2017 [facility] Heart Rate 90 10/01/2017 [facility] Height 172.7 cm 09/30/2017 [facility] BMI Calculated 46.22 09/30/2017 [facility] Weight 137.841 09/30/2017 [facility] Weight 137.841 09/30/2017 [facility] BMI Calculated 46.21 09/30/2017 [facility] Height 172.72 cm 09/25/2017 [facility] Respitory Rate 22 02/18/2017 [facility] Systolic (mm Hg) 148 02/18/2017 [facility] Diastolic (mm Hg) 82 02/18/2017 [facility] Respitory Rate 18 02/18/2017 [facility] Systolic (mm Hg) 151 02/18/2017 [facility] Diastolic (mm Hg) 94 02/18/2017 [facility] Systolic (mm Hg) 135 02/18/2017 [facility] Diastolic (mm Hg) 94 02/18/2017 [facility] Respitory Rate 22 02/18/2017 [facility] Heart Rate 77 02/18/2017 [facility] Weight 133.636 02/17/2017 [facility] BMI Calculated 41.11 02/17/2017 [facility] Height 180.3 cm 02/17/2017 [facility] Encounters Location Location Details Encounter Type Encounter Number Reason For Visit Attending Provider ADM Date DC Date Status Source [facility] [place] [facility] [id number] Misty Duque 10/07/2014 10/08/2014 [facility] Outpatient [id number] Mario Mclean 05/18/2015 05/19/2015 [facility]patient [facility] Outpt Diag Services [id number] Misty Duque 09/13/2015 09/14/2015 [facility] Outpatient Imaging [facility] Outpt Diag Services [id number] Lizeth Valencia 09/27/2015 09/28/2015 [facility] Outpatient [id number] Chidi Garcia Jr 08/06/2016 08/07/2016 [facility] Outpatient [id number] ABRAR ISMAIL 08/27/2016 Active [facility] Outpatient [id number] ABRAR ISMAIL 09/25/2016 Active [facility] [place] OP Therapy Patients [id number] Abrar Ismail 10/09/2016 11/08/2016 [facility] Outpatient [id number] Mistyyessy Duque 10/17/2016 10/18/[address] [facility] Recurring [id number] Abrar Ismail 10/29/2016 11/28/2016 [facility] [place] OP Therapy Patients [id number] Abrar Ismail 11/14/2016 12/14/2016 [facility] [place] OP Therapy Patients [id number] Abrar Ismail 12/20/2016 01/19/2017 [facility] Recurring [id number] Abrar Ismail 12/20/2016 01/19/2017 [facility] Outpatient [id number] ABRAR ISMAIL 01/09/2017 Active [facility] [place] OP Therapy Patients [id number] Abrar Ismail 01/31/2017 03/02/2017 [facility] Bedded Outpatient [id number] Abelardo Heath 02/18/2017 02/18/2017 [facility] Outpatient [id number] ABRAR ISMAIL 04/08/2017 Active [facility] Outpatient [id number] ABRAR ISMAIL 05/12/2017 Active [facility] [place] Outpt Diag Services [id number] Jose Rivers 05/20/2017 05/21/2017 [facility] Outpatient [id number] Precious Gary 06/23/2017 06/24/2017 [facility] Outpatient [id number] Precious Gary 07/05/2017 07/05/2017 [facility] Outpatient [id number] Andrew Cruz 07/11/2017 07/12/2017 [facility][Note 2] Phone Message [id number] 08/01/2017 08/03/2017 [facility] [place] OP Therapy Patients [id number] SY ELKINS 09/09/2017 10/09/2017 [facility] Inpatient [id number] Precious Gary 09/30/2017 10/02/2017 [facility] Inpatient [id number] Chaparro Yi 10/11/2017 10/14/2017 [facility] OP Therapy Patients [id number] SY ELKINS 10/30/2017 11/29/2017 [facility] Emergency [id number] Binu Amor 11/02/2017 11/02/2017 [facility] Emergency [id number] Binu Amor 11/03/2017 11/03/2017 [facility] Outpatient [id number] Juan Frederick 02/10/2018 02/11/2018 [facility] Outpatient [id number] Precious Gray 04/16/2018 04/17/2018 [facility] Outpatient [id number] Precious Gary 05/01/2018 05/02/2018 [facility] Departed Emergency Room [id number] ALEM ESTRELLA MD 08/04/2018 08/04/2018 [facility] Procedures Procedure Code Date Perfomer Comments Source Esophagogastroduodenoscopy [id number] 02/18/2017 [facility] Sleeve gastrectomy with duodenal switch [id number] [facility] Assessment and Plan Assessment and Plan Date Source Extracted from:Title: Clinical Document Author: Eugene Sargent MD Date: 10/14/17 Hospitalist discharge note [facility] Eugene Sargent MD SUBJECTIVE: Patient seen and examined, events reviewed Feels much better today and is able to tolerate a liquid diet now. He has been cleared by GI as well as surgery for discharge home on Carafate as well as a PPI and antiemetics. OBJECTIVE: Vitals and Temp: Vitals Tmp(F) Pulse BP RR SpO2 FIO2 10/14 07:00 98.4 76 137/86 -- 96 --- 10/14 03:20 98.1 75 150/91 -- 96 --- 10/13 23:34 98.1 78 151/89 -- 97 --- 10/13 19:51 98.8 82 144/86 -- 99 --- 10/13 14:59 97.8 94 142/90 -- 100 --- 24 Hr Tmax: 98.8F (37.11c) at 10/13 19:51 Vital Signs are the last 5 in the past 48 hours. Input/Output Record In Out Bal 10/14 24hr Tot 50 0 50 10/13 24hr Tot 3111 0 3111 Labs (Last four charted values) WBC 7.2 (OCT 12) 8.0 (OCT 11) Hgb L 13.1 (OCT 12) 14.1 (OCT 11) Hct L 39.6 (OCT 12) 42.7 (OCT 11) Plt 395 (OCT 12) H 466 (OCT 11) Na 140 (OCT 13) 141 (OCT 12) 138 (OCT 11) K L 3.4 (OCT 13) 3.7 (OCT 12) 3.9 (OCT 11) CO2 26 (OCT 13) 28 (OCT 12) 24 (OCT 11) Cl 104 (OCT 13) 103 (OCT 12) 98 (OCT 11) Cr 1.17 (OCT 13) H 1.65 (OCT 12) H 3.10 (OCT 11) BUN 10 (OCT 13) 21 (OCT 12) H 27 (OCT 11) Glucose Random 75 (OCT 13) L 69 (OCT 12) 94 (OCT 11) Mg H 2.6 (OCT 12) H 3.0 (OCT 11) Phos 4.2 (OCT 12) H 5.1 (OCT 11) Ca 9.0 (OCT 13) L 8.3 (OCT 12) 9.1 (OCT 11) Troponin <0.02 (OCT 11) CK MB <0.5 (OCT 11) Total CK H 198 (OCT 11) MEDICATIONS Scheduled Meds (5):amLODIPine, enoxaparin (Lovenox), metoclopramide (Reglan), pantoprazole (Protonix), sucralfate (Carafate) Unscheduled Meds: None PRN Meds (5):hydrALAZINE, morphine Sulfate, ondansetron, sodium chloride (Saline Flush 0.9%), sodium chloride (Saline Flush 0.9%) One Time Meds: None Continuous Infusions (1):LVP solution with potassium 1,000 mL (D5W 1/2NS + KCL 20mEq/L 1000ml (Premix) 1,000 mL) ASSESSMENT and EXAM: GENERAL: Sitting up in bed in no distress at this time. HEENT: PERRL. NECK: No JVD. CARDIOVASCULAR: Regular rate and rhythm, S1, S2 positive. LUNGS: Clear to auscultation bilateral. GASTROINTESTINAL: Soft, nontender, nondistended, positive bowel sounds. EXTREMITIES: No clubbing, cyanosis or edema. NEUROLOGICAL: No deficits noted. SKIN: no rashes noted. DIAGNOSES and PROBLEMS: Intractable nausea and vomiting Status post laparoscopic gastric sleeve Acute renal failure Morbid obesity Psoriatic arthritis Hypertension PLAN and TREATMENT/HOSPITAL COURSE: Patient is doing much better today Discussed with GI and surgery Cleared for discharge on antiemetics with Carafate and a proton pump inhibitor Patient able to tolerate liquids now Received several days of IV vitamins We will discharge home with close follow-up as an outpatient with GI and surgery DISCHARGE NOTE: Condition: improved Activity: as tolerated Diet: bariatric Follow up: pcp 1 week Medications: see d/c go MATTHEWS time: 35 min Extracted from:Title: Surgery Staff Author: Precious Gary MD Date: 10/14/17 Surgery Staff Progress Note Precious Gary M.D. cc: N/V s/p LSG SUBJECTIVE: Doing much better. No further N/V. Tolerating cornelio clears without issue. Good UOP. Ambulating. Minimal, if any, incisional pain RIGHT abdomen at large incision where deep suture is. Wants to go home. OBJECTIVE: Physical Exam: gen - NAD abd - soft, nontender, incisions c/d/i without infection or port site hernia Vitals Tmp(F) Pulse BP RR SpO2 FIO2 10/14 07:00 98.4 76 137/86 -- 96 --- 10/14 03:20 98.1 75 150/91 -- 96 --- 10/13 23:34 98.1 78 151/89 -- 97 --- 10/13 19:51 98.8 82 144/86 -- 99 --- 10/13 14:59 97.8 94 142/90 -- 100 --- 24 Hr Tmax: 98.8F (37.11c) at 10/13 19:51 Vital Signs are the last 5 in the past 48 hours. I&O Record In Out Bal 10/13 24hr Tot 3111 0 3111 10/12 24hr Tot 3076 0 3076 Labs (Last four charted values) WBC 7.2 (OCT 12) 8.0 (OCT 11) Hgb L 13.1 (OCT 12) 14.1 (OCT 11) Hct L 39.6 (OCT 12) 42.7 (OCT 11) Plt 395 (OCT 12) H 466 (OCT 11) Na 140 (OCT 13) 141 (OCT 12) 138 (OCT 11) K L 3.4 (OCT 13) 3.7 (OCT 12) 3.9 (OCT 11) CO2 26 (OCT 13) 28 (OCT 12) 24 (OCT 11) Cl 104 (OCT 13) 103 (OCT 12) 98 (OCT 11) Cr 1.17 (OCT 13) H 1.65 (SEP 18) H 3.10 (OCT 11) BUN 10 (OCT 13) 21 (OCT 12) H 27 (OCT 11) Glucose Random 75 (OCT 13) L 69 (OCT 12) 94 (OCT 11) Mg H 2.6 (OCT 12) H 3.0 (OCT 11) Phos 4.2 (OCT 12) H 5.1 (OCT 11) Ca 9.0 (OCT 13) L 8.3 (OCT 12) 9.1 (OCT 11) Troponin <0.02 (OCT 11) CK MB <0.5 (OCT 11) Total CK H 198 (OCT 11) ASSESSMENT: 37 year old with 1 day history of persistent nausea and emesis s/p LSG 3..18. Doing better. Tolerating liquids. Renal function improved. Ready to go home. PLAN: 1. OK to d/c home from surgery standpoint. Cornelio clear/full liquids until sees me back in clinic on 10.16.17 for follow up. 2. Bariatric clear to full liquid diet. Crush all medications prior to taking. 3. RTC with me 10.16.17. 4. Resume home meds. 5. See med rec for new scripts. Take as prescribed only. Be sure to take carafate and protonix! 6. Activity: no strenuous activity or heavy lifting more than 10 pounds. OK to shower, no tub baths. Encourage ambulation and use of incentive spirometry. 7. Call Precious Gary MD at [phone] for: fever of 101.5 degrees F or higher, any big increase in abdominal pain, any redness/drainage from incisions, any persistent nausea/emesis, or any questions or concerns. Discussed with patient and RN. All questions answered. Extracted from:Title: Clinical Document Author: Abelardo Heath MD Date: 10/13/17 Progress Note - Daily [facility] Completed: Sep, 12:06 by Abelardo Heath MD RM: 309 - 1P, SE C3BS REYNA TANG 37y (: 1980) M Attending: Chaparro Yi MD Service: Internal Medicine Reason for Admission: ACUTE KIDNEY INSUFFICIENCY, DEHYDRATION Working DRG: Renal failure w/o CC/SENIOR CARE Code status: Full Code [Ordered] Current diet: Isolation: No Isolation/Standard Precautions Allergies: NKDA SUBJECTIVE 37 yo , morbid obesity S/p Gastric sleeve 10 days ago Readmitted for n/v and dehydration Gastirc sleeve [address] and UGI 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, 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, 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 Past hx HT, psoriasis , arthritis ,morbid obesity OBJECTIVE HEENT: Normal Pulmonary: Lungs clear Cardiac: Normal rate and rhythm, no murmurs Abdomen: Soft, nontender, no masses, good bowel sounds 24hr Labs 10/13 1115 Glucose Lvl 75 BUN 10 Creatinine Lvl 1.17 Sodium Lvl 140 Potassium Lvl 3.4 L Chloride Lvl 104 CO2 26 AGAP 13.4 Calcium Lvl 9.0 eGFR 79 10/12 1214 POC Performing Locatio See Note Glucose POC 71 10/12 0550 S Preg Negative Gallegos still necessary (Yes/No): Line still necessary (Yes/No): Vitals Tmp(F) Pulse BP RR SpO2 FIO2 10/13 07:12 98.6 77 134/85 -- 99 --- 10/13 03:00 98.4 78 149/81 -- 98 --- 10/12 23:13 99.2 75 165/94 -- 99 --- 10/12 18:45 98.3 67 145/74 -- 98 --- 10/12 16:04 98.5 77 127/82 18 97 --- 24 Hr Tmax: 99.2F (37.33c) at 10/12 23:13 Vital Signs are the last 5 in the past 48 hours. Date Wt(kg) Wt(lb) Ht(cm) Ht(in) Method 10/11 (initial) 129.09 284.00 Estimated 10/11 175.26 69.00 Stated I&O Record In Out Bal 10/13 24hr Tot 415 0 415 10/12 24hr Tot 3076 0 3076 Medications (13) Active Scheduled Meds (5): 10/14/17 amLODIPine 5 mg PO Daily 10/12/17 enoxaparin (Lovenox) 40 mg SUB-Q [id number] 10/13/17 metoclopramide (Reglan) 10 mg IVP Q6H 10/13/17 pantoprazole (Protonix) 40 mg IVP Daily 10/12/17 sucralfate (Carafate) 1 gm PO QID Unscheduled Meds: None PRN Meds (5): 10/12/17 hydrALAZINE 10 mg IVP Q6H 10/12/17 morphine Sulfate 2 mg IVP Q4H 10/11/17 ondansetron 4 mg IVP Q4H 10/11/17 sodium chloride (Saline Flush 0.9%) 10 mL IVP PRN 10/11/17 sodium chloride (Saline Flush 0.9%) 10 ml IVP PRN One Time Meds (1): 10/12/17 (Completed) iohexol (Omnipaque 300) 100 mL PO ONCE Continuous Infusions (2): 10/12/17 LVP solution with potassium 1,000 mL (D5W 1/2NS + KCL 20mEq/L 1000ml (Premix) 1,000 mL) 1,000 mL 125 ml/hr 10/13/17 Sodium Chloride 0.9% IV 1,000 mL + multivitamin 10 mL Daily + folic acid 1 mg Daily + thiamine 500 (Sodium Chloride 0.9% IV 1,000 mL + M.V.I.-12 10 mL Daily + folic acid IV 1 mg Daily + thiamine IV 5) 1,000 mL 100 ml/hr ASSESSMENT and EXAM Nausea , Vomiting dehydration and renal insufficiency Neg CT and UGI UGI suboptimal study - possible narrowing at distal sleeve PLAN and TREATMENT PPI Carafate Anti emetic Consider endoscopy if not tolerating liquids over next 24-48 hrs 10/14/2017 [facility] Extracted from:Title: Surgery Staff Author: Precious Gary MD Date: 10/02/17 Surgery Staff Progress Note Precious Abdirahman, M.D. cc: POD #1 s/p LSG with HH repair SUBJECTIVE: Feeling much better today. Cornelio clears going well without any emesis. Occasional 'sticking' feeling in throat. Hasn't required anti nausea meds. Ambulating. Pain only at specimen extraction site. Good UOP. Feels ready to go home. Has family at home that will be staying with him. OBJECTIVE: Physical Exam: gen - NAD abd - s/nt/nd, incisions c/d/i without infection or port site hernia, pain to palpation of largest incision where deep fascial suture is Vitals Tmp(F) Pulse BP RR SpO2 FIO2 10/02 08:04 ---- --- ----- 18 97 21% 10/02 08:00 98.0 83 160/91 18 97 --- 10/02 04:00 98.4 --- 147/90 -- 96 --- 10/02 01:00 ---- --- 158/74 -- --- --- 10/01 23:36 98.6 --- 165/97 -- 98 --- 24 Hr Tmax: 98.6F (37.00c) at 10/01 23:36 Vital Signs are the last 5 in the past 48 hours. I&O Record In Out Bal 10/01 24hr Tot 3049 1500 1549 09/30 24hr Tot 3138 1055 2084 Labs (Last four charted values) WBC H 12.9 (OCT 01) H 16.0 (SEP 30) 4.9 (SEP 25) Hgb L 13.2 (OCT 01) L 13.7 (SEP 30) L 13.6 (SEP 25) Hct L 40.3 (OCT 01) L 41.5 (SEP 30) L 40.1 (SEP 25) Plt 358 (OCT 01) 338 (SEP 30) 341 (SEP 25) Na 135 (OCT 01) 135 (SEP 30) 140 (SEP 25) K 3.8 (OCT 01) 4.4 (SEP 30) 4.1 (SEP 25) CO2 24 (OCT 01) 26 (SEP 30) 28 (SEP 25) Cl 101 (OCT 01) 100 (SEP 30) 102 (SEP 25) Cr 1.06 (OCT 01) 1.38 (SEP 30) 1.10 (SEP 25) BUN 8 (OCT 01) 13 (SEP 30) 9 (SEP 25) Glucose Random H 108 (OCT 01) H 146 (SEP 30) 94 (SEP 25) Ca 8.9 (OCT 01) 8.8 (SEP 30) 8.8 (SEP 25) ASSESSMENT: POD #2 s/p LSG with HH repair. Doing well. PLAN: 1. DISCHARGE home. 2. Bariatric full liquid diet. Crush all medications prior to taking. 3. RTC with me 1-2 weeks. Please call to confirm appointment details. 4. Resume home meds. Do not take prescribed pain medication with any other narcotic pain medication. Monitor blood pressure frequently at home. 5. See med rec for new scripts. Take as prescribed only. 6. Activity: no strenuous activity or heavy lifting more than 10 pounds. OK to shower, no tub baths. Encourage ambulation and use of incentive spirometry. 7. Call Precious Gary MD at [phone] for: fever of 101.5 degrees F or higher, any big increase in abdominal pain, any redness/drainage from incisions, any persistent nausea/emesis, or any questions or concerns. Discussed with patient and RN. All questions answered. Extracted from:Title: Surgery Staff Author: Precious Gary MD Date: 09/30/17 DATE OF OPERATION/PROCEDURE: 09.30.17 *_*_* SURGEON: Precious Gary M.D. AGENCY SALES MANAGEMENT ASSISTANT: 1. Eugene Wilkes M.D. 2. Paige Nuñez, surgical technician. PREOPERATIVE DIAGNOSES: 1. Morbid obesity. 2. Hiatal hernia. 3. Hypertension. 4. Psoriasis. 5. Arthritis. POSTOPERATIVE DIAGNOSES: 1. Morbid obesity. 2. Hiatal hernia. 3. Hypertension. 4. Psoriasis. 5. Arthritis. PROCEDURE: 1. Laparoscopic sleeve gastrectomy. 2. Laparoscopic hiatal hernia repair. 3. Intraoperative EGD - by Dr. Eugene Wilkes. PATHOLOGY: Portion of stomach. WOUND CLASS: Clean contaminated. ESTIMATED BLOOD LOSS: 30 mL FINDINGS: 1. Appropriately sized sleeve gastrectomy formed over a 36 marshallese VISIGI bougie starting 5 cm from the pylorus. 2. Negative intraoperative leak test. CONDITION ON TRANSFER Stable to recovery. INDICATION FOR SURGERY: This is a pleasant 37 year old gentleman who suffers from morbid obesity as well as the obesity associated condition of hypertension and arthritis. During preoperative work he was also diagnosed with a hiatal hernia. The risks and benefits of laparoscopic sleeve gastrectomy with hiatal hernia repair were discussed with the patient and he desired to proceed. PROCEDURE IN DETAIL: After informed consent was obtained, the patient was brought to the operating room and general anesthesia was induced per anesthesiology. He was positioned appropriately with all of his pressure points supported. He was then prepped and draped in the usual sterile fashion, after which a timeout performed. Appropriate perioperative antibiotics were given. We all agreed on the timeout. We began the procedure by injecting 0.25% Marcaine in the patient's left upper quadrant and using an optical access trocar to carefully gain access to the abdominal cavity under direct visualization after making a 5-mm incision. The abdominal cavity was entered under direct visualization and insufflation was begun. It was surveyed. Anatomy was normal. One further port was placed in the left upper quadrant, it was 5 mm. It was placed under direct visualization and then a 15 mm and a 5-mm port were placed in the patient's right upper quadrant under direct visualization. The liver retractor was placed to elevate the left lobe of the liver. We began by measuring 5 cm proximal to the pylorus and then began dissecting the greater omentum off the greater curvature of the stomach with the harmonic, caudal to cranial being sure to obtain hemostasis. Once the angle of His was fully mobilized, I began dissecting out the hiatus by opening the phrenoesophageal ligament. Once the hiatus was well dissected out and there was at least 3 cm of intra abdominal esophagus mobilized, a posterior crural repair was performed with a 2-0 silk Endostitch in a figure of 8 fashion. This was performed after the size 36-Icelandic VISIGI bougie had been carefully inserted and directed down into the patient's pyloric region. After the hiatal hernia repair, we then turned our attention to the posterior surface of the stomach to ensure all posterior attachments were taken down. Next, a black load CovRoamleren stapler with TRS staple line reinforcement was placed into the abdomen and the first staple fire was taken just lateral to the VISIGI bougie, taking care not to narrow the incisura. Then each subsequent black load reinforced staple fire was taken just lateral to the bougie ensuring that the staple line overlapped the previous staple line. The final staple fire was taken just lateral to the lateral angle of His. The stomach specimen was placed aside. The staple line was inspected. Hemostasis was reinforced with 5- mm clips. Dr. Wilkes scrubbed out to perform an intraoperative leak test through the endoscope. The endoscope was carefully directed into the patient's oropharynx and down through the esophagus into the newly formed sleeve gastrectomy. The patient was placed supine and normal saline was injected in the patient's upper abdomen. There were no leaks noted on the laparoscopic view while insufflating the stomach with the endoscope. The staple line was intact with good hemostasis on endoscopic view. The scope reached the pylorus and then the stomach was suctioned flat as the endoscope was carefully withdrawn. The specimen was removed through the 15-mm port site and then the fascia was closed with 0 Vicryl on a transfascial suture passer. All other trocars were removed under direct visualization. The skin was closed with a 4-0 Monocryl and skin glue was applied. The patient was awoken from general anesthesia and taken to recovery in stable condition. There were no immediate complications and all sponge, needle, and instrument counts were correct x 2. 10/02/2017 [facility] Plan of Care Plan of Care Date Source Discharge Date 08/04/18 2:22pm Disposition HOME, SELF-CARE Condition at Discharge Stable Instructions/Education Provided Strep Throat - Adult Forms Provided Work/School Excuse Prescriptions See Medication Section Referrals JANE ELKINS M.D. Order Date: Call for an appointment Address: [address] [place] [address] [place] [id number] Note: If not better can for an apt in 3 days Additional Instructions/Education Take Tylenol for pain 08/04/2018 [facility] Social History Social History Date Source Smoking Status Start Date Stop Date Never Smoker 08/04/2018 [facility] Social History TypeResponse Substance Abuse Use: None. Alcohol Current, Type Beer, Wine, Liquor. Frequency: 1-2 times per month. Smoking Status Never smoker; Type: Cigarettes; Exposure to Tobacco Smoke None; Cigarette Smoking Last 365 Days No; Reg Smoking Cessation Counseling No entered on: 11/02/17 09/25/2017 [facility] Social History TypeResponse Substance Abuse Use: None. Alcohol Current, Type Beer, Wine, Liquor. Frequency: 1-2 times per month. Smoking Status Never smoker; Type: Cigarettes; Exposure to Tobacco Smoke None; Cigarette Smoking Last 365 Days No; Reg Smoking Cessation Counseling No entered on: 11/02/17 09/25/2017 [facility] Social History TypeResponse Alcohol Never Smoking Status Never smoker; Exposure to Tobacco Smoke None; Cigarette Smoking Last 365 Days No; Reg Smoking Cessation Counseling No 02/17/2017 [facility] Social History TypeResponse Alcohol Never Smoking Status Never smoker; Exposure to Tobacco Smoke None; Cigarette Smoking Last 365 Days No; Reg Smoking Cessation Counseling No 02/17/2017 [facility] No data available for this section 09/28/2015 [facility] No data available for this section 05/19/2015 [facility] Family History No Data Provided for This Section Advance Directives Order Name Results Value Date Source Advance Directives Advance Directives Directive Response Recorded Date/Time Does the patient have an advance directive? No 08/04/18 1:47pm Do you have a Directive to Physician? No 08/04/18 1:47pm Do you have a Medical Power of [place] Operator? No 08/04/18 1:47pm Do you have an out of hospital Do Not Resuscitate Order? No 08/04/18 1:47pm Do you have any special needs we should be aware of? No 08/04/18 1:47pm Do you have a support person here with you today? No 08/04/18 1:47pm Did patient receive Notice of Privacy Practices? Yes 08/04/18 1:47pm Did patient receive patient rights and responsibilities? Yes 08/04/18 1:47pm 08/04/2018 [facility] Functional Status No Data Provided for This Section
--- OUTSIDE RECORDS SUMMARY | 2019-04-16 09:44 | XMS REPORT | Summary of Care ---
Author Author [facility] Address Unknown Phone Unavailable Encounter HQ Encntr_alias(FIN) [id number] Date(s): 09/27/15 - 09/27/15 [facility] [address] [place] [address] [phone] Discharge Disposition: Home Attending Physician: Lizeth Valencia MD Vital Signs No data available for this section Problem List No data available for this section Allergies, Adverse Reactions, Alerts No data available for this section Medications No data available for this section Results No data available for this section Immunizations No data available for this section Procedures No data available for this section Social History No data available for this section Assessment and Plan No data available for this section
--- OUTSIDE RECORDS SUMMARY | 2019-04-16 09:44 | XMS REPORT | Summary of Care ---
Author Author [facility] Outpatient Imaging [facility] Address Unknown Phone Unavailable Encounter HQ Encntr_alias(FIN) [id number] Date(s): 09/13/15 - 09/13/15 [facility] Outpatient Imaging [facility] [address] [place] [address] [phone] Discharge Disposition: Home Attending Physician: Misty Duque MD Vital Signs No [...]
--- OUTSIDE RECORDS SUMMARY | 2019-04-16 09:44 | XMS REPORT | Summary of Care ---
Author Author [facility] Organization [facility] Address Unknown Phone Unavailable Encounter HQ Encntr_alias(FIN) [id number] Date(s): 08/06/16 - 08/06/16 [facility] [address] [place] [address]- Discharge Disposition: Home or Self Care Attending Physician: Chidi Velasquez MD Vital Signs No data available for [...]
--- OUTSIDE RECORDS SUMMARY | 2019-04-16 09:44 | XMS REPORT | Summary of Care ---
Author Author [facility] Organization [facility] Address Unknown Phone Unavailable Encounter HQ Encntr_alias(FIN) [id number] Date(s): 05/18/15 - 05/18/[address] [address]- Discharge Disposition: Home Attending Physician: Mario Mclean MD Admitting Physician: Mario Mclean MD Vital Signs No data available for [...]
--- OUTSIDE RECORDS SUMMARY | 2019-04-16 09:44 | XMS REPORT | Summary of Care ---
Author Author [facility] Organization [facility] Address Unknown Phone Unavailable Encounter HQ Encntr_alias(FIN) [id number] Date(s): 05/18/15 - 05/18/[address] [address]- Discharge Disposition: Home Attending Physician: Mario Mclean [...]
--- OUTSIDE RECORDS SUMMARY | 2019-04-16 09:44 | XMS REPORT | Summary of Care ---
Author Organization Unknown Address Unknown Phone Unavailable Encounter HQ Encntr_alias(FIN) [id number] Date(s): 10/07/14 - 10/07/14 [facility] Outpatient Imaging [address] [address] [phone] Discharge Disposition: Home Physician Attending: Misty Duque MD Vital Signs No data [...]
--- OUTSIDE RECORDS SUMMARY | 2019-04-16 09:45 | XMS REPORT | Summary of Care ---
Author Author [facility] Organization [facility] Address Unknown Phone Unavailable Encounter HQ Nithya(SATISH) [id number] Date(s): 06/23/17 - 06/23/17 [facility] [address] [place] [address]- Discharge Disposition: Home or Self Care Attending Physician: Precious Gary MD Referring Physician: Precious Gary MD Vital Signs No data available for this section Problem List Condition Effective Dates Status Health Status Informant Arthralgia of Resolved knee(Confirmed) GERD Resolved (gastroesophageal reflux disease)(Confirmed) Hypertension(Confirm Resolved ed) Hypertension(Confirm Active ed) Depression(Confirmed Resolved ) Morbid Resolved obesity(Confirmed) Morbid Active obesity(Confirmed) Allergies, Adverse Reactions, Alerts Substance Reaction Severity Status NKDA Active Medications No data available for this section Results No data available for this section Immunizations No data available for this section Procedures No data available for this section Social History Social History Type Response Alcohol Never Smoking Status Never smoker; Exposure to Tobacco Smoke None; Cigarette Smoking Last 365 Days No; Reg Smoking Cessation Counseling No Assessment and Plan No data available for this section
--- OUTSIDE RECORDS SUMMARY | 2019-04-16 09:45 | XMS REPORT | Summary of Care ---
Author Author [facility] Organization [facility] Address Unknown Phone Unavailable Encounter HQ Hoang_gen(FIN) [id number] Date(s): 07/11/17 - 07/11/17 [facility] [address] [place] [address]- [phone] Discharge Disposition: Home or Self Care Attending Physician: Andrew Cruz MD Vital Signs No data available for [...]
--- OUTSIDE RECORDS SUMMARY | 2019-04-16 09:45 | XMS REPORT | Summary of Care ---
Author Author [facility] Organization [facility] Address Unknown Phone Unavailable Encounter HQ Nithya(FIN) [id number] Date(s): 07/04/17 - 07/04/17 [facility] [address] [place] [address]- [phone] Discharge Disposition: Home or Self Care Attending [...] Substance Reaction Severity Status NKDA Active Medications citalopram 20 mg oral tablet 20 mg=1 tab, PO, Daily, # 30 tab, 0 Refill(s), Pharmacy: [facility]/pharmacy #[id number] Start Date: 06/25/17 Status: Ordered Results No data available for this section [...]
--- OUTSIDE RECORDS SUMMARY | 2019-04-16 09:45 | XMS REPORT | Summary of Care ---
Author Author [facility] Outpatient Imaging [facility] Outpatient Imaging [facility] Address Unknown Phone Unavailable Encounter HQ Ashleyr_gen(FIN) [id number] Date(s): 05/20/17 - 05/20/17 [facility] Outpatient Imaging [facility] [address] [facility], [address] [place] [address] [phone] Discharge Disposition: Home or Self Care Attending Physician: Jose Rivers MD Vital Signs No data available for [...]
--- OUTSIDE RECORDS SUMMARY | 2019-04-16 09:45 | XMS REPORT | Summary of Care ---
Author Author [facility] Organization [facility] Address Unknown Phone Unavailable Encounter HQ Nithya(FIN) [id number] Date(s): 04/16/18 - 04/16/18 [facility] [address] [place] [address]- [phone] Encounter Diagnosis Unspecified abdominal pain (Final) - 06/26/18 Pleural effusion, not elsewhere classified (Final) - Bariatric surgery status (Final) - Discharge Disposition: Home or Self Care Attending Physician: Precious Gary MD Referring Physician: Precious Gary MD Vital Signs No data available for this section Problem List Condition Effective Dates Status Health Status Informant Arthralgia of Resolved knee(Confirmed) Hypertension(Confirm Active ed) Morbid Active obesity(Confirmed) Morbid Active obesity(Confirmed) Allergies, Adverse Reactions, Alerts Substance Reaction Severity Status NKDA Active Medications Omnipaque 300 100 mL, Route: IV, Drug Form: COLETTE SUERO, Start date: 04/16/18 11:00:00 CDT, D uration: 12 hr, Stop date: 04/16/18 22:59:00 CDT Notes: (Same as:Omnipaque 300).WASTE: F/P - Black; E - Municipal Trash Bin Start Date: 04/16/18 Stop Date: 04/16/18 Status: Completed Results No data available for this section Immunizations No data available for this section Procedures Procedure Date Related Diagnosis Body Site Status Esophagogastroduodenoscopy 02/18/17 Completed Sleeve gastrectomy with duodenal switch Completed Social History Social History Type Response Substance Abuse Use: None. Alcohol Current, Type Beer, Wine, Liquor. Frequency: 1-2 times per month. Smoking Status Never smoker; Type: Cigarettes; Exposure to Tobacco Smoke None; Cigarette Smoking Last 365 Days No; Reg Smoking Cessation Counseling No entered on: 11/02/17 Assessment and Plan No data available for this section
--- OUTSIDE RECORDS SUMMARY | 2019-04-16 09:45 | XMS REPORT | Summary of Care ---
Author Author [facility] Primary [facility] Address Unknown Phone Unavailable Encounter HQ Lisantr_alifabiano(FIN) [id number] Date(s): 08/01/17 - 08/02/17 [facility] [address] [place], [place] [address]- [phone] Vital Signs No data available for this [...] Daily, # 30 tab, 0 Refill(s), Pharmacy: [facility]/pharmacy #[id number] Start Date: 08/01/17 Status: Ordered Results No data available for [...]
--- OUTSIDE RECORDS SUMMARY | 2019-04-16 09:45 | XMS REPORT | Summary of Care ---
Author Author [facility] Organization [facility] Address Unknown Phone Unavailable Encounter HQ Encntr_alias(FIN) [id number] Date(s): 12/20/16 - 01/18/17 [facility] [address] [place] [address]- [phone] Discharge Disposition: Home or Self Care Attending Physician: Ortega Jaime MD Referring Physician: Fab Montero MD Vital Signs No data available for [...]
--- OUTSIDE RECORDS SUMMARY | 2019-04-16 09:45 | XMS REPORT | Summary of Care ---
Author Author [facility] Address Unknown Phone Unavailable Encounter HQ Ashleyr_gen(FIN) [id number] Date(s): 01/31/17 - 03/01/17 [facility] Discharge Disposition: Home or Self Care Attending Physician: Fab Montero MD Vital Signs No [...]
--- OUTSIDE RECORDS SUMMARY | 2019-04-16 09:45 | XMS REPORT | Summary of Care ---
Author Author [facility] Organization [facility] Address Unknown Phone Unavailable Encounter MANJULA Barriga(SATISH) [id number] Date(s): 02/18/17 - 02/18/17 [facility] [address] [place] [address]- [phone] Discharge Disposition: Home or Self Care Attending Physician: Abelardo Heath MD Referring Physician: Abelardo Heath MD Vital Signs 1 2 3 Most recent to oldest [Reference Range]: 180.3 cm (02/17/17 2:41 PM) Height 148/82 mmHg *HI* (02/18/17 9:15 AM) 151/94 mmHg *HI* (02/18/17 9:00 AM) 135/94 mmHg (02/18/17 8:51 AM) Blood Pressure [90-140/60-90 mmHg] 22 BRMIN *HI* (02/18/17 9:15 AM) 18 BRMIN (02/18/17 9:00 AM) 22 BRMIN *HI* (02/18/17 8:51 AM) Respiratory Rate [14-20 BRMIN] 77 bpm (02/18/17 8:34 AM) Peripheral Pulse Rate [60-100 bpm] 133.636 kg (02/17/17 2:41 PM) Weight 41.11 m2 (02/17/17 2:41 PM) Body Mass Index Problem List Condition Effective Dates Status Health Status Informant Arthralgia of Resolved knee(Confirmed) GERD Resolved (gastroesophageal reflux disease)(Confirmed) Hypertension(Confirm Resolved ed) Hypertension(Confirm Active ed) Depression(Confirmed Resolved ) Morbid Resolved obesity(Confirmed) Morbid Active obesity(Confirmed) Allergies, Adverse Reactions, Alerts Substance Reaction Severity Status NKDA Active Medications naproxen 500 mg=1 tab, PO, BID, PRN Pain, # 30 tab, 0 Refill(s) Start Date: 02/17/17 Stop Date: 03/04/17 Status: Ordered Sodium Chloride 0.9% (Bolus) IV 500 mL, 0 ml/hr, Infuse Over: 0 hr, Route: IV, 500, Drug form: INJ, ONCE, Dosing Weight 133.636 kg, Start date: 02/17/17 14:55:00 CDT, Stop date: 02/17/17 14:55 :00 CDT, Bolus Start Date: 02/17/17 Stop Date: 02/17/17 Status: Completed Results No data available for [...]
--- OUTSIDE RECORDS SUMMARY | 2019-04-16 09:45 | XMS REPORT | Summary of Care ---
Author Author [facility] Organization [facility] Address Unknown Phone Unavailable Encounter HQ Encntr_alifabiano(FIN) [id number] Date(s): 10/29/16 - 11/27/16 [facility] [address] [place] [address]- Discharge Disposition: Home or Self Care Attending [...]
--- OUTSIDE RECORDS SUMMARY | 2019-04-16 09:45 | XMS REPORT | Summary of Care ---
Author Author [facility] Address Unknown Phone Unavailable Encounter HQ Hoang_gen(FIN) [id number] Date(s): 10/30/17 - 11/28/17 [facility] Discharge Disposition: Home or Self Care Attending Physician: SY RAE Vital Signs No data available for this [...]
--- OUTSIDE RECORDS SUMMARY | 2019-04-16 09:45 | XMS REPORT | Summary of Care ---
Author Author [facility] Address Unknown Phone Unavailable Encounter HQ Encntr_alias(FIN) [id number] Date(s): 12/20/16 - 01/18/17 [facility] Discharge Disposition: Home or [...]
--- OUTSIDE RECORDS SUMMARY | 2019-04-16 09:45 | XMS REPORT | Summary of Care ---
Author Author [facility] Address Unknown Phone Unavailable Encounter HQ Encntr_alifabiano(FIN) [id number] Date(s): 10/09/16 - 11/07/16 [facility] Discharge Disposition: Home or Self Care Attending [...]
--- OUTSIDE RECORDS SUMMARY | 2019-04-16 09:46 | XMS REPORT | Summary of Care ---
Author Author [facility] Address Unknown Phone Unavailable Encounter HQ Hoang_gen(FIN) [id number] Date(s): 09/09/17 - 10/08/17 [facility] Encounter Diagnosis Low back pain (Final) - 10/14/17 Pain in thoracic spine (Final) - Abnormal posture (Final) - Discharge Disposition: Home or Self Care Attending Physician: [id number] -SY ELKINS Vital Signs No data available for this [...]
--- OUTSIDE RECORDS SUMMARY | 2019-04-16 09:46 | XMS REPORT | Summary of Care ---
Author Author [facility] Organization [facility] Address Unknown Phone Unavailable Encounter HQ Hoang_gen(FIN) [id number] Date(s): 02/10/18 - 02/10/18 [facility] [address] [place] [address]- [phone] Encounter Diagnosis Calculus of kidney (Final) - 02/15/18 Constipation, unspecified (Final) - Discharge Disposition: Home or Self Care Attending Physician: Juan Frederick MD Vital Signs No data available for [...]
--- OUTSIDE RECORDS SUMMARY | 2019-04-16 09:46 | XMS REPORT | Summary of Care ---
Author Author [facility] Organization [facility] Address Unknown Phone Unavailable Encounter MANJULA Barriga(SATISH) [id number] Date(s): 10/11/17 - 10/14/17 [facility] [address] [place] [address]- Encounter Diagnosis Disorder of kidney and ureter, unspecified (Final) - Acute kidney failure, unspecified (Final) - 10/20/17 Body mass index (BMI) 40.0-44.9, adult (Final) - Morbid (severe) obesity due to excess calories (Final) - Dehydration (Final) - Nausea with vomiting, unspecified (Final) - Right upper quadrant pain (Final) - Essential (primary) hypertension (Final) - Arthropathic psoriasis, unspecified (Final) - Bariatric surgery status (Final) - Discharge Disposition: Home or Self Care Attending Physician: Chaparro Yi MD Admitting Physician: Chaparro Yi MD Vital Signs 1 2 3 Most recent to oldest [Reference Range]: 175.26 cm (10/11/17 10:10 PM) 175.26 cm (10/11/17 3:47 PM) Height 98.4 DegF (10/14/17 7:00 AM) 98.1 DegF (10/14/17 3:20 AM) 98.1 DegF (10/13/17 11:34 PM) Temperature Oral [96.4-99.1 DegF] 137/86 mmHg (10/14/17 7:00 AM) 150/91 mmHg *HI* (10/14/17 3:20 AM) 151/89 mmHg *HI* (10/13/17 11:34 PM) Blood Pressure [90-140/60-90 mmHg] 18 BRMIN (10/12/17 4:04 PM) 18 BRMIN (10/12/17 3:57 PM) 18 BRMIN (10/12/17 12:00 PM) Respiratory Rate [14-20 BRMIN] 76 bpm (10/14/17 7:00 AM) 75 bpm (10/14/17 3:20 AM) 78 bpm (10/13/17 11:34 PM) Peripheral Pulse Rate [60-100 bpm] 129.545 kg (10/11/17 10:10 PM) 129.091 kg (10/11/17 3:47 PM) Weight 42.17 m2 (10/11/17 10:10 PM) 42.03 m2 (10/11/17 3:47 PM) Body Mass Index Problem List Condition Effective Dates Status Health Status Informant Arthralgia of Resolved knee(Confirmed) Hypertension(Confirm Active ed) Morbid Active obesity(Confirmed) Morbid Active obesity(Confirmed) Allergies, Adverse Reactions, Alerts Substance Reaction Severity Status NKDA Active Medications acetaminophen-hydrocodone 325 mg-10 mg/15 mL oral solution 15 mL, PO, Q6H, PRN Pain Score 4-6, 0 Refill(s) Start Date: 10/11/17 Stop Date: 10/11/17 Status: Completed acetaminophen-hydrocodone 325 mg-7.5 mg/15 mL oral solution 15 mL, PO, Q6H, PRN Pain Score 4-6, 0 Refill(s) Start Date: 10/11/17 Stop Date: 10/14/17 Status: Discontinued amLODIPine 5 mg, 1 tab, Route: PO, Drug form: TAB, Daily, Dosing Weight 129.545, kg, Start date: 10/14/17 9:00:00 CDT, Duration: 30 day, Stop date: 11/12/17 9:00:00 CDT Notes: (Same as: Norvasc) Start Date: 10/14/17 Stop Date: 10/14/17 Status: Discontinued Bentyl 20 mg, 2 mL, Route: IM, Drug form: INJ, ONCE, Dosing Weight 129.091, kg, Start d ate: 10/11/17 15:51:00 CDT, Stop date: 10/11/17 15:51:00 CDT Notes: (Same as: Bentyl) Start Date: 10/11/17 Stop Date: 10/11/17 Status: Completed Carafate 1 gm, 1 tab, Route: PO, Drug form: TAB, QID, Dosing Weight 129.545, kg, Start da te: 10/12/17 13:00:00 CDT, Duration: 30 day, Stop date: 11/11/17 9:00:00 CDT Notes: May interfere w/enteral feeds - Take 1 hr before or 2 hr after antacids, dairy pdt, meals & minerals - On empty stomach.For patients unable to swallow tablet, dissolve in 10mL - 30mL of water or juice and stir before giving. (Same As: Carafate) Start Date: 10/12/17 Stop Date: 10/14/17 Status: Discontinued Carafate 1 g/10 mL oral suspension 1 gm=10 ml, PO, QID-Before Meals, # 560 mL, 0 Refill(s), Pharmacy: [facility]/pharmacy #[id number] Start Date: 10/14/17 Stop Date: 10/28/17 Status: Ordered D5W 1/2NS + KCL 20mEq/L 1000ml (Premix) 1,000 mL 1,000 mL, Rate: 125 ml/hr, Infuse over: 8 hr, Route: IV, Dosing Weight 129.545 k g, Total Volume: 1,000, Start date: 10/12/17 9:28:00 CDT, Duration: 30 day, Stop date: 11/11/17 9:27:00 CDT, 2.55, m2 Notes: PREMIX IV - Do Not AlterWASTE: F/P - Sink; E - Municipal Trash Bin Start Date: 10/12/17 Stop Date: 10/14/17 Status: Discontinued hydrALAZINE 10 mg, 0.5 mL, Route: IVP, Drug form: INJ, Q6H, Dosing Weight 129.545, kg, PRN E levated BP, Start date: 10/12/17 12:45:00 CDT, Duration: 30 day, Stop date: 10/26 02/11 12:44:00 CDT Notes: (Same as: Apresoline)Push over 5 minutes Start Date: 10/12/17 Stop Date: 10/14/17 Status: Discontinued lisinopril 40 mg oral tablet 40 mg=1 tab, PO, Daily, 0 Refill(s) Start Date: 10/11/17 Status: Ordered Lovenox 40 mg, 0.4 mL, Route: SUB-Q, Drug form: INJ, [id number], Dosing Weight 129.545, kg , Start date: 10/12/17 14:00:00 CDT, Duration: 30 day, Stop date: 11/10/17 14:00 :00 CDT Notes: (Same as: Lovenox) Start Date: 10/12/17 Stop Date: 10/14/17 Status: Discontinued morphine Sulfate 6 mg, 3 mL, Route: PO, Drug form: SOLN, Q4H, PRN Pain Score 7-10, Start date: 15:08:00 CDT, Stop date: 11/12/17 15:07:00 CDT Notes: (Same as:MORPhine Sulfate) Start Date: 10/13/17 Stop Date: 10/14/17 Status: Discontinued morphine Sulfate 4 mg, 1 mL, Route: IVP, Drug form: SOLN, Q4H, Dosing Weight 129.091, kg, PRN Shawn n Score 7-10, Start date: 10/11/17 21:02:00 CDT, Duration: 30 day, Stop date: 21:01:00 CDT Notes: (Same as:MORPhine Sulfate) Start Date: 10/11/17 Stop Date: 10/12/17 Status: Discontinued morphine Sulfate 2 mg, 1 mL, Route: IVP, Drug form: SOLN, Q4H, Dosing Weight 129.091, kg, PRN Shawn n Score 7-10, Start date: 10/12/17 12:07:00 CDT, Duration: 30 day, Stop date: 12:06:00 CDT Start Date: 10/12/17 Stop Date: 10/13/17 Status: Voided With Results NS (Bolus) IV 1,000 mL, 1,000 ml/hr, Infuse Over: 1 hr, Route: IV, 1,000, Drug form: INJ, ONCE , Priority: STAT, Dosing Weight 129.091 kg, Start date: 10/11/17 20:46:00 CDT, S top date: 10/11/17 20:46:00 CDT Start Date: 10/11/17 Stop Date: 10/11/17 Status: Completed NS (Bolus) IV 1,000 mL, 1,000 ml/hr, Infuse Over: 1 hr, Route: IV, 1,000, Drug form: INJ, ONCE , Priority: STAT, Dosing Weight 129.091 kg, Start date: 10/11/17 21:03:00 CDT, S top date: 10/11/17 21:03:00 CDT Start Date: 10/11/17 Stop Date: 10/12/17 Status: Completed NS 1,000 mL 1,000 mL, Rate: 125 ml/hr, Infuse over: 8 hr, Route: IV, Dosing Weight 129.091 k g, Total Volume: 1,000, Start date: 10/11/17 20:21:00 CDT, Duration: 30 day, Sto p date: 11/10/17 20:20:00 CDT, 2.54, m2 Start Date: 10/11/17 Stop Date: 10/11/17 Status: Discontinued Omnipaque 300 100 mL, Route: PO, Drug Form: SOLN, Dosing Weight 129.545, kg, ONCE, Start date: 10/12/17 8:29:00 CDT, Stop date: 10/12/17 8:29:00 CDT Notes: (Same as:Omnipaque 300).WASTE: F/P - Black; E - Municipal Trash Bin Start Date: 10/12/17 Stop Date: 10/12/17 Status: Completed ondansetron 4 mg, 2 mL, Route: IVP, Drug form: INJ, ONCE, Dosing Weight 129.091, kg, Priorit y: STAT, Start date: 10/11/17 15:51:00 CDT, Stop date: 10/11/17 15:51:00 CDT Notes: (Same as: Zofran) MEDICATION WASTE Product Size: 4 mgProduct Was verónica: ___ mg Start Date: 10/11/17 Stop Date: 10/11/17 Status: Completed ondansetron 4 mg, 2 mL, Route: IVP, Drug form: INJ, Q4H, Dosing Weight 129.091, kg, PRN Naus ea & Vomiting, Start date: 10/11/17 21:02:00 CDT, Duration: 30 day, Stop date: 11/10/17 21:01:00 CDT Notes: (Same as: Zofran) MEDICATION WASTE Product Size: 4 mgProduct Was verónica: ___ mg Start Date: 10/11/17 Stop Date: 10/14/17 Status: Discontinued Protonix 40 mg, Route: IVP, Drug form: INJ, Daily, Dosing Weight 129.545, kg, Patient is NPO, Start date: 10/13/17 9:00:00 CDT, Duration: 30 day, Stop date: 11/11/17 9:0 0:00 CDT Notes: For IV push reconstitute with 10 ml 0.9% sodium chloride and push over 2 minutes. (Same as: Protonix) Start Date: 10/13/17 Stop Date: 10/14/17 Status: Discontinued Protonix 40 mg oral enteric coated tablet 40 mg=1 tab, PO, Daily, # 30 tab, 1 Refill(s), Pharmacy: [facility]/pharmacy #[id number] Start Date: 10/14/17 Status: Ordered Reglan 10 mg, 2 mL, Route: IVP, Drug form: SOLN, Q6H, Dosing Weight 129.545, kg, Start date: 10/13/17 12:00:00 CDT, Duration: 30 day, Stop date: 11/12/17 6:00:00 CDT Notes: (Same as: Reglan) Start Date: 10/13/17 Stop Date: 10/14/17 Status: Discontinued Saline Flush 0.9% 10 mL, Route: IVP, Drug Form: INJ, Dosing Weight 129.091, kg, PRN, PRN Line Flus h, Start date: 10/11/17 15:51:00 CDT, Duration: 30 day, Stop date: 11/10/17 15:5 0:00 CDT Notes: (Same as: BD Posiflush) Start Date: 10/11/17 Stop Date: 10/14/17 Status: Discontinued Saline Flush 0.9% 10 ml, Route: IVP, Drug Form: INJ, Dosing Weight 129.091, kg, PRN, PRN Line Flus h, Start date: 10/11/17 21:02:00 CDT, Duration: 30 day, Stop date: 11/10/17 21:0 1:00 CDT Notes: (Same as: BD Posiflush) Start Date: 10/11/17 Stop Date: 10/14/17 Status: Discontinued Sodium Chloride 0.9% (Bolus) IV 1,000 mL, 1000 ml/hr, Infuse Over: 1 hr, Route: IV, 1,000, Drug form: INJ, ONCE, Priority: STAT, Dosing Weight 129.091 kg, Start date: 10/11/17 15:51:00 CDT, St op date: 10/11/17 15:51:00 CDT Start Date: 10/11/17 Stop Date: 10/11/17 Status: Completed Sodium Chloride 0.9% IV 1,000 mL 1,000 mL, Rate: 125 ml/hr, Infuse over: 8 hr, Route: IV, Dosing Weight 129.091 k g, Total Volume: 1,000, Start date: 10/11/17 21:02:00 CDT, Duration: 30 day, Sto p date: 11/10/17 21:01:00 CDT, 2.54, m2 Start Date: 10/11/17 Stop Date: 10/12/17 Status: Discontinued Sodium Chloride 0.9% IV 1,000 mL + M.V.I.-12 10 mL Daily + folic acid IV 1 mg Da king + thiamine IV 5 1,000 mL, Rate: 100 ml/hr, Infuse over: 10.2 hr, Route: IV, Dosing Weight 129.54 5 kg, Total Volume: 1,015.2, Start date: 10/12/17 12:02:00 CDT, Duration: 1 dose s or times, Stop date: 10/12/17 22:13:00 CDT, 2.55, m2 Start Date: 10/12/17 Stop Date: 10/12/17 Status: Completed Sodium Chloride 0.9% IV 1,000 mL + M.V.I.-12 10 mL Daily + folic acid IV 1 mg Da king + thiamine IV 5 1,000 mL, Rate: 100 ml/hr, Infuse over: 10.2 hr, Route: IV, Dosing Weight 129.54 5 kg, Total Volume: 1,015.2, Start date: 10/13/17 9:34:00 CDT, Duration: 1 doses or times, Stop date: 10/13/17 19:45:00 CDT, 2.55, m2 Start Date: 10/13/17 Stop Date: 10/13/17 Status: Completed Sodium Chloride 0.9% IV 984.8 mL + M.V.I.-12 10 mL Daily + folic acid IV 1 mg Da king + thiamine IV 5 984.8 mL, Rate: 100 ml/hr, Infuse over: 10 hr, Route: IV, Dosing Weight 129.091 kg, Total Volume: 1,000, Start date: 10/11/17 16:30:00 CDT, Duration: 1 doses or times, Stop date: 10/12/17 2:29:00 CDT, 2.54, m2 Start Date: 10/11/17 Stop Date: 10/11/17 Status: Completed Results ELECTROLYTES 1 2 3 Most recent to oldest [Reference Range]: 140 mEq/L (10/13/17 11:15 AM) 141 mEq/L (10/12/17 5:50 AM) 138 mEq/L (10/11/17 4:28 PM) Sodium Lvl [135-145 mEq/L] 3.4 mEq/L *LOW* (10/13/17 11:15 AM) 3.7 mEq/L (10/12/17 5:50 AM) 3.9 mEq/L (10/11/17 4:28 PM) Potassium Lvl [3.5-5.1 mEq/L] 104 mEq/L (10/13/17 11:15 AM) 103 mEq/L (10/12/17 5:50 AM) 98 mEq/L (10/11/17 4:28 PM) Chloride Lvl [95-109 mEq/L] 26 mEq/L (10/13/17 11:15 AM) 28 mEq/L (10/12/17 5:50 AM) 24 mEq/L (10/11/17 4:28 PM) CO2 [24-32 mEq/L] 13.4 mEq/L (10/13/17 11:15 AM) 13.7 mEq/L (10/12/17 5:50 AM) 19.9 mEq/L (10/11/17 4:28 PM) AGAP [10.0-20.0 mEq/L] CHEM PANEL 1 2 3 Most recent to oldest [Reference Range]: 1.17 mg/dL (10/13/17 11:15 AM) 1.65 mg/dL *HI* (10/12/17 5:50 AM) 3.10 mg/dL *HI* (10/11/17 4:28 PM) Creatinine Lvl [0.50-1.40 mg/dL] 79 mL/min/1.73m2 1 *NA* (10/13/17 11:15 AM) 52 mL/min/1.73m2 2 *NA* (10/12/17 5:50 AM) 24 mL/min/1.73m2 3 *NA* (10/11/17 4:28 PM) eGFR 10 mg/dL (10/13/17 11:15 AM) 21 mg/dL (10/12/17 5:50 AM) 27 mg/dL *HI* (10/11/17 4:28 PM) BUN [7-22 mg/dL] 13 (10/12/17 5:50 AM) 9 (10/11/17 4:28 PM) B/C Ratio [6-25] 75 mg/dL (10/13/17 11:15 AM) 69 mg/dL *LOW* (10/12/17 5:50 AM) 94 mg/dL (10/11/17 4:28 PM) Glucose Lvl [70-99 mg/dL] 8.2 g/dL (10/12/17 5:50 AM) 9.3 g/dL *HI* (10/11/17 4:28 PM) Total Protein [6.4-8.4 g/dL] 3.8 g/dL (10/12/17 5:50 AM) 4.5 g/dL (10/11/17 4:28 PM) Albumin Lvl [3.5-5.0 g/dL] 4.4 g/dL *HI* (10/12/17 5:50 AM) 4.8 g/dL *HI* (10/11/17 4:28 PM) Globulin [2.7-4.2 g/dL] 0.9 (10/12/17 5:50 AM) 0.9 (10/11/17 4:28 PM) A/G Ratio [0.7-1.6] 9.0 mg/dL (10/13/17 11:15 AM) 8.3 mg/dL *LOW* (10/12/17 5:50 AM) 9.1 mg/dL (10/11/17 4:28 PM) Calcium Lvl [8.5-10.5 mg/dL] 4.2 mg/dL (10/12/17 5:50 AM) 5.1 mg/dL *HI* (10/11/17 4:28 PM) Phosphorus [2.5-4.5 mg/dL] 2.6 mg/dL *HI* (10/12/17 5:50 AM) 3.0 mg/dL *HI* (10/11/17 4:28 PM) Magnesium Lvl [1.8-2.4 mg/dL] 48 unit/L (10/12/17 5:50 AM) 56 unit/L (10/11/17 4:28 PM) ALT [0-65 unit/L] 21 unit/L (10/12/17 5:50 AM) 24 unit/L (10/11/17 4:28 PM) AST [0-37 unit/L] 60 unit/L (10/12/17 5:50 AM) 68 unit/L (10/11/17 4:28 PM) Alk Phos [39-136 unit/L] 0.7 mg/dL (10/12/17 5:50 AM) 0.8 mg/dL (10/11/17 4:28 PM) Bili Total [0.2-1.3 mg/dL] 213 unit/L (10/11/17 4:28 PM) Lipase Lvl [73-393 unit/L] 141.8 nMol/L 4 *NA* (10/11/17 4:28 PM) Vitamin B1 [66.5-200.0 nMol/L] 1Result Comment: The eGFR is calculated using the [...] from the National Kidney Disease Education Program ( NKDEP) which additionally recommends that when the eGFR is used in patients with extremes of body mass index for purposes of drug dosing, the eGFR should be mul tiplied by the estimated BMI. 2Result Comment: The eGFR is calculated using the [...] from the National Kidney Disease Education Program ( NKDEP) which additionally recommends that when the eGFR is used in patients with extremes of body mass index for purposes of drug dosing, the eGFR should be mul tiplied by the estimated BMI. 3Result Comment: The eGFR is calculated using the [...] from the National Kidney Disease Education Program ( NKDEP) which additionally recommends that when the eGFR is used in patients with extremes of body mass index for purposes of drug dosing, the eGFR should be mul tiplied by the estimated BMI. 4Result Comment: This test was developed and its performance characteristics determined by [facility]. It has not been cleared or approved by the Food and Drug Administration. Performed At: [address] [id number] Tapan Merritt MD Ph:[phone] CARDIAC ENZYMES 1 2 3 Most recent to oldest [Reference Range]: 198 unit/L *HI* (10/11/17 4:28 PM) Total CK [12-191 unit/L] <0.5 ng/mL (10/11/17 4:28 PM) CK MB [0.5-3.6 ng/mL] <0.3 (10/11/17 4:28 PM) CK MB Index [0.0-2.5] <0.02 ng/mL (10/11/17 4:28 PM) Troponin-I [0.00-0.40 ng/mL] ENDOCRINOLOGY 1 2 3 Most recent to oldest [Reference Range]: Negative *NA* (10/12/17 5:50 AM) S Preg [Negative] URINE AND STOOL 1 2 3 Most recent to oldest [Reference Range]: Slight *ABN* (10/12/17 3:02 AM) UA Turbidity [Clear] Yellow *NA* (10/12/17 3:02 AM) UA Color [Yellow] 5.0 (10/12/17 3:02 AM) UA pH [5.0-8.0] 1.020 (10/12/17 3:02 AM) UA Spec Grav [<=1.030] Negative mg/dL *NA* (10/12/17 3:02 AM) UA Glucose [Negative mg/dL] Negative (10/12/17 3:02 AM) UA Blood [Negative] 80 mg/dL *ABN* (10/12/17 3:02 AM) UA Ketones [Negative mg/dL] 30 mg/dL *ABN* (10/12/17 3:02 AM) UA Protein [Negative mg/dL] <=1.0 mg/dL *NA* (10/12/17 3:02 AM) UA Urobilinogen [0.1-1.0 mg/dL] Negative *NA* (10/12/17 3:02 AM) UA Bili [Negative] Negative (10/12/17 3:02 AM) UA Leuk Est [Negative] Negative (10/12/17 3:02 AM) UA Nitrite [Negative] 2 /HPF (10/12/17 3:02 AM) UA WBC [0-5 /HPF] <1 /HPF (10/12/17 3:02 AM) UA RBC [0-2 /HPF] Occasional /LPF *NA* (10/12/17 3:02 AM) UA Sq Epi [Few /LPF] 8 /LPF *HI* (10/12/17 3:02 AM) UA Hyal Cast [0-2 /LPF] Few /LPF *NA* (10/12/17 3:02 AM) UA Mucus [None Seen /LPF] HEMATOLOGY 1 2 3 Most recent to oldest [Reference Range]: 7.2 K/CMM (10/12/17 5:50 AM) 8.0 K/CMM (10/11/17 4:28 PM) WBC [3.7-10.4 K/CMM] 4.69 M/CMM *LOW* (10/12/17 5:50 AM) 5.09 M/CMM (10/11/17 4:28 PM) RBC [4.70-6.10 M/CMM] 13.1 g/dL *LOW* (10/12/17 5:50 AM) 14.1 g/dL (10/11/17 4:28 PM) Hgb [14.0-18.0 g/dL] 39.6 % *LOW* (10/12/17 5:50 AM) 42.7 % (10/11/17 4:28 PM) Hct [42.0-54.0 %] 84.5 fL (10/12/17 5:50 AM) 83.8 fL (10/11/17 4:28 PM) MCV [80.0-94.0 fL] 27.9 pg (10/12/17 5:50 AM) 27.7 pg (10/11/17 4:28 PM) MCH [27.0-31.0 pg] 33.0 g/dL (10/12/17 5:50 AM) 33.0 g/dL (10/11/17 4:28 PM) MCHC [32.0-36.0 g/dL] 14.0 % (10/12/17 5:50 AM) 14.2 % (10/11/17 4:28 PM) RDW [11.5-14.5 %] 8.0 fL (10/12/17 5:50 AM) 8.2 fL (10/11/17 4:28 PM) MPV [7.4-10.4 fL] 395 K/CMM (10/12/17 5:50 AM) 466 K/CMM *HI* (10/11/17 4:28 PM) Platelet [133-450 K/CMM] 49.0 % (10/12/17 5:50 AM) 58.9 % (10/11/17 4:28 PM) Segs [45.0-75.0 %] 36.7 % (10/12/17 5:50 AM) 30.5 % (10/11/17 4:28 PM) Lymphocytes [20.0-40.0 %] 9.8 % (10/12/17 5:50 AM) 8.7 % (10/11/17 4:28 PM) Monocytes [2.0-12.0 %] 2.8 % (10/12/17 5:50 AM) 0.9 % (10/11/17 4:28 PM) Eosinophils [0.0-4.0 %] 1.7 % *HI* (10/12/17 5:50 AM) 1.0 % (10/11/17 4:28 PM) Basophils [0.0-1.0 %] 3.5 K/CMM (10/12/17 5:50 AM) 4.7 K/CMM (10/11/17 4:28 PM) Segs-Bands # [1.5-8.1 K/CMM] 2.7 K/CMM (10/12/17 5:50 AM) 2.4 K/CMM (10/11/17 4:28 PM) Lymphocytes # [1.0-5.5 K/CMM] 0.7 K/CMM (10/12/17 5:50 AM) 0.7 K/CMM (10/11/17 4:28 PM) Monocytes # [0.0-0.8 K/CMM] 0.2 K/CMM (10/12/17 5:50 AM) 0.1 K/CMM (10/11/17 4:28 PM) Eosinophils # [0.0-0.5 K/CMM] 0.1 K/CMM (10/12/17 5:50 AM) 0.1 K/CMM (10/11/17 4:28 PM) Basophils # [0.0-0.2 K/CMM] Immunizations No data available for this section [...] No entered on: 11/02/17 Assessment and Plan Extracted from: Title: Clinical Document Author: Eugene Sargent MD Date: 10/14/17 Hospitalist discharge note [facility] Eugene Sargent MD SUBJECTIVE: Patient seen and examined, events reviewed Feels much better today and is able to tolerate a liquid diet now. He has been cleared by GI as well as surgery for discharge home on Carafate as well as a PPI and antiemetics. OBJECTIVE: Vitals and Temp: VitalsTmp(F)[id number] 10/14 07:0098.791636/86--96--- 10/14 03:2098.815743/91--96--- 10/13 23:3498.535956/89--97--- 10/13 19:5198.724323/86--99--- 10/13 14:5997.435253/90--100--- 24 Hr Tmax: 98.8F (37.11c) at 10/13 19:51Vital Signs are the last 5 in the past 48 hours. Input/Output RecordInOutBal 09/2023hr Tot 50 0 50 09/1923hr Tot 3111 0 3111 Labs (Last four charted values) WBC 7.2(OCT 12)8.0(OCT 11) Hgb L 13.1(OCT 12)14.1(OCT 11) Hct L 39.6(OCT 12)42.7(OCT 11) Plt 395(OCT 12)H 466(OCT 11) Na 140(OCT 13)141(OCT 12)138(OCT 11) K L 3.4(OCT 13)3.7(OCT 12)3.9(OCT 11) CO2 26(OCT 13)28(OCT 12)24(OCT 11) Cl 104(OCT 13)103(OCT 12)98(OCT 11) Cr 1.17(OCT 13)H 1.65(OCT 12)H 3.10(OCT 11) BUN 10(OCT 13)21(OCT 12)H 27(OCT 11) Glucose Random 75(OCT 13)L 69(OCT 12)94(OCT 11) Mg H 2.6(OCT 12)H 3.0(OCT 11) Phos 4.2(OCT 12)H 5.1(OCT 11) Ca 9.0(OCT 13)L 8.3(OCT 12)9.1(OCT 11) Troponin <0.02(OCT 11) CK MB <0.5(OCT 11) Total CK H 198(OCT 11) MEDICATIONS Scheduled Meds (5):amLODIPine, enoxaparin (Lovenox), metoclopramide (Reglan), pantoprazole (Protonix), sucralfate (Carafate) Unscheduled Meds: None PRN Meds (5):hydrALAZINE, morphine Sulfate, ondansetron, sodium chloride (Saline Flush 0.9%), sodium chloride (Saline Flush 0.9%) One Time Meds: None Continuous Infusions (1):LVP solution with potassium 1,000 mL (D5W 1/2NS + KCL 20mEq/L 1000ml (Premix) 1,000 mL) ASSESSMENT & EXAM: GENERAL: Sitting up in bed in no distress at this time. HEENT: PERRL. NECK: No JVD. CARDIOVASCULAR: Regular rate and rhythm, S1, S2 positive. LUNGS: Clear to auscultation bilateral. GASTROINTESTINAL: Soft, nontender, nondistended, positive bowel sounds. EXTREMITIES: No clubbing, cyanosis or edema. NEUROLOGICAL: No deficits noted. SKIN: no rashes noted. DIAGNOSES & PROBLEMS: Intractable nausea and vomiting Status post laparoscopic gastric sleeve Acute renal failure Morbid obesity Psoriatic arthritis Hypertension PLAN & TREATMENT/HOSPITAL COURSE: Patient is doing much better [...] d/c go [facility] time: 35 min Extracted from: Title: Surgery Staff Author: Precious Gary MD Date: 10/14/17 Surgery Staff Progress Note Precious Abdirahman, M.D. cc: N/V s/p LSG SUBJECTIVE: Doing much better. No further N/V. Tolerating cornelio clears without issue. Good UOP. Ambulating. Minimal, if any, incisional pain RIGHT abdomen at large incision where deep suture is. Wants to go home. OBJECTIVE: Physical Exam: gen - NAD abd - soft, nontender, incisions c/d/i without infection or port site hernia VitalsTmp(F)[id number] 10/14 07:0098.788690/86--96--- 10/14 03:2098.427259/91--96--- 10/13 23:3498.996976/89--97--- 10/13 19:5198.567594/86--99--- 10/13 14:5997.947167/90--100--- 24 Hr Tmax: 98.8F (37.11c) at 10/13 19:51Vital Signs are the last 5 in the past 48 hours. I&ORecordInOutBal 09/1923hr Tot 3111 0 3111 09/1823hr Tot 3076 0 3076 Labs (Last four charted values) WBC 7.2(OCT 12)8.0(OCT 11) Hgb L 13.1(OCT 12)14.1(OCT 11) Hct L 39.6(SEP 18)42.7(OCT 11) Plt 395(SEP 18)H 466(OCT 11) Na 140(OCT 13)141(SEP 18)138(OCT 11) K L 3.4(OCT 13)3.7(SEP 18)3.9(OCT 11) CO2 26(OCT 13)28(SEP 18)24(SEP 17) Cl 104(OCT 13)103(SEP 18)98(SEP 17) Cr 1.17(OCT 13)H 1.65(SEP 18)H 3.10(SEP 17) BUN 10(OCT 13)21(SEP 18)H 27(SEP 17) Glucose Random 75(OCT 13)L 69(SEP 18)94(SEP 17) Mg H 2.6(SEP 18)H 3.0(OCT 11) Phos 4.2(OCT 12)H 5.1(OCT 11) Ca 9.0(OCT 13)L 8.3(OCT 12)9.1(OCT 11) Troponin <0.02(OCT 11) CK MB <0.5(OCT 11) Total CK H 198(OCT 11) ASSESSMENT: 37 year old with 1 day history of persistent nausea and emesis s/p LSG 3. Doing better. Tolerating liquids. Renal function improved. [...] spirometry. 7. Call Precious Gary MD at [phone] for: fever of 101.5 degrees F or higher, any big increase in abdominal pain, any redness/drainage from incisions, any persistent nausea/emesis, or any questions or concerns. Discussed with patient and RN. All questions answered. Extracted from: Title: Clinical Document Author: Abelardo Heath MD Date: 10/13/17 Progress Note - Daily [facility] Completed: Sep, 12:06 by Abelardo Heath MD RM: 309 - 1P, SE [id number] TANG [id number] (: 1980) M Attending: Chaparro Yi MDPhone: Service: Internal Medicine Reason for Admission: ACUTE KIDNEY INSUFFICIENCY, DEHYDRATION Working DRG: Renal failure w/o CC/HALFWAY Code status: Full Code [Ordered]Current diet: Isolation: No Isolation/Standard Precautions Allergies: NKDA SUBJECTIVE 37 yo , morbid obesity S/p Gastric sleeve 10 days ago Readmitted for n/v and dehydration Gastirc sleeve [address] and UGI 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, 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, 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 Past hx HT, psoriasis , arthritis ,morbid obesity OBJECTIVE HEENT: Normal Pulmonary: Lungs clear Cardiac: Normal rate and rhythm, no murmurs Abdomen: Soft, nontender, no masses, good bowel sounds 24hr Labs 10/13 1115 Glucose Lvl75 BUN10 Creatinine Lvl1.17 Sodium Oom995 Potassium Lvl3.4 L Chloride Nuj918 CO226 AGAP13.4 Calcium Lvl9.0 eGFR79 10/12 1214 POC Performing LocatioSee Note Glucose POC71 10/12 0550 S PregNegative [place] still necessary (Yes/No): Line still necessary (Yes/No): VitalsTmp(F)[id number] 10/13 07:1298.361668/85--99--- 10/13 03:0098.957397/81--98--- 10/12 23:1399.336298/94--99--- 10/12 18:4598.785864/74--98--- 10/12 16:0498.583879/016611--- 24 Hr Tmax: 99.2F (37.33c) at 10/12 23:13Vital Signs are the last 5 in the past 48 hours. DateWt(kg)Wt(lb)Ht(cm)Ht(in)Method 10/11 (initial)129.09 284.00Estimated 75.26 69.00Stated I&ORecordInOutBal 09/1923hr Tot 415 0 415 1824hr Tot 3076 0 3076 Medications (13) Active Scheduled Meds (5): 10/14/17 amLODIPine 5 mg PO Daily 10/12/17 enoxaparin (Lovenox) 40 mg SUB-Q thikA07D 10/13/17 metoclopramide (Reglan) 10 mg IVP Q6H [...] IV 5) 1,000 mL 100 ml/hr ASSESSMENT & EXAM Nausea , Vomiting dehydration and renal insufficiency Neg CT and UGI UGI suboptimal study - possible narrowing at distal sleeve PLAN & TREATMENT PPI Carafate Anti emetic Consider endoscopy if not tolerating liquids over next 24-48 hrs
--- OUTSIDE RECORDS SUMMARY | 2019-04-16 09:46 | XMS REPORT | Summary of Care ---
Author Author [facility] Organization [facility] Address Unknown Phone Unavailable Encounter HQ Nithya(FIN) [phone] Date(s): 11/02/17 - 11/03/17 [facility] [address] [place] [address]- [phone] Encounter Diagnosis Calculus of ureter (Final) - 11/10/17 Vomiting, unspecified (Final) - Essential (primary) hypertension (Final) - Calculus of ureter (Discharge Diagnosis) - 11/03/17 Abdominal pain, epigastric (Discharge Diagnosis) - 11/03/17 Acute vomiting (Discharge Diagnosis) - 11/03/17 Discharge Disposition: Home or Self Care Attending Physician: iBnu Amor DO Vital Signs 1 2 3 Most recent to oldest [Reference Range]: 175.26 cm (11/02/17 9:12 PM) Height 97.7 DegF (11/03/17 2:27 AM) 97.8 DegF (11/02/17 9:40 PM) 97.9 DegF (11/02/17 9:12 PM) Temperature Oral [96.4-99.1 DegF] 144/96 mmHg *HI* (11/03/17 2:27 AM) 155/70 mmHg *HI* (11/02/17 9:40 PM) 151/94 mmHg *HI* (11/02/17 9:12 PM) Blood Pressure [90-140/60-90 mmHg] 14 BRMIN (11/03/17 2:27 AM) 18 BRMIN (11/02/17 9:40 PM) 20 BRMIN (11/02/17 9:12 PM) Respiratory Rate [14-20 BRMIN] 78 bpm (11/03/17 2:27 AM) 78 bpm (11/02/17 9:40 PM) 90 bpm (11/02/17 9:12 PM) Peripheral Pulse Rate [60-100 bpm] 118.182 kg (11/02/17 9:12 PM) Weight 38.48 m2 (11/02/17 9:12 PM) Body Mass Index Problem List Condition Effective Dates Status Health Status Informant Arthralgia of Resolved knee(Confirmed) Hypertension(Confirm Active ed) Morbid Active obesity(Confirmed) Morbid Active obesity(Confirmed) Allergies, Adverse Reactions, Alerts Substance Reaction Severity Status NKDA Active Medications famotidine 20 mg, 2 mL, Route: IVP, Drug form: INJ, ONCE, Dosing Weight 118.182, kg, Priori ty: STAT, Start date: 11/02/17 23:34:00 CDT, Stop date: 11/02/17 23:34:00 CDT Notes: (Same as: Pepcid)Can be dilute in 5-10cc NS IVP: Slow IV push over at le ast 2 minutes. Start Date: 11/02/17 Stop Date: 11/02/17 Status: Completed Flomax 0.4 mg, 1 cap, Route: PO, Drug form: CAP, ONCE, Dosing Weight 118.182, kg, Start date: 11/02/17 22:29:00 CDT, Stop date: 11/02/17 22:29:00 CDT Notes: (Same As: Flomax) "Do Not Crush" Start Date: 11/02/17 Stop Date: 11/03/17 Status: Completed GI cocktail 30 mL, Route: PO, Drug Form: SUSP, Dosing Weight 118.182, kg, ONCE, STAT, Start date: 11/02/17 23:34:00 CDT, Stop date: 11/02/17 23:34:00 CDT Notes: G.I. Cocktail=antacid with simethicone 22.5 mL - lidocaine viscous 7.5 mL Start Date: 11/02/17 Stop Date: 11/02/17 Status: Completed morphine Sulfate 4 mg, 1 mL, Route: IVP, Drug form: SOLN, ONCE, Dosing Weight 118.182, kg, Priori ty: STAT, Start date: 11/03/17 0:07:00 CDT, Stop date: 11/03/17 0:07:00 CDT Notes: (Same as:MORPhine Sulfate) Start Date: 11/03/17 Stop Date: 11/03/17 Status: Completed morphine Sulfate 4 mg, 1 mL, Route: IVP, Drug form: SOLN, ONCE, Dosing Weight 118.182, kg, Priori ty: STAT, Start date: 11/02/17 22:29:00 CDT, Stop date: 11/02/17 22:29:00 CDT Notes: (Same as:MORPhine Sulfate) Start Date: 11/02/17 Stop Date: 11/02/17 Status: Completed ondansetron 4 mg, 2 mL, Route: IVP, Drug form: INJ, ONCE, Dosing Weight 118.182, kg, Priorit y: STAT, Start date: 11/02/17 21:15:00 CDT, Stop date: 11/02/17 21:15:00 CDT Notes: (Same as: Zofran) MEDICATION WASTE Product Size: 4 mgProduct Was verónica: ___ mg Start Date: 11/02/17 Stop Date: 11/02/17 Status: Completed Phenergan + Sodium Chloride 0.9% IV 50 mL 25 mg, 1 mL, Route: IVPB, ONCE, Dosing Weight 118.182, kg, Priority: STAT, Start date: 11/03/17 0:08:00 CDT, Stop date: 11/03/17 0:08:00 CDT Notes: Do not give IV push. (Same as: Phenergan) Start Date: 11/03/17 Stop Date: 11/03/17 Status: Completed Phenergan 25 mg oral tablet 25 mg=1 tab, PO, Q6H, PRN Nausea, # 15 tab, 0 Refill(s) Start Date: 11/03/17 Stop Date: 11/07/17 Status: Ordered Saline Flush 0.9% 10 mL, Route: IVP, Drug Form: INJ, Dosing Weight 118.182, kg, PRN, PRN Line Flus h, Start date: 11/02/17 21:15:00 CDT, Duration: 30 day, Stop date: 12/02/17 21:1 4:00 CDT Notes: (Same as: BD Posiflush) Start Date: 11/02/17 Stop Date: 11/03/17 Status: Discontinued Sodium Chloride 0.9% (Bolus) IV 1,000 mL, 1000 ml/hr, Infuse Over: 1 hr, Route: IV, 1,000, Drug form: INJ, ONCE, Priority: STAT, Dosing Weight 118.182 kg, Start date: 11/02/17 21:15:00 CDT, St op date: 11/02/17 21:15:00 CDT Start Date: 11/02/17 Stop Date: 11/02/17 Status: Completed Ultram 50 mg oral tablet 50 mg, 1 tab, Route: PO, Drug form: TAB, ONCE, Dosing Weight 118.182, kg, Priori ty: STAT, Start date: 11/03/17 0:08:00 CDT, Stop date: 11/03/17 0:08:00 CDT Notes: Not to exceed 400mg/day. (Same As: Ultram) Start Date: 11/03/17 Stop Date: 11/03/17 Status: Completed Ultram 50 mg oral tablet 50 mg=1 tab, PO, Q4H, PRN pain, X 3 day, # 20 tab, 0 Refill(s) Start Date: 11/03/17 Stop Date: 11/06/17 Status: Completed Zofran 4 mg, 2 mL, Route: IVP, Drug form: INJ, ONCE, Dosing Weight 118.182, kg, Priorit y: STAT, Start date: 11/02/17 22:29:00 CDT, Stop date: 11/02/17 22:29:00 CDT Notes: (Same as: Zofran) MEDICATION WASTE Product Size: 4 mgProduct Was verónica: ___ mg Start Date: 11/02/17 Stop Date: 11/02/17 Status: Completed Results ELECTROLYTES Most recent to 1 oldest [Reference Range]: Sodium Lvl [135-145 138 mEq/L mEq/L] (11/02/17 10:09 PM) Potassium Lvl 3.4 mEq/L [3.5-5.1 mEq/L] *LOW* (11/02/17 10:09 PM) Chloride Lvl [95-109 101 mEq/L mEq/L] (11/02/17 10:09 PM) CO2 [24-32 mEq/L] 29 mEq/L (11/02/17 10:09 PM) AGAP [10.0-20.0 11.4 mEq/L mEq/L] (11/02/17 10:09 PM) CHEM PANEL Most recent to 1 oldest [Reference Range]: Creatinine Lvl 1.46 mg/dL [0.50-1.40 mg/dL] *HI* (11/02/17 10:09 PM) eGFR 70 mL/min/1.73m2 1 *NA* (11/02/17:09 PM) BUN [7-22 mg/dL] 4 mg/dL *LOW* (11/02/17: PM) B/C Ratio [6-25] 3 *LOW* (11/02/17: PM) Glucose Lvl [70-99 77 mg/dL mg/dL] (11/02/17:09 PM) Total Protein 8.2 g/dL [6.4-8.4 g/dL] (11/02/17 10:09 PM) Albumin Lvl [3.5-5.0 4.1 g/dL g/dL] (11/02/17:09 PM) Globulin [2.7-4.2 4.1 g/dL g/dL] (11/02/17 10:09 PM) A/G Ratio [0.7-1.6] 1.0 (11/02/17 10:09 PM) Calcium Lvl 8.8 mg/dL [8.5-10.5 mg/dL] (11/02/17 10:09 PM) ALT [0-65 unit/L] 32 unit/L (11/02/17 10:09 PM) AST [0-37 unit/L] 16 unit/L (11/02/17 10:09 PM) Alk Phos [39-136 64 unit/L unit/L] (11/02/17 10:09 PM) Bili Total [0.2-1.3 0.6 mg/dL mg/dL] (11/02/17 10:09 PM) Lipase Lvl [73-393 164 unit/L unit/L] (11/02/17 10:09 PM) 1Result Comment: The eGFR is calculated using [...] be mul tiplied by the estimated BMI. URINE AND STOOL Most recent to 1 oldest [Reference Range]: UA Turbidity [Clear] Clear (11/02/17 10:09 PM) UA Color [Yellow] Yellow *NA* (11/02/17 10:09 PM) UA pH [5.0-8.0] 5.0 (11/02/17 10:09 PM) UA Spec Grav 1.014 [<=1.030] (11/02/17 10:09 PM) UA Glucose [Negative Negative mg/dL mg/dL] *NA* (11/02/17 10:09 PM) UA Blood [Negative] Moderate *ABN* (11/02/17 10:09 PM) UA Ketones [Negative 80 mg/dL mg/dL] *ABN* (11/02/17 10:09 PM) UA Protein [Negative 30 mg/dL mg/dL] *ABN* (11/02/17 10:09 PM) UA Urobilinogen <=1.0 mg/dL [0.1-1.0 mg/dL] *NA* (11/02/17 10:09 PM) UA Bili [Negative] Negative *NA* (11/02/17 10:09 PM) UA Leuk Est Negative [Negative] (11/02/17 10:09 PM) UA Nitrite Negative [Negative] (11/02/17 10:09 PM) UA WBC [0-5 /HPF] 4 /HPF (11/02/17 10:09 PM) UA RBC [0-2 /HPF] 5 /HPF *HI* (11/02/17 10:09 PM) UA Sq Epi [Few /LPF] Occasional /LPF *NA* (11/02/17 10:09 PM) UA Amorph Michelle [None Occasional /HPF Seen /HPF] *NA* (11/02/17 10:09 PM) UA Mucus [None Seen Few /LPF /LPF] *NA* (11/02/17 10:09 PM) HEMATOLOGY Most recent to 1 oldest [Reference Range]: WBC [3.7-10.4 K/CMM] 7.0 K/CMM (11/02/17 10:09 PM) RBC [4.70-6.10 4.70 M/CMM M/CMM] (11/02/17 10:09 PM) Hgb [14.0-18.0 g/dL] 12.9 g/dL *LOW* (11/02/17 10:09 PM) Hct [42.0-54.0 %] 39.3 % *LOW* (11/02/17:09 PM) MCV [80.0-94.0 fL] 83.5 fL (11/02/17 10:09 PM) MCH [27.0-31.0 pg] 27.4 pg (11/02/17 10:09 PM) MCHC [32.0-36.0 32.8 g/dL g/dL] (11/02/17 10:09 PM) RDW [11.5-14.5 %] 14.1 % (11/02/17 10:09 PM) MPV [7.4-10.4 fL] 8.3 fL (11/02/17 10:09 PM) Platelet [133-450 327 K/CMM K/CMM] (11/02/17 10:09 PM) Segs [45.0-75.0 %] 47.8 % (11/02/17 10:09 PM) Lymphocytes 36.9 % [20.0-40.0 %] (11/02/17 10:09 PM) Monocytes [2.0-12.0 11.6 % %] (11/02/17 10:09 PM) Eosinophils [0.0-4.0 2.9 % %] (11/02/17 10:09 PM) Basophils [0.0-1.0 0.8 % %] (11/02/17 10:09 PM) Segs-Bands # 3.3 K/CMM [1.5-8.1 K/CMM] (11/02/17 10:09 PM) Lymphocytes # 2.6 K/CMM [1.0-5.5 K/CMM] (11/02/17 10:09 PM) Monocytes # [0.0-0.8 0.8 K/CMM K/CMM] (11/02/17 10:09 PM) Eosinophils # 0.2 K/CMM [0.0-0.5 K/CMM] (11/02/17 10:09 PM) Basophils # [0.0-0.2 0.1 K/CMM K/CMM] (11/02/17 10:09 PM) Immunizations No data available for this section [...]
--- OUTSIDE RECORDS SUMMARY | 2019-04-16 09:46 | XMS REPORT | Summary of Care ---
Author Author [facility] Organization [facility] Address Unknown Phone Unavailable Encounter HQ Nithya(SATISH) [id number] Date(s): 09/30/17 - 10/02/17 [facility] [id number] [place] [address]- [phone] Encounter Diagnosis Morbid (severe) obesity due to excess calories (Final) - Morbid (severe) obesity due to excess calories (Final) - 10/09/17 Type 2 diabetes mellitus without complications (Final) - Essential (primary) hypertension (Final) - Psoriasis, unspecified (Final) - Unspecified osteoarthritis, unspecified site (Final) - Diaphragmatic hernia without obstruction or gangrene (Final) - Body mass index (BMI) 45.0-49.9, adult (Final) - Discharge Disposition: Home or Self Care Attending Physician: Precious Gary MD Admitting Physician: Precious Gary MD Referring Physician: Precious Gary MD Vital Signs 1 2 3 Most recent to oldest [Reference Range]: 172.7 cm (09/30/17 5:51 PM) 172.72 cm (09/25/17 11:32 AM) Height 98.0 DegF (10/02/17 8:00 AM) 98.4 DegF (10/02/17 4:00 AM) 98.6 DegF (10/01/17 11:36 PM) Temperature Oral [96.4-99.1 DegF] 160/91 mmHg *HI* (10/02/17 8:00 AM) 147/90 mmHg *HI* (10/02/17 4:00 AM) 158/74 mmHg *HI* (10/02/17 1:00 AM) Blood Pressure [90-140/60-90 mmHg] 18 BRMIN (10/02/17 8:04 AM) 18 BRMIN (10/02/17 8:00 AM) 16 BRMIN (10/01/17 7:55 PM) Respiratory Rate [14-20 BRMIN] 83 bpm (10/02/17 8:00 AM) 96 bpm (10/01/17 7:55 PM) 90 bpm (10/01/17 3:33 PM) Peripheral Pulse Rate [60-100 bpm] 137.841 kg (09/30/17 5:51 PM) 137.841 kg (09/30/17 9:48 AM) Weight 46.22 m2 (09/30/17 5:51 PM) 46.21 m2 (09/30/17 9:48 AM) Body Mass Index Problem List Condition Effective Dates Status Health Status Informant Arthralgia of Resolved knee(Confirmed) Hypertension(Confirm Active ed) Morbid Active obesity(Confirmed) Morbid Active obesity(Confirmed) Allergies, Adverse Reactions, Alerts Substance Reaction Severity Status NKDA Active Medications acetaminophen (ANES) 10 mg Route: IV, Drug form: INJ, Start date: 09/30/17 13:08:00 ENTRY LEVEL STAFF ACCOUNTANT, Stop date: 8 14:08:00 ENTRY LEVEL STAFF ACCOUNTANT Start Date: 09/30/17 Stop Date: 09/30/17 Status: Completed acetaminophen-hydrocodone 325 mg-10 mg/15 mL oral solution 15 ml, PO, Q6H, PRN for pain, X 7 day, # 400 mL, 0 Refill(s) Start Date: 10/01/17 Stop Date: 10/08/17 Status: Completed acetaminophen-hydrocodone 325 mg-7.5 mg/15 mL oral solution 15 mL, Route: PO, Drug Form: SOLN, Dosing Weight 137.841, kg, Q6H, PRN Pain Scor e 4-6, Start date: 09/30/17 14:58:00 ENTRY LEVEL STAFF ACCOUNTANT, Duration: 30 day, Stop date: 10/30/17 14:57:00 CDT Notes: Do not exceed 4gm/day of acetaminophen. (Same as: [place] 325/7.5) Start Date: 09/30/17 Stop Date: 10/01/17 Status: Discontinued amLODIPine 10 mg, 2 tab, Route: PO, Drug form: TAB, Daily, Dosing Weight 137.841, kg, Start date: 10/01/17 9:00:00 ENTRY LEVEL STAFF ACCOUNTANT, Duration: 30 day, Stop date: 10/30/17 9:00:00 CDT Notes: (Same as: Harleen) Start Date: 10/01/17 Stop Date: 10/02/17 Status: Discontinued amLODIPine 5 mg oral tablet 5 mg=1 tab, PO, Daily, 0 Refill(s) Start Date: 10/01/17 Status: Ordered ANES acetaminophen 1,000 mg, Route: IVPB, Drug form: INJ, ONCE, Dosing Weight 137.841, kg, PRN Pain Score 1-3, Start date: 09/30/17 15:05:00 ENTRY LEVEL STAFF ACCOUNTANT Start Date: 09/30/17 Stop Date: 10/01/17 Status: Discontinued ANES albuterol 0.083% inhalation solution 2.49 mg, Route: NEB, Q20Min, Dosing Weight 137.841, kg, PRN Wheezing, Priority: STAT, Start date: 09/30/17 15:05:00 ENTRY LEVEL STAFF ACCOUNTANT, Duration: 30 day, Stop date: 10/30/17 1 6:04:00 CDT Start Date: 09/30/17 Stop Date: 10/01/17 Status: Discontinued ANES diphenhydrAMINE 12.5 mg, Route: IVP, Drug form: INJ, Q6H, Dosing Weight 137.841, kg, PRN Itching , Start date: 09/30/17 15:05:00 ENTRY LEVEL STAFF ACCOUNTANT, Duration: 30 day, Stop date: 10/30/17 15:04 :00 CDT Start Date: 09/30/17 Stop Date: 10/01/17 Status: Discontinued ANES fentaNYL 50 microgram, Route: IVP, Q5Min, Dosing Weight 137.841, kg, PRN Pain Score 7-10, Priority: Routine, Start date: 09/30/17 15:05:00 ENTRY LEVEL STAFF ACCOUNTANT, Duration: 2 doses or time s, Stop date: Limited # of times Start Date: 09/30/17 Stop Date: 10/01/17 Status: Discontinued ANES fentaNYL 25 microgram, Route: IVP, Q5Min, Dosing Weight 137.841, kg, PRN Pain Score 4-6, Priority: Routine, Start date: 09/30/17 15:05:00 ENTRY LEVEL STAFF ACCOUNTANT, Duration: 4 doses or times , Stop date: Limited # of times Start Date: 09/30/17 Stop Date: 10/01/17 Status: Discontinued ANES flumazenil 0.2 mg, Route: IVP, PRN, Dosing Weight 137.841, kg, PRN Benzodiazepine Reversal, Initial dose, Start date: 09/30/17 15:05:00 ENTRY LEVEL STAFF ACCOUNTANT, Duration: 30 day, Stop date: 0 10/30/17 16:04:00 CDT Start Date: 09/30/17 Stop Date: 10/01/17 Status: Discontinued ANES HYDROmorphone 0.5 mg, Route: IVP, Q5Min, Dosing Weight 137.841, kg, PRN Pain Score 7-10, Start date: 09/30/17 15:05:00 ENTRY LEVEL STAFF ACCOUNTANT, Duration: 4 doses or times, Stop date: Limited # of times Start Date: 09/30/17 Stop Date: 10/01/17 Status: Discontinued ANES meperidine 12.5 mg, Route: IVP, Q30Min, Dosing Weight 137.841, kg, PRN Other -See Comment, For shivering, Start date: 09/30/17 15:05:00 ENTRY LEVEL STAFF ACCOUNTANT, Duration: 2 doses or times, St op date: Limited # of times Start Date: 09/30/17 Stop Date: 10/01/17 Status: Discontinued ANES naloxone 0.4 mg, Route: IVP, Q2MIN, Dosing Weight 137.841, kg, PRN Narcotic Reversal, Sta rt date: 09/30/17 15:05:00 ENTRY LEVEL STAFF ACCOUNTANT, Duration: 8 doses or times, Stop date: Limited # of times Start Date: 09/30/17 Stop Date: 10/01/17 Status: Discontinued ANES naloxone 0.1 mg, Route: SUB-Q, Q6H, Dosing Weight 137.841, kg, PRN Itching, Start date: 0 09/30/17 15:05:00 ENTRY LEVEL STAFF ACCOUNTANT, Duration: 30 day, Stop date: 10/30/17 15:04:00 CDT Start Date: 09/30/17 Stop Date: 10/01/17 Status: Discontinued ANES ondansetron 4 mg, Route: IVP, ONCE, Dosing Weight 137.841, kg, PRN Nausea & Vomiting, Start date: 09/30/17 15:05:00 ENTRY LEVEL STAFF ACCOUNTANT Start Date: 09/30/17 Stop Date: 10/01/17 Status: Discontinued ANES oxyCODONE 10 mg, Route: NG, Drug form: LIQ, Q4H, Dosing Weight 137.841, kg, PRN Pain Score 7-10, Start date: 09/30/17 15:05:00 ENTRY LEVEL STAFF ACCOUNTANT, Duration: 30 day, Stop date: 10/30/17 15:04:00 CDT Start Date: 09/30/17 Stop Date: 10/01/17 Status: Discontinued ANES oxyCODONE 5 mg, Route: PO, Drug form: TAB, Q4H, Dosing Weight 137.841, kg, PRN Pain Score 4-6, Start date: 09/30/17 15:05:00 ENTRY LEVEL STAFF ACCOUNTANT, Duration: 30 day, Stop date: 10/30/17 15 :04:00 CDT Start Date: 09/30/17 Stop Date: 10/01/17 Status: Discontinued ANES oxyCODONE 10 mg, Route: PO, Drug form: TAB, Q4H, Dosing Weight 137.841, kg, PRN Pain Score 7-10, Start date: 09/30/17 15:05:00 ENTRY LEVEL STAFF ACCOUNTANT, Duration: 30 day, Stop date: 10/30/17 15:04:00 CDT Start Date: 09/30/17 Stop Date: 10/01/17 Status: Discontinued ANES oxyCODONE 5 mg, Route: NG, Drug form: LIQ, Q4H, Dosing Weight 137.841, kg, PRN Pain Score 4-6, Start date: 09/30/17 15:05:00 ENTRY LEVEL STAFF ACCOUNTANT, Duration: 30 day, Stop date: 10/30/17 15 :04:00 CDT Start Date: 09/30/17 Stop Date: 10/01/17 Status: Discontinued ANES promethazine 6.25 mg, Route: IVPB, ONCE, Dosing Weight 137.841, kg, PRN Nausea & Vomiting, Start date: 09/30/17 15:05:00 ENTRY LEVEL STAFF ACCOUNTANT Start Date: 09/30/17 Stop Date: 10/01/17 Status: Discontinued ANES scopolamine 1.5 mg transdermal film 1 patch, Route: TOP, Drug Form: ERFILM, Dosing Weight 137.841, kg, ONCE, Apply b ehind ear. Avoid use in elderly., Start date: 09/30/17 15:05:00 ENTRY LEVEL STAFF ACCOUNTANT, Stop date: 09/30/17 15:05:00 ENTRY LEVEL STAFF ACCOUNTANT Start Date: 09/30/17 Stop Date: 09/30/17 Status: Completed cefOXitin (ANES) 1000 mg Route: IV, Drug form: INJ, Start date: 09/30/17 12:50:00 ENTRY LEVEL STAFF ACCOUNTANT, Stop date: 8 13:50:00 ENTRY LEVEL STAFF ACCOUNTANT Start Date: 09/30/17 Stop Date: 09/30/17 Status: Completed DULoxetine 30 mg, 1 cap, Route: PO, Drug form: DRC, Daily, Dosing Weight 137.841, kg, Start date: 10/01/17 9:00:00 ENTRY LEVEL STAFF ACCOUNTANT, Duration: 30 day, Stop date: 10/30/17 9:00:00 CDT Notes: (Same as: Cymbalta) (Do Not Crush) Start Date: 10/01/17 Stop Date: 10/02/17 Status: Discontinued DULoxetine 30 mg oral delayed release capsule 30 mg=1 cap, PO, Daily, 0 Refill(s) Start Date: 10/01/17 Status: Ordered ePHEDrine (ANES) Route: IV, Drug form: INJ, ONCE, Stop date: 09/30/17 13:51:00 ENTRY LEVEL STAFF ACCOUNTANT Start Date: 09/30/17 Stop Date: 09/30/17 Status: Completed famotidine 20 mg, 2 mL, Route: IVP, Drug form: INJ, Q12H, Dosing Weight 137.841, kg, Start date: 09/30/17 21:00:00 ENTRY LEVEL STAFF ACCOUNTANT, Duration: 30 day, Stop date: 10/30/17 9:00:00 CDT Notes: (Same as: Pepcid)Can be dilute in 5-10cc NS IVP: Slow IV push over at le ast 2 minutes. Start Date: 09/30/17 Stop Date: 10/02/17 Status: Discontinued fentaNYL (ANES) Route: IV, Drug form: INJ, ONCE, Stop date: 09/30/17 13:36:00 ENTRY LEVEL STAFF ACCOUNTANT Start Date: 09/30/17 Stop Date: 09/30/17 Status: Completed glycopyrrolate (ANES) Route: IV, Drug form: INJ, ONCE, Stop date: 09/30/17 14:57:00 ENTRY LEVEL STAFF ACCOUNTANT Start Date: 09/30/17 Stop Date: 09/30/17 Status: Completed heparin 5,000 unit, Route: SUB-Q, ONCE, Dosing Weight 140.909, kg, Start date: 09/30/17 9:33:00 ENTRY LEVEL STAFF ACCOUNTANT, Stop date: 09/30/17 9:33:00 ENTRY LEVEL STAFF ACCOUNTANT Start Date: 09/30/17 Stop Date: 09/30/17 Status: Discontinued hydrALAZINE 10 mg, 0.5 mL, Route: IVP, Drug form: INJ, Q6H, Dosing Weight 137.841, kg, PRN H ypertension, Start date: 09/30/17 18:34:00 ENTRY LEVEL STAFF ACCOUNTANT, Duration: 30 day, Stop date: 12/12 18:33:00 CDT Notes: (Same as: Apresoline)Push over 5 minutes Start Date: 09/30/17 Stop Date: 10/02/17 Status: Discontinued hydrALAZINE 5 mg, Route: IVP, ONCE, Dosing Weight 137.841, kg, Start date: 09/30/17 15:07:00 ENTRY LEVEL STAFF ACCOUNTANT, Stop date: 09/30/17 15:07:00 ENTRY LEVEL STAFF ACCOUNTANT Start Date: 09/30/17 Stop Date: 09/30/17 Status: Completed ketOROLAC 15 mg, 1 mL, Route: IVP, Drug form: INJ, Q6H, Dosing Weight 137.841, kg, Start d ate: 10/01/17 12:00:00 ENTRY LEVEL STAFF ACCOUNTANT, Stop date: 10/03/17 6:00:00 ENTRY LEVEL STAFF ACCOUNTANT Notes: (Same as:Toradol) IV bolus must be given >15 seconds. Give IM administration slowly and deeply into the muscle. Not for use > 4 days. Start Date: 10/01/17 Stop Date: 10/02/17 Status: Discontinued ketOROLAC 15 mg, Route: IVP, Drug form: INJ, Q6H, Dosing Weight 137.841, kg, Start date: 0 10/01/17 12:00:00 ENTRY LEVEL STAFF ACCOUNTANT, Duration: 4 day, Stop date: 10/05/17 6:00:00 CDT Start Date: 10/01/17 Stop Date: 10/01/17 Status: Canceled labetalol 10 mg, 2 mL, Route: IVP, Drug form: INJ, ONCE, Dosing Weight 137.841, kg, Start date: 09/30/17 15:45:00 ENTRY LEVEL STAFF ACCOUNTANT, Stop date: 09/30/17 15:45:00 ENTRY LEVEL STAFF ACCOUNTANT Notes: (Same as: Normodyne, Trandate)Push over 2 minutes Give bolus over 2-3 mi nutes. Start Date: 09/30/17 Stop Date: 09/30/17 Status: Completed Lactated Ringers Injection IV (ANES) 1000 mL Route: IV, Total Volume: 1,000, Start date: 09/30/17 12:39:00 ENTRY LEVEL STAFF ACCOUNTANT, Stop date: 13:39:00 ENTRY LEVEL STAFF ACCOUNTANT Start Date: 09/30/17 Stop Date: 09/30/17 Status: Completed Lactated Ringers Injection IV 1000 mL 1,000 mL, Rate: 25 ml/hr, Infuse over: 40 hr, Route: IV, Dosing Weight 140.909 k g, Total Volume: 1,000, Start date: 09/30/17 9:32:00 ENTRY LEVEL STAFF ACCOUNTANT, Duration: 30 day, Stop date: 10/30/17 9:31:00 CDT, 2.64, m2 Start Date: 09/30/17 Stop Date: 09/30/17 Status: Discontinued lidocaine (ANES) Route: IV, Drug form: INJ, ONCE, Stop date: 09/30/17 13:30:00 ENTRY LEVEL STAFF ACCOUNTANT Start Date: 09/30/17 Stop Date: 09/30/17 Status: Completed lisinopril 40 mg, 2 tab, Route: PO, Drug form: TAB, Daily, Dosing Weight 137.841, kg, Start date: 10/01/17 9:00:00 ENTRY LEVEL STAFF ACCOUNTANT, Duration: 30 day, Stop date: 10/30/17 9:00:00 CDT Notes: (Same as: Prinivil, Zestril) Start Date: 10/01/17 Stop Date: 10/02/17 Status: Discontinued lisinopril 20 mg oral tablet 40 mg=2 tab, PO, Daily, 0 Refill(s) Start Date: 10/01/17 Stop Date: 10/11/17 Status: Completed Lovenox 40 mg, 0.4 mL, Route: SUB-Q, Drug form: INJ, [id number], Dosing Weight 137.841, kg , Start date: 10/01/17 10:00:00 ENTRY LEVEL STAFF ACCOUNTANT, Duration: 30 day, Stop date: 10/30/17 10:00 :00 CDT Notes: (Same as: Lovenox) Start Date: 10/01/17 Stop Date: 10/02/17 Status: Discontinued Lyrica 75 mg, 1 cap, Route: PO, Drug form: CAP, Q12H, Dosing Weight 137.841, kg, Start date: 09/30/17 21:00:00 ENTRY LEVEL STAFF ACCOUNTANT, Duration: 30 day, Stop date: 10/30/17 9:00:00 CDT Notes: (Same as: Lyrica) Start Date: 09/30/17 Stop Date: 10/02/17 Status: Discontinued metoclopramide 10 mg, 2 mL, Route: IVP, Drug form: SOLN, Q8H, Dosing Weight 137.841, kg, Start date: 09/30/17 16:00:00 ENTRY LEVEL STAFF ACCOUNTANT, Duration: 30 day, Stop date: 10/30/17 8:00:00 CDT Notes: (Same as: Reglan) Start Date: 09/30/17 Stop Date: 10/02/17 Status: Discontinued midazolam (ANES) Route: IV, Drug form: SOLN, ONCE, Stop date: 09/30/17 13:30:00 ENTRY LEVEL STAFF ACCOUNTANT Start Date: 09/30/17 Stop Date: 09/30/17 Status: Completed morphine 1 mg/ml CIO (30 mg/30 mL) INJ Syringe 30 mg 30 mg, 30 mL, Route: IV, Initial Loading Dose: 2 mg, CIO Dose: 1 mg, CIO Lockou t: 10 minutes, Continuous Basal Rate: 0 mg, 4 Hour Limit (In MG): 30, Drug Form: INJ, Continuous, Start date: 09/30/17 14:59:00 ENTRY LEVEL STAFF ACCOUNTANT, Duration: 30 day, Stop date: 10/30/17... Notes: Dose: Delay: Basal rate: 4hr limit:( Same as:Rapi-Ject) Start Date: 09/30/17 Stop Date: 10/01/17 Status: Discontinued morphine Sulfate 6 mg, 3 mL, Route: PO, Drug form: SOLN, Q4H, Dosing Weight 137.841, kg, PRN Pain Score 7-10, Start date: 10/01/17 9:07:00 ENTRY LEVEL STAFF ACCOUNTANT, Duration: 30 day, Stop date: 01/12 9:06:00 CDT Notes: (Same as:MORPhine Sulfate) Start Date: 10/01/17 Stop Date: 10/02/17 Status: Discontinued naloxone 0.04 mg, 0.1 mL, Route: IVP, Drug form: INJ, Q2MIN, Dosing Weight 137.841, kg, P RN Narcotic Reversal, Start date: 09/30/17 14:59:00 ENTRY LEVEL STAFF ACCOUNTANT, Duration: 30 day, Stop date: 10/30/17 15:58:00 CDT Notes: Same as Narcan Start Date: 09/30/17 Stop Date: 10/02/17 Status: Discontinued neostigmine (ANES) Route: IV, Drug form: INJ, ONCE, Stop date: 09/30/17 14:57:00 ENTRY LEVEL STAFF ACCOUNTANT Start Date: 09/30/17 Stop Date: 09/30/17 Status: Completed Ofirmev 1,000 mg, 31.23 mL, Route: PO, Drug form: LIQ, Q6H, Dosing Weight 137.841, kg, P RN Pain 1-3/Temp > 100.4 F, for > or=50 kg, Start date: 10/01/17 9:05:00 ENTRY LEVEL STAFF ACCOUNTANT, Duration: 30 day, Stop date: 10/31/17 9:04:00 CDT Notes: Max ywsdyexsyfnbj=1192ck/day (4 gm/day). (Same as: Tylenol) Start Date: 10/01/17 Stop Date: 10/02/17 Status: Discontinued ondansetron 4 mg, 2 mL, Route: IVP, Drug form: INJ, Q12H, Dosing Weight 137.841, kg, PRN Tha sea & Vomiting, Start date: 09/30/17 14:51:00 ENTRY LEVEL STAFF ACCOUNTANT, Duration: 30 day, Stop date: 10/30/17 14:50:00 CDT Notes: (Same as: Leslie) MEDICATION WASTE Product Size: 4 mgProduct Was verónica: ___ mg Start Date: 09/30/17 Stop Date: 10/02/17 Status: Discontinued ondansetron (ANES) Route: IV, Drug form: INJ, ONCE, Stop date: 09/30/17 13:41:00 ENTRY LEVEL STAFF ACCOUNTANT Start Date: 09/30/17 Stop Date: 09/30/17 Status: Completed phenylephrine (ANES) Route: IV, Drug form: INJ, ONCE, Stop date: 09/30/17 13:46:00 ENTRY LEVEL STAFF ACCOUNTANT Start Date: 09/30/17 Stop Date: 09/30/17 Status: Completed pregabalin 75 mg oral capsule 75 mg=1 cap, PO, Q12H, 0 Refill(s) Start Date: 10/01/17 Stop Date: 10/11/17 Status: Completed promethazine + Sodium Chloride 0.9% IV 50 mL 12.5 mg, 0.5 mL, Route: IVPB, Q4H, Dosing Weight 137.841, kg, PRN Nausea & Vomiting, Start date: 09/30/17 14:51:00 ENTRY LEVEL STAFF ACCOUNTANT, Duration: 30 day, Stop date: 10/30 14:50:00 CDT Notes: Do not give IV push. (Same as: Phenergan) Start Date: 09/30/17 Stop Date: 10/02/17 Status: Discontinued propofol (ANES) Route: IV, Drug form: INJ, ONCE, Stop date: 09/30/17 13:36:00 ENTRY LEVEL STAFF ACCOUNTANT Start Date: 09/30/17 Stop Date: 09/30/17 Status: Completed rocuronium (ANES) Route: IV, Drug form: INJ, ONCE, Stop date: 09/30/17 13:36:00 ENTRY LEVEL STAFF ACCOUNTANT Start Date: 09/30/17 Stop Date: 09/30/17 Status: Completed scopolamine 1 patch, Route: TOP, Drug form: ERFILM, PRE OP, Start date: 09/30/17 19:00:00 CS T, Duration: 1 day, Stop date: 10/01/17 18:59:00 ENTRY LEVEL STAFF ACCOUNTANT Notes: "Remove old patch before application of new patch" Change patch every 72 hours (Same as: Transderm-Scop) Start Date: 09/30/17 Stop Date: 10/02/17 Status: Discontinued Sodium Chloride 0.9% IV 1,000 mL 1,000 mL, Rate: 125 ml/hr, Infuse over: 8 hr, Route: IV, Dosing Weight 137.841 k g, Total Volume: 1,000, Start date: 10/01/17 9:07:00 ENTRY LEVEL STAFF ACCOUNTANT, Duration: 30 day, Stop date: 10/31/17 9:06:00 CDT, 2.61, m2 Start Date: 10/01/17 Stop Date: 10/02/17 Status: Discontinued Sodium Chloride 0.9% IV 1,000 mL 1,000 mL, Rate: 125 ml/hr, Infuse over: 8 hr, Route: IV, Dosing Weight 137.841 k g, Total Volume: 1,000, Start date: 09/30/17 14:51:00 ENTRY LEVEL STAFF ACCOUNTANT, Duration: 30 day, Sto p date: 10/30/17 14:50:00 CDT, 2.61, m2 Start Date: 09/30/17 Stop Date: 10/01/17 Status: Discontinued Sodium Chloride 0.9% IV 984.8 mL + M.V.I.-12 10 mL Daily + folic acid IV 1 mg Da king + thiamine IV 5 984.8 mL, Rate: 100 ml/hr, Infuse over: 10 hr, Route: IV, Dosing Weight 137.841 kg, Total Volume: 1,000, Start date: 10/01/17 9:07:00 ENTRY LEVEL STAFF ACCOUNTANT, Duration: 10 hr, Stop date: 10/01/17 19:06:00 ENTRY LEVEL STAFF ACCOUNTANT, 2.61, m2 Start Date: 10/01/17 Stop Date: 10/01/17 Status: Completed Transderm-Scop 1.5 mg transdermal film, extended release 1 patch, Route: TOP, Drug Form: ERFILM, Dosing Weight 140.909, kg, PRE OP, Start date: 09/30/17 10:00:00 ENTRY LEVEL STAFF ACCOUNTANT, Duration: 30 day, Stop date: 10/30/17 10:59:00 CDT Start Date: 09/30/17 Stop Date: 09/30/17 Status: Voided With Results Zofran 4 mg oral tablet 4 mg=1 tab, PO, Q6H, PRN Nausea/Vomiting, please crush before giving, # 30 tab, 0 Refill(s), Pharmacy: [facility]/pharmacy #[id number] Start Date: 10/02/17 Stop Date: 10/14/17 Status: Discontinued Results BLOOD BANK RESULTS 1 2 3 Most recent to oldest [Reference Range]: O POS *Unknown* (09/25/17 12:35 PM) ABO/Rh Negative (09/25/17 12:35 PM) Antibody Scrn ELECTROLYTES 1 2 3 Most recent to oldest [Reference Range]: 135 mEq/L (10/01/17 6:23 AM) 135 mEq/L (09/30/17 4:53 PM) 140 mEq/L (09/25/17 12:35 PM) Sodium Lvl [135-145 mEq/L] 3.8 mEq/L (10/01/17 6:23 AM) 4.4 mEq/L (09/30/17 4:53 PM) 4.1 mEq/L (09/25/17 12:35 PM) Potassium Lvl [3.5-5.1 mEq/L] 101 mEq/L (10/01/17 6:23 AM) 100 mEq/L (09/30/17 4:53 PM) 102 mEq/L (09/25/17 12:35 PM) Chloride Lvl [95-109 mEq/L] 24 mEq/L (10/01/17:23 AM) 26 mEq/L (09/30/17 4:53 PM) 28 mEq/L (09/25/17 12:35 PM) CO2 [24-32 mEq/L] 13.8 mEq/L (10/01/17:23 AM) 13.4 mEq/L (09/30/17 4:53 PM) 14.1 mEq/L (09/25/17 12:35 PM) AGAP [10.0-20.0 mEq/L] CHEM PANEL 1 2 3 Most recent to oldest [Reference Range]: 1.06 mg/dL (10/01/17 6:23 AM) 1.38 mg/dL (09/30/17 4:53 PM) 1.10 mg/dL (09/25/17 12:35 PM) Creatinine Lvl [0.50-1.40 mg/dL] 89 mL/min/1.73m2 1 *NA* (10/01/17 6:23 AM) 65 mL/min/1.73m2 2 *NA* (09/30/17 4:53 PM) 85 mL/min/1.73m2 3 *NA* (09/25/17 12:35 PM) eGFR 8 mg/dL (10/01/17 6:23 AM) 13 mg/dL (09/30/17 4:53 PM) 9 mg/dL (09/25/17 12:35 PM) BUN [7-22 mg/dL] 8 (09/25/17 12:35 PM) B/C Ratio [6-25] 108 mg/dL *HI* (10/01/17 6:23 AM) 146 mg/dL *HI* (09/30/17 4:53 PM) 94 mg/dL (09/25/17 12:35 PM) Glucose Lvl [70-99 mg/dL] 8.1 g/dL (09/25/17 12:35 PM) Total Protein [6.4-8.4 g/dL] 4.1 g/dL (09/25/17 12:35 PM) Albumin Lvl [3.5-5.0 g/dL] 4.0 g/dL (09/25/17 12:35 PM) Globulin [2.7-4.2 g/dL] 1.0 (09/25/17 12:35 PM) A/G Ratio [0.7-1.6] 8.9 mg/dL (10/01/17 6:23 AM) 8.8 mg/dL (09/30/17 4:53 PM) 8.8 mg/dL (09/25/17 12:35 PM) Calcium Lvl [8.5-10.5 mg/dL] 23 unit/L (09/25/17 12:35 PM) ALT [0-65 unit/L] 13 unit/L (09/25/17 12:35 PM) AST [0-37 unit/L] 60 unit/L (09/25/17 12:35 PM) Alk Phos [39-136 unit/L] 0.4 mg/dL (09/25/17 12:35 PM) Bili Total [0.2-1.3 mg/dL] 1Result Comment: The eGFR is calculated using [...] be mul tiplied by the estimated BMI. SPECIAL CHEMISTRY 1 2 3 Most recent to oldest [Reference Range]: 6.4 % *HI* (09/25/17 12:35 PM) Hgb A1C [<=5.6 %] HEMATOLOGY 1 2 3 Most recent to oldest [Reference Range]: 12.9 K/CMM *HI* (10/01/17 6:23 AM) 16.0 K/CMM *HI* (09/30/17 4:53 PM) 4.9 K/CMM (09/25/17 12:35 PM) WBC [3.7-10.4 K/CMM] 4.75 M/CMM (10/01/17 6:23 AM) 4.91 M/CMM (09/30/17 4:53 PM) 4.79 M/CMM (09/25/17 12:35 PM) RBC [4.70-6.10 M/CMM] 13.2 g/dL *LOW* (10/01/17 6:23 AM) 13.7 g/dL *LOW* (09/30/17 4:53 PM) 13.6 g/dL *LOW* (09/25/17 12:35 PM) Hgb [14.0-18.0 g/dL] 40.3 % *LOW* (10/01/17 6:23 AM) 41.5 % *LOW* (09/30/17 4:53 PM) 40.1 % *LOW* (09/25/17 12:35 PM) Hct [42.0-54.0 %] 84.7 fL (10/01/17 6:23 AM) 84.5 fL (09/30/17 4:53 PM) 83.7 fL (09/25/17 12:35 PM) MCV [80.0-94.0 fL] 27.7 pg (10/01/17 6:23 AM) 27.9 pg (09/30/17 4:53 PM) 28.3 pg (09/25/17 12:35 PM) MCH [27.0-31.0 pg] 32.7 g/dL (10/01/17 6:23 AM) 33.0 g/dL (09/30/17 4:53 PM) 33.8 g/dL (09/25/17 12:35 PM) MCHC [32.0-36.0 g/dL] 14.0 % (10/01/17 6:23 AM) 14.1 % (09/30/17 4:53 PM) 14.2 % (09/25/17 12:35 PM) RDW [11.5-14.5 %] 8.2 fL (10/01/17 6:23 AM) 8.0 fL (09/30/17 4:53 PM) 7.9 fL (09/25/17 12:35 PM) MPV [7.4-10.4 fL] 358 K/CMM (10/01/17 6:23 AM) 338 K/CMM (09/30/17 4:53 PM) 341 K/CMM (09/25/17 12:35 PM) Platelet [133-450 K/CMM] 81.0 % *HI* (10/01/17 6:23 AM) 90.0 % *HI* (09/30/17 4:53 PM) 39.6 % *LOW* (09/25/17 12:35 PM) Segs [45.0-75.0 %] 12.5 % *LOW* (10/01/17 6:23 AM) 5.8 % *LOW* (09/30/17 4:53 PM) 44.9 % *HI* (09/25/17 12:35 PM) Lymphocytes [20.0-40.0 %] 6.0 % (10/01/17 6:23 AM) 3.5 % (09/30/17 4:53 PM) 9.3 % (09/25/17 12:35 PM) Monocytes [2.0-12.0 %] 0.1 % (09/30/17 4:53 PM) 5.0 % *HI* (09/25/17 12:35 PM) Eosinophils [0.0-4.0 %] 0.5 % (10/01/17 6:23 AM) 0.6 % (09/30/17 4:53 PM) 1.2 % *HI* (09/25/17 12:35 PM) Basophils [0.0-1.0 %] 10.4 K/CMM *HI* (10/01/17 6:23 AM) 14.5 K/CMM *HI* (09/30/17 4:53 PM) 1.9 K/CMM (09/25/17 12:35 PM) Segs-Bands # [1.5-8.1 K/CMM] 1.6 K/CMM (10/01/17 6:23 AM) 0.9 K/CMM *LOW* (09/30/17 4:53 PM) 2.2 K/CMM (09/25/17 12:35 PM) Lymphocytes # [1.0-5.5 K/CMM] 0.8 K/CMM (10/01/17 6:23 AM) 0.6 K/CMM (09/30/17 4:53 PM) 0.5 K/CMM (09/25/17 12:35 PM) Monocytes # [0.0-0.8 K/CMM] 0.2 K/CMM (09/25/17 12:35 PM) Eosinophils # [0.0-0.5 K/CMM] 0.1 K/CMM (10/01/17 6:23 AM) 0.1 K/CMM (09/30/17 4:53 PM) 0.1 K/CMM (09/25/17 12:35 PM) Basophils # [0.0-0.2 K/CMM] Immunizations No [...] 11/02/17 Assessment and Plan Extracted from: Title: Surgery Staff Author: Precious Gary MD Date: 10/02/17 Surgery Staff Progress Note Precious Gary M.D. cc: POD #1 s/p LSG with [...] largest incision where deep fascial suture is VitalsTmp(F)[id number] 10/02 08:04 1897 21% 10/02 08:0098.288065/342475--- 10/02 04:0098.4---147/90--96--- 10/02 01:00-------158/74-------- 10/01 23:3698.6---165/97--98--- 24 Hr Tmax: 98.6F (37.00c) at 10/01 23:36Vital Signs are the last 5 in the past 48 hours. I&ORecordInOutBal 09/723hr Tot 3049 1500 1549 09/623hr Tot 3138 1055 2084 Labs (Last four charted values) WBC H 12.9(OCT 01)H 16.0(SEP 30)4.9(SEP 25) Hgb L 13.2(OCT 01)L 13.7(SEP 30)L 13.6(SEP 25) Hct L 40.3(OCT 01)L 41.5(SEP 30)L 40.1(SEP 25) Plt 358(OCT 01)338(SEP 30)341(SEP 25) Na 135(OCT 01)135(SEP 30)140(SEP 25) K 3.8(OCT 01)4.4(SEP 30)4.1(SEP 25) CO2 24(OCT 01)26(SEP 30)28(SEP 25) Cl 101(OCT 01)100(SEP 30)102(SEP 25) Cr 1.06(OCT 01)1.38(SEP 30)1.10(SEP 25) BUN 8(OCT 01)13(SEP 30)9(SEP 25) Glucose Random H 108(OCT 01)H 146(SEP 30)94(SEP 25) Ca 8.9(OCT 01)8.8(SEP 30)8.8(SEP 25) ASSESSMENT: POD #2 s/p LSG with [...] spirometry. 7. Call Precious Gary MD at [phone] for: fever of 101.5 degrees F or higher, any big increase in abdominal pain, any redness/drainage from incisions, any persistent nausea/emesis, or any questions or concerns. Discussed with patient and RN. All questions answered. Extracted from: Title: Surgery Staff Author: Precious Gary MD Date: 09/30/17 DATE OF OPERATION/PROCEDURE: 09.30.17 *_*_* SURGEON: Precious Gary M.D. FURNITURE INSPECTOR: 1. Eugene Wilkes M.D. 2. Paige Nuñez, surgical physician assistant. PREOPERATIVE DIAGNOSES: 1. Morbid obesity. 2. Hiatal [...] sized sleeve gastrectomy formed over a 36 citizen of [place] VISIGI bougie starting 5 cm from the [...] fashion. This was performed after the size 36-[place] VISIGI bougie had been carefully inserted and directed down into the patient's pyloric region. After the hiatal hernia repair, we then turn ed our attention to the posterior surface of the stomach to ensure all posterior attachments were taken down. Next, a black load [employer] stapler with TRS staple line reinforcement was [...]
--- OUTSIDE RECORDS SUMMARY | 2019-04-16 09:46 | XMS REPORT | Summary of Care ---
Author Author [facility] Organization [facility] Address Unknown Phone Unavailable Encounter HQ Nithya(FIN) [id number] Date(s): 11/01/17 - 11/02/17 [facility] [address] [place] [address]- [phone] Encounter Diagnosis Calculus of ureter (Final) - 11/07/17 Essential (primary) hypertension (Final) - Gastro-esophageal reflux disease without esophagitis (Final) - Morbid (severe) obesity due to excess calories (Final) - Ureterolithiasis (Discharge Diagnosis) - 11/01/17 Discharge Disposition: Home or Self Care Attending Physician: Binu Amor DO Vital Signs Most recent to 1 2 oldest [Reference Range]: Height 175.26 cm (11/01/17 8:35 PM) Temperature Oral 98.0 DegF 98.2 DegF [96.4-99.1 DegF] (11/02/17 1:17 AM) (11/01/17 8:35 PM) Blood Pressure 120/78 mmHg 129/80 mmHg [90-140/60-90 mmHg] (11/02/17 1:17 AM) (11/01/17 8:35 PM) Respiratory Rate 18 BRMIN 20 BRMIN [14-20 BRMIN] (11/02/17 1:17 AM) (11/01/17 8:35 PM) Peripheral Pulse 78 bpm 96 bpm Rate [60-100 bpm] (11/02/17 1:17 AM) (11/01/17 8:35 PM) Weight 118.182 kg (11/01/17 8:35 PM) Body Mass Index 38.48 m2 (11/01/17 8:35 PM) Problem List Condition Effective Dates Status Health Status Informant Arthralgia of Resolved knee(Confirmed) Hypertension(Confirm Active ed) Morbid Active obesity(Confirmed) Morbid Active obesity(Confirmed) Allergies, Adverse Reactions, Alerts Substance Reaction Severity Status NKDA Active Medications Cipro 500 mg oral tablet 500 mg=1 tab, PO, Q12H, X 7 day, # 14 tab, 0 Refill(s) Start Date: 11/01/17 Stop Date: 11/08/17 Status: Completed Flomax 0.4 mg oral capsule 0.4 mg=1 cap, PO, QPM, May discontinue when pain free, # 7 cap, 0 Refill(s) Start Date: 11/01/17 Stop Date: 11/08/17 Status: Ordered ibuprofen 800 mg oral tablet 800 mg=1 tab, PO, Q8H, PRN Pain, Take with food, X 5 day, # 30 tab, 0 Refill(s) Start Date: 11/01/17 Stop Date: 11/06/17 Status: Completed ketOROLAC 30 mg, Route: IVP, Drug form: INJ, ONCE, Dosing Weight 118.182, kg, Priority: ST AT, Start date: 11/01/17 22:50:00 CDT, Stop date: 11/01/17 22:50:00 CDT Start Date: 11/01/17 Stop Date: 11/01/17 Status: Completed morphine Sulfate 4 mg, 1 mL, Route: IVP, Drug form: SOLN, ONCE, Dosing Weight 118.182, kg, Priori ty: STAT, Start date: 11/01/17 22:21:00 CDT, Stop date: 11/01/17 22:21:00 CDT Notes: (Same as:MORPhine Sulfate) Start Date: 11/01/17 Stop Date: 11/01/17 Status: Completed ondansetron 4 mg, 2 mL, Route: IVP, Drug form: INJ, ONCE, Dosing Weight 118.182, kg, Priorit y: STAT, Start date: 11/01/17 22:21:00 CDT, Stop date: 11/01/17 22:21:00 CDT Notes: (Same as: Leslie) MEDICATION WASTE Product Size: 4 mgProduct Was verónica: ___ mg Start Date: 11/01/17 Stop Date: 11/01/17 Status: Completed ondansetron 4 mg oral tablet, disintegrating 4 mg=1 tab, PO, TID, PRN Nausea / Vomiting, Dissolve tab under tongue, # 20 tab, 0 Refill(s) Start Date: 11/01/17 Stop Date: 11/04/17 Status: Ordered Sodium Chloride 0.9% (Bolus) IV 1,000 mL, 1000 ml/hr, Infuse Over: 1 hr, Route: IV, 1,000, Drug form: INJ, ONCE, Priority: STAT, Dosing Weight 118.182 kg, Start date: 11/01/17 22:21:00 CDT, St op date: 11/01/17 22:21:00 CDT Start Date: 11/01/17 Stop Date: 11/01/17 Status: Completed Tylenol with Codeine #3 oral tablet 1 - 2 tab, PO, Q6H, PRN Pain, X 4 day, # 20 tab, 0 Refill(s) Start Date: 11/01/17 Stop Date: 11/05/17 Status: Completed Results ELECTROLYTES Most recent to 1 oldest [Reference Range]: Sodium Lvl [135-145 137 mEq/L mEq/L] (11/01/17 10:56 PM) Potassium Lvl 4.1 mEq/L [3.5-5.1 mEq/L] (11/01/17 10:56 PM) Chloride Lvl [95-109 100 mEq/L mEq/L] (11/01/17 10:56 PM) CO2 [24-32 mEq/L] 29 mEq/L (11/01/17 10:56 PM) AGAP [10.0-20.0 12.1 mEq/L mEq/L] (11/01/17 10:56 PM) CHEM PANEL Most recent to 1 oldest [Reference Range]: Creatinine Lvl 1.50 mg/dL [0.50-1.40 mg/dL] *HI* (11/01/17 10:56 PM) eGFR 68 mL/min/1.73m2 1 *NA* (11/01/17 10:56 PM) BUN [7-22 mg/dL] 5 mg/dL *LOW* (11/01/17 10:56 PM) B/C Ratio [6-25] 3 *LOW* (11/01/17 10:56 PM) Glucose Lvl [70-99 113 mg/dL mg/dL] *HI* (11/01/17 10:56 PM) Total Protein 8.6 g/dL [6.4-8.4 g/dL] *HI* (11/01/17 10:56 PM) Albumin Lvl [3.5-5.0 4.3 g/dL g/dL] (11/01/17 10:56 PM) Globulin [2.7-4.2 4.3 g/dL g/dL] *HI* (11/01/17 10:56 PM) A/G Ratio [0.7-1.6] 1.0 (11/01/17 10:56 PM) Calcium Lvl 9.1 mg/dL [8.5-10.5 mg/dL] (11/01/17 10:56 PM) ALT [0-65 unit/L] 36 unit/L (11/01/17 10:56 PM) AST [0-37 unit/L] 18 unit/L (11/01/17 10:56 PM) Alk Phos [39-136 65 unit/L unit/L] (11/01/17 10:56 PM) Bili Total [0.2-1.3 0.6 mg/dL mg/dL] (11/01/17 10:56 PM) Lipase Lvl [73-393 168 unit/L unit/L] (11/01/17 10:56 PM) 1Result Comment: The eGFR is calculated [...] 1 oldest [Reference Range]: UA Turbidity [Clear] Marked *ABN* (11/01/17 10:56 PM) UA Color Anastasia *NA* (11/01/17 10:56 PM) UA pH [5.0-8.0] 6.0 (11/01/17 10:56 PM) UA Spec Grav 1.027 [<=1.030] (11/01/17 10:56 PM) UA Glucose [Negative 50 mg/dL mg/dL] *ABN* (11/01/17 10:56 PM) UA Blood [Negative] Negative (11/01/17 10:56 PM) UA Ketones [Negative 80 mg/dL mg/dL] *ABN* (11/01/17 10:56 PM) UA Protein [Negative 100 mg/dL mg/dL] *ABN* (11/01/17 10:56 PM) UA Urobilinogen 2.0 mg/dL [0.1-1.0 mg/dL] *HI* (11/01/17 10:56 PM) UA Bili [Negative] Small *ABN* (11/01/17 10:56 PM) UA Leuk Est Negative [Negative] (11/01/17 10:56 PM) UA Nitrite Negative [Negative] (11/01/17 10:56 PM) UA WBC [0-5 /HPF] 17 /HPF *HI* (11/01/17 10:56 PM) UA RBC [0-2 /HPF] 5 /HPF *HI* (11/01/17 10:56 PM) UA Sq Epi [Few /LPF] Moderate /LPF *ABN* (11/01/17 10:56 PM) UA Hyal Cast [0-2 86 /LPF /LPF] *HI* (11/01/17 10:56 PM) UA Mucus [None Seen Many /LPF /LPF] *ABN* (11/01/17 10:56 PM) UA WBC Cast [<=0 4 /LPF /LPF] *HI* (11/01/17 10:56 PM) HEMATOLOGY Most recent to 1 oldest [Reference Range]: WBC [3.7-10.4 K/CMM] 9.3 K/CMM (11/01/17 10:56 PM) RBC [4.70-6.10 4.91 M/CMM M/CMM] (11/01/17 10:56 PM) Hgb [14.0-18.0 g/dL] 13.4 g/dL *LOW* (11/01/17 10:56 PM) Hct [42.0-54.0 %] 41.0 % *LOW* (11/01/17 10:56 PM) MCV [80.0-94.0 fL] 83.5 fL (11/01/17 10:56 PM) MCH [27.0-31.0 pg] 27.3 pg (11/01/17 10:56 PM) MCHC [32.0-36.0 32.7 g/dL g/dL] (11/01/17 10:56 PM) RDW [11.5-14.5 %] 14.2 % (11/01/17 10:56 PM) MPV [7.4-10.4 fL] 8.6 fL (11/01/17 10:56 PM) Platelet [133-450 317 K/CMM K/CMM] (11/01/17 10:56 PM) Segs [45.0-75.0 %] 79.1 % *HI* (11/01/17 10:56 PM) Lymphocytes 12.6 % [20.0-40.0 %] *LOW* (11/01/17 10:56 PM) Monocytes [2.0-12.0 7.5 % %] (11/01/17 10:56 PM) Eosinophils [0.0-4.0 0.4 % %] (11/01/17 10:56 PM) Basophils [0.0-1.0 0.4 % %] (11/01/17 10:56 PM) Segs-Bands # 7.4 K/CMM [1.5-8.1 K/CMM] (11/01/17 10:56 PM) Lymphocytes # 1.2 K/CMM [1.0-5.5 K/CMM] (11/01/17 10:56 PM) Monocytes # [0.0-0.8 0.7 K/CMM K/CMM] (11/01/17 10:56 PM) Microbiology Reports TEST: Culture: Urine STATUS: Auth (Verified) BODY SITE: SOURCE: Urine, Clean Catch COLLECTED DATE/TIME: 11/01/17 10:56 PM FINAL REPORT <10,000 CFU/mL Skin Digna Immunizations No data available for this section [...]
--- OUTSIDE RECORDS SUMMARY | 2019-04-16 09:46 | XMS REPORT | Summary of Care ---
Author Author [facility] Organization [facility] Address Unknown Phone Unavailable Encounter HQ Nithya(FIN) [id number] Date(s): 05/01/18 - 05/01/18 [facility] [address] [place] [address]- Encounter Diagnosis Liver disease, unspecified (Final) - 05/06/18 Discharge Disposition: Home or Self Care Attending [...]
--- OUTSIDE RECORDS SUMMARY | 2019-04-16 09:46 | XMS REPORT | Summary of Care ---
Author Author [facility] Organization [facility] Address Unknown Phone Unavailable Encounter HQ Nithya(FIN) [id number] Date(s): 11/02/17 - 11/03/17 [facility] [address] [place] [address]- Encounter Diagnosis Calculus of ureter (Final) - 11/10/17 Vomiting, unspecified (Final) - Essential (primary) hypertension (Final) - Calculus of ureter (Discharge Diagnosis) - 11/03/17 Abdominal pain, epigastric (Discharge Diagnosis) - 11/03/17 Acute vomiting (Discharge Diagnosis) - 11/03/17 Discharge Disposition: Home or Self Care Attending Physician: Binu Amor DO Vital Signs 1 2 3 [...]
[2019-04-16] MEDS ORDERED: KETOROLAC TROMETHAMINE 30 MG/ML VIAL IV STA (10:02)
--- NOTE | 2019-04-16 11:11 | Diagnostic Imaging Report ---
CT of the abdomen and pelvis History: Abdominal pain, flank pain Comparison: None available. Technique: Multidetector CT scanning of the abdomen and pelvis was performed from the level of the lung bases to the inferior pubic ramus, without contrast DOSE REDUCTION: The examination was performed according to departmental dose-optimization program which includes automated exposure control, adjustment of the mA and/or kV according to patient size and/or use of iterative reconstruction technique. Discussion: The lung bases are clear. Lack of IV contrast limits evaluation of solid and hollow organs. No focal hepatic lesions are identified. The gallbladder is present and nondistended. No radiopaque gallstones are identified. There is no intrahepatic or extrahepatic biliary dilatation. The spleen is within normal limits. The bilateral adrenal glands are unremarkable. The pancreas is within normal limits. The kidneys are normal in size. No kidney stones are identified. There is no hydroureteronephrosis. The patient is status post gastric bypass. The stomach, small, and large bowel are nondistended. There is no evidence of obstruction. There are no signs of appendicitis. There is no bowel wall thickening. The urinary bladder is within normal limits. The abdominal aorta is of normal course and caliber. There is no free intraperitoneal air or ascites. No acute osseous abnormalities are identified. IMPRESSION: No CT evidence of acute abdominal or pelvic pathology. Signed by: Blue Gaytan MD on 04/16/2019 11:07 AM
[2019-04-16 11:17] VITALS: BP 121/74
[2019-04-16] MEDS ORDERED: PREDNISONE20 MG PO (11:30)
== END 2019-04-16 11:40 | disposition home or self-care (01) ==
LOC: FSED 09:40
DX: R10.9 Unspecified abdominal pain (principal); Z98.84 Bariatric surgery status
CPT/HCPCS: 74176; 80053; 81003; 85025; 96374; 99284; J1885

== ENCOUNTER 2019-10-08 02:54 | Emergency (ER) | payer MEDICARE, OTHER ==
[~2019-10-08] VITALS: Ht 177.8 cm; Wt 69.4 kg
[~2019-10-08 02:54] MED LIST: PREDNISONE20 MG PO
--- OUTSIDE RECORDS SUMMARY | 2019-10-08 02:57 | XMS REPORT ---
Author [facility] Address Unknown Phone Unavailable Care Team Providers Care Preparation Room Worker Name Role Phone Traci KO Unavailable Unavailable Problems This patient has no known problems. Allergies, Adverse Reactions, Alerts This patient has no known allergies or adverse reactions. Medications This patient has no known medications. Results Test Description Test Time Test Comments Text Results Atomic Results Result Comments CT ABD/PEL WO CONTRAST-HOPD 2019-04-16 11:03:00 [place] [address] Patient Name: KALYN ANDRADE MR #: [id number] : 1980 Age/Sex: 38/M Req #: [id number] Adm Physician: Ordered by: RUI KO MD Report #: [id number] Location: [facility] Room/Bed: Procedure: [id number] HOPD/CT ABD/PEL WO CONTRAST-HOPD Exam Date: 04/16/19 Exam Time: 1031 REPORT STATUS: Signed CT of the abdomen and pelvis History: Ab dominal pain, flank pain Comparison: None available. Technique: Multidetector CT scanning of the abdomen and pelvis was performed from the level of the lung bases to the inferior pubic ramus, without contrast DOSE REDUCTION: The examination was performed according to departmental dose-optimization program which includes automated exposure control, adjustment of the mA and/or kV according to patient size and/or use of iterative reconstruction technique. Discussion: The lung bases are clear. Lack of IV contrast limits evaluation of solid and hollow organs. No focal hepatic lesions are identified. The gallbladder is present and nondistended. No radiopaque gallstones are identified. There is no intrahepatic or extrahepatic biliary dilatation. The spleen is within normal limits. The bilateral adrenal glands are unremarkable. The pancreas is within normal limits. The kidneys are normal in size. No kidney stones are identified. There is no hydroureteronephrosis. The patient is status post gastric bypass. The stomach, small, and large bowel are nondistended. There is no evidence of obstruction. There are no signs of appendicitis. There is no bowel wall thickening. The urinary bladder is within normal limits. The abdominal aorta is of normal course and caliber. There is no free intraperitoneal air or ascites. No acute osseous abnormalities are identified. IM PRESSION: No CT evidence of acute abdominal or pelvic pathology. Signed by: Blue Cao MD on 04/16/2019 11:07 AM Dictated By: BLUE CAO MD [id number] Transcribed By: ROSALVA on 04/16/197 COPY TO: RUI KO MD
[2019-10-08] MEDS: SODIUM CHLORIDE 0.9% 1000ML 1,000 ML IV STA (03:33)
[2019-10-08] MEDS: METHYLPREDNISOLONE SOD SUCC 125 MG/2ML VIAL IV STA (03:34)
[2019-10-08] MEDS ORDERED: SODIUM CHLORIDE 0.9% 1000ML 1,000 ML ONE (03:36)
[2019-10-08] MEDS ORDERED: METHYLPREDNISOLONE SOD SUCC 125 MG/2ML VIAL ONE (03:36)
[2019-10-08] MEDS ORDERED: SODIUM CHLORIDE 0.9% 50ML 50 ML ONE (03:38)
[2019-10-08] MEDS ORDERED: IOPAMIDOL 370 MG/ML 200 ML INFUS..BTL INJ ONE (03:38)
--- NOTE | 2019-10-08 04:04 | NUR ---
PT RETURNED TO RM 1 VIA WC. HE IS AWARE AWAITING CT RESULTS
[2019-10-08] MEDS ORDERED: SODIUM CHLORIDE 0.9% 1000ML 1,000 ML IV ONE (04:15)
[2019-10-08] MEDS: KETOROLAC TROMETHAMINE 30 MG/ML VIAL IV STA (04:28)
--- NOTE | 2019-10-08 04:42 | Diagnostic Imaging Report ---
EXAM: CT Abdomen and Pelvis WITH contrast INDICATION: Abdominal Pain, diarrhea COMPARISON: CT abdomen/pelvis 04/16/2019. TECHNIQUE: Abdomen and pelvis were scanned utilizing a multidetector helical scanner from the lung base to the pubic symphysis after administration of IV contrast. Coronal and sagittal reformations were obtained. Routine protocol was performed. Scan was performed when during portal venous phase. IV CONTRAST: 100 cc of Isovue-370 ORAL CONTRAST: None. COMPLICATIONS: None RADIATION DOSE: Total DLP: 496.8 mGy*cm Estimated effective dose: (DLP x 0.015 x size factor) mSv CTDIvol has been reviewed. It is below the limits set by the Radiation Protocol Committee (RPC). FINDINGS: LINES and TUBES: None. LOWER THORAX: Unremarkable HEPATOBILIARY: No evidence of focal lesion. No biliary ductal dilation. GALLBLADDER: No radio-opaque stones or sludge. No wall thickening. SPLEEN: No splenomegaly. PANCREAS: No focal masses or ductal dilatation. ADRENALS: No adrenal nodules KIDNEYS/URETERS: Kidneys enhance symmetrically. No evidence of hydronephrosis, solid mass, or stone. GI TRACT: Status post gastric sleeve. No evidence of bowel obstruction. Mild wall thickening within the descending and sigmoid colon. Appendix is normal. PELVIC ORGANS/BLADDER: Partially decompressed with mild wall thickening. LYMPH NODES: No lymphadenopathy. VESSELS: Unremarkable. PERITONEUM / RETROPERITONEUM: No free air or fluid. BONES AND SOFT TISSUES: Unremarkable. CONCLUSION: Mild wall thickening within the descending and sigmoid colon, which may represent infectious or inflammatory colitis. Signed by: Dr. Ella Zavala MD on 10/08/2019 4:40 AM
--- NOTE | 2019-10-08 04:51 | NUR ---
IN DISCUSSING TEST RESULTS WITH PT
[2019-10-08 05:22] VITALS: BP 142/87
== END 2019-10-08 05:22 | disposition home or self-care (01) ==
LOC: FSED 02:54
DX: R53.81 Other malaise (principal); R10.9 Unspecified abdominal pain; K52.9 Noninfective gastroenteritis and colitis, unspecified; K51.90 Ulcerative colitis, unspecified, without complications
CPT/HCPCS: 74177; 80048; 80076; 81003; 85025; 96374; 96375; 99284; J1885; J2930; J7030; Q9967

== ENCOUNTER 2021-04-06 05:30 | Emergency (ER) | payer MEDICARE ==
[~2021-04-06] VITALS: Ht 177.8 cm; Wt 69.4 kg
[2021-04-06] MEDS ORDERED: PREDNISONE20 MG PO (06:24)
[2021-04-06] MEDS ORDERED: HYDROCODON-ACE1 EA12 PO ×2 (06:26→06:31)
[2021-04-06] MEDS ORDERED: PREDNISONE 20 MG TAB PO ONE (06:30)
[2021-04-06] MEDS ORDERED: PREDNISONE 20 MG TAB ONE (06:31)
== END 2021-04-06 06:41 | disposition home or self-care (01) ==
LOC: FSED 06:08
DX: M79.642 Pain in left hand (principal); L40.50 Arthropathic psoriasis, unspecified; M54.9 Dorsalgia, unspecified; G89.29 Other chronic pain; Z87.442 Personal history of urinary calculi; Z98.84 Bariatric surgery status
CPT/HCPCS: 99283; J7512

== ENCOUNTER 2021-05-26 04:01 | Emergency (ER) | payer MEDICARE, OTHER ==
[~2021-05-26] VITALS: Ht 177.8 cm; Wt 69.4 kg
[~2021-05-26 04:01] MED LIST changes: +HYDROCODON-ACE1 EA12 PO
[2021-05-26] MEDS ORDERED: IBUPROFEN IB200 MG PO (04:36)
== END 2021-05-26 04:43 | disposition home or self-care (01) ==
LOC: FSED 04:37
DX: M25.522 Pain in left elbow (principal); S50.02XA Contusion of left elbow, initial encounter; L40.50 Arthropathic psoriasis, unspecified; F32.A Depression, unspecified; M54.9 Dorsalgia, unspecified; G89.29 Other chronic pain; Z87.442 Personal history of urinary calculi
CPT/HCPCS: 99282

== ENCOUNTER 2024-06-22 03:13 | Emergency (ER) | payer MEDICARE, MEDICAID ==
[~2024-06-22] VITALS: Ht 172.7 cm; Wt 77.6 kg
[~2024-06-22 03:13] MED LIST changes: +BROMFED DM COU118 ML PO; +IBUPROFEN IB200 MG PO; +KETOROLAC TROME10 MG PO; +PAXLOVID 300-11 EAC1 PO; +TAMIFLU6 MG/1 ML PO
[2024-06-22 03:15] VITALS: PULSE 113; RESP 18; TEMP 101.2
[2024-06-22] MEDS ORDERED: ACETAMINOPHEN 325 MG TAB ONE (03:45)
[2024-06-22] MEDS ORDERED: FAMOTIDINE 20 MG/2 ML VIAL IV ONE (03:46)
[2024-06-22] MEDS ORDERED: KETOROLAC TROMETHAMINE 30 MG/ML VIAL ONE (03:46)
[2024-06-22] MEDS ORDERED: SODIUM CHLORIDE 0.9% 1000ML 1,000 ML ONE (03:46)
[2024-06-22] MEDS ORDERED: TAMIFLU6 MG/1 ML PO (04:16)
[2024-06-22 04:39] VITALS: BP 129/74; PULSE 81; RESP 18; TEMP 98.3; O2SAT 100
[2024-06-22] MEDS: FAMOTIDINE 20 MG/2 ML VIAL IV STA (04:43)
[2024-06-22] MEDS: ACETAMINOPHEN 325 MG TAB PO ONE (04:44)
[2024-06-22] MEDS: SODIUM CHLORIDE 0.9% 1000ML 1,000 ML IV ONE (04:44)
[2024-06-22] MEDS: KETOROLAC TROMETHAMINE 30 MG/ML VIAL IV STA (04:45)
== END 2024-06-22 04:41 | disposition home or self-care (01) ==
LOC: FSED 03:19
DX: R06.02 Shortness of breath (principal); J10.1 Influenza due to other identified influenza virus with other respiratory manifestations; L40.50 Arthropathic psoriasis, unspecified; I10 Essential (primary) hypertension; F32.A Depression, unspecified; M54.9 Dorsalgia, unspecified; G89.29 Other chronic pain; Z11.52 Encounter for screening for COVID-19; Z98.84 Bariatric surgery status
CPT/HCPCS: 0223U; 80048; 80076; 81003; 83518 ×2; 84484; 85025; 87400; 93005; 99284; J1885; J7030